=== PATIENT | female | born 1985 | race Caucasian/White ===

== ENCOUNTER 2020-04-08 08:52 | Outpatient (CLI) | payer OTHER, SELFPAY ==
--- NOTE | ~2020-04-08 | US_ITS ---
EXAMINATION: US pelvic complete w TV DATE: 04/08/2020 09:25 INDICATION: Left ovarian cyst. TECHNIQUE: Multiple transabdominal and transvaginal sonographic images of the pelvis were obtained. COMPARISON: None. FINDINGS: TRANSABDOMINAL ULTRASOUND: The uterus measures 9.8 x 5.1 x 5.8 cm. There is no free fluid in the pelvis. TRANSVAGINAL ULTRASOUND: The endometrial complex measures 3 mm in thickness. There is a linear shadowing echogenic structure i n the endometrial complex in the uterine fundus. There is a second linear echogenic structure in the lower uterine segment and cervix. The right ovary measures 3.1 x 2.0 x 2.9 cm. The left ovary measure s 4.4 x 1.5 x 1.1 cm. There is normal vascular flow in the ovaries. IMPRESSION: 1. Two linear echogenic structures in the endometrial complex, one in the fundus, and one in the lowe r uterine segment and cervix. Assuming the patient has only had one intrauterine device placement pro cedure, the lower structure may be a device in abnormal position, and the echogenic structure in the fundus may be calcifications or foci of gas. Alternatively, these structures may be a fractured devic e in two pieces, which would be rare. Reviewed, dictated and finalized at location A. STANT SECRETARY IMPRESSION: 1. Two linear echogenic structures in the endometrial complex, one in the fundu s, and one in the lower uterine segment and cervix. Assuming the patient has on ly had one intrauterine device placement procedure, the lower structure may be a device in abnormal position, and the echogenic structure in the fundus may be calcifications or foci of gas. Alternatively, these structures may be a fractu red device in two pieces, which would be rare.
== END 2020-04-08 08:53 | disposition home or self-care (01) ==
PROVIDERS: Family Provider Family Medicine; PCP Family Medicine; Visit Provider Obstetrics & Gynecology Gynecology
DX: N83.202 Unspecified ovarian cyst, left side (principal)
CPT/HCPCS: 76830; 76856

== ENCOUNTER 2020-04-15 10:40 | Outpatient (CLI) | payer OTHER, SELFPAY ==
--- NOTE | ~2020-04-15 | US_ITS ---
EXAMINATION: US pelvic complete w TV DATE: 04/15/2020 11:22 INDICATION: Check IUD. Comparison:Ultrasound dated 04/08/2020 TECHNIQUE: Multiple transabdominal and endovaginal sonographic images of the pelvis performed. FINDINGS: The uterus measures 9.8 x 4.3 x 5.2 cm. The endometrial complex measures 5 mm. No IUD is id entified. The right ovary measures 2.9 x 4.1 x 1.8 cm and the left ovary measures 3.6 x 2.5 x 1.8 cm. There ar e small follicles in each ovary.Normal doppler signal in both ovaries. There is no free fluid in the pelvis. There are no abnormal masses seen on either side. IMPRESSION: 1. Unremarkable pelvic ultrasound. No IUD identified. Reviewed, dictated and finalized at location B. TING MATERIAL REMOVER
== END 2020-04-15 10:41 | disposition home or self-care (01) ==
PROVIDERS: Visit Provider Obstetrics & Gynecology Gynecology
DX: R93.89 Abnormal findings on diagnostic imaging of other specified body structures (principal)
CPT/HCPCS: 76830; 76856

== ENCOUNTER 2021-05-18 10:42 | Observation (INO) | payer OTHER, SELFPAY ==
[2021-05-18] VITALS (9 sets, daily range): BP systolic 124–176; BP diastolic 86–115; PULSE 70–106; RESP 15–20; TEMP 36.1–37.1; O2SAT 98–100; BMI 28.5
--- NOTE | ~2021-05-18 | XR_ITS ---
EXAMINATION: XR chest 2V DATE: 05/18/2021 11:14 INDICATION: Left chest pain. TECHNIQUE: Frontal and lateral views of the chest were obtained. COMPARISON: None. FINDINGS: There are mild airspace opacities at left lung base. No pleural effusion or pneumothorax. T he heart size is normal. IMPRESSION: 1. Mild airspace opacities at left lung base, consistent with atelectasis versus pneumonia. Reviewed, dictated and finalized at location A. IMPRESSION: 1. Mild airspace opacities at left lung base, consistent with atelectasis versu s pneumonia.
--- NOTE | 2021-05-18 10:52 | ECG_ITS ---
Measurements Intervals [place] Rate: 94 P: 32 AK: 163 QRS: 2 QRSD: 93 T: 80 QT: 352 QTc: 442 Interpretive Statements SINUS RHYTHM POSSIBLE LEFT ATRIAL ENLARGEMENT [-0.1mV P WAVE IN V1/V2] NONSPECIFIC T-WAVE ABNORMALITY INTERPRETATION BASED ON A DEFAULT AGE OF 40 YEARS NO PREVIOUS ECG AVAILABLE FOR COMPARISON Electronically Signed On 05-18-2021 14:01:53 CDT by Kristy Zapata M.D.
[2021-05-18 11:01] LABS: Basophils Percent Auto 0.2 % (0.2-1.2); Eosinophils Absolute Auto 0.1 K/mm3 (0-0.3); Eosinophils Percent Auto 0.9 % (0-4.4); Hematocrit 44.7 % (37.0-47.0); Hemoglobin 15.6 g/dL (12.0-15.0); Immature Granulocyte Absolute 0.02 K/mm3 (0.00-0.031); Immature Granulocyte Percent A 0.2 % (0-0.5); Lymphocytes Percent Auto 22.6 % (18.3-44.2); Mean Corpuscular HGB Conc 34.9 g/dl (32-36); Mean Corpuscular Hemoglobin 30.5 pg (26-34); Mean Corpuscular Volume 87.3 fl (80-100); Mean Platelet Volume 8.6 fl (7.4-10.4); Monocytes Absolute Auto 0.6 K/mm3 (0.1-0.6); Monocytes Percent Auto 6.7 % (2.6-8.5); Neutrophils Absolute Auto 6.1 K/mm3 (1.3-6.7); Neutrophils Percent Auto 69.4 % (45.5-73.1); Platelet Count Result 276 k/mm3 (150-375); Red Blood Count 5.12 M/mm3 (4.2-5.4); Red Cell Distribution Width 11.4 % (11.5-14.5); White Blood Count 8.8 K/mm3 (4.5-10.0)
--- NOTE | 2021-05-18 11:01 | ED.CHESTPAIN ---
HPI - Chest Pain General Chief Complaint: Chest Pain Stated Complaint: Chest pain, L arm pain Time Seen by Provider: 05/18/21 10:47 Source: patient Mode of arrival: ambulatory Limitations: no limitations History of Present Illness HPI narrative: This is a 35-year-old female that presents to the emergency department for left-sided chest pain. Present since early this morning. Reports the pain is a dull, constant pain. It radiates into her left shoulder. It is worse when she moves around sometimes. She tried taking a Tums with little relief. Reports strong family history of CAD. Denies fever, cough, shortness of breath, nausea or vomiting. Related Data Home Medications Medication Instructions Recorded Confirmed amlodipine 10 mg PO DAILY 01/22/19 05/18/21 levonorgestrel [Mirena] 1 device INTRAUTERINE ONCE 01/22/19 05/18/21 ergocalciferol (vitamin D2) 1,250 mcg PO DAILY 05/18/21 05/18/21 lisinopril 20 mg PO DAILY 05/18/21 05/18/21 tramadol 50 mg PO QID 05/18/21 05/18/21 Allergies Allergy/AdvReac Type Severity Reaction Status Date / Time AMOXICILLIN TRIHYDRATE Allergy Mild Uncoded 11/04/18 09:56 POTASSIUM CLAVULANATE Allergy Mild Uncoded 11/04/18 09:56 Review of Systems Review of Systems: CONSTITUTIONAL: Denies fever CARDIOVASCULAR: Reports chest pain. Denies palpitations, or edema. RESPIRATORY: Denies cough or dyspnea. GASTROINTESTINAL: Denies abdominal pain, nausea, vomiting All systems reviewed & are unremarkable except as noted in HPI and below PMFSH Past Medical History Medical History (Updated 05/18/21 @ 13:53 by Liss Florentino PA-C) HTN (hypertension) Surgical History Surgical History (Updated 01/22/19 @ 14:29 by Tere Venegas, DOUBLE END TENON OPERATOR) Hx of tonsillectomy Previous back surgery Social History Social History (Updated 01/22/19 @ 14:30 by Tere Venegas, DOUBLE END TENON OPERATOR) Smoking status: Current every day smoker Tobacco type: cigarettes Alcohol intake: current Alcohol use details: SOCIAL Substance use: never Gender identity (if verbalized by the patient): Female Exam Narrative: GENERAL: Well-appearing, well-nourished, and in no acute distress. HEAD: Normocephalic, atraumatic. EYES: EOMI. CHEST: Clear to auscultation. No respiratory distress. No wheezes rales or rhonchi HEART: Regular rate and rhythm. No murmur heard. Normal peripheral pulses. EXTREMITIES: Normal range of motion. No edema. SKIN: Warm, dry, no rash. NEURO: No focal deficits. Alert and oriented x3. PSYCH: Normal mood and affect Course Consultations Consultation #1: Spoke with Arcelia with the heart care group. No further recommendation for anticoagulation at this time. Will see the patient and decide further plan. Date: 05/18/21 Consultation #2: Spoke with hospitalist about patient and work-up who accepts admission Date: 05/18/21 Vital Signs Vital signs: Vital Signs Temperature 98.5 F 05/18/21 10:46 Pulse Rate 106 H 05/18/21 10:46 Respiratory Rate 16 05/18/21 10:46 Blood Pressure 176/115 H 05/18/21 10:46 Pulse Oximetry 98 05/18/21 10:46 Temperature 98.5 F 05/18/21 10:46 Pulse Rate 76 05/18/21 12:00 Respiratory Rate 18 05/18/21 12:00 Blood Pressure 124/86 05/18/21 12:00 Pulse Oximetry 100 05/18/21 12:00 MDM - Chest Pain MDM Narrative Medical decision making narrative: Patient presents to the emergency department for chest pain ongoing since early this morning. Hypertensive on arrival. This downtrended without intervention. Most recent blood pressure 124/86. CBC shows mild hemoconcentration. Metabolic panel without concerning findings. EKG without acute ST changes. Her baseline troponin was elevated to 0.979. D-dimer is not elevated. Bedside test is negative. Chest x-ray shows mild airspace opacities at the left lung base consistent with atelectasis versus pneumonia. Patient denies any fever or cough. Patient reports relief in her pain with morphine. Given a
[2021-05-18] MEDS: ASPIRIN 81 MG CHEWABLE TABLET 324 MG PO (11:05)
[2021-05-18 11:11] LABS: Prothrombin Time 13.1 Seconds (11.1-14.7)
[2021-05-18 11:12] LABS: Alanine Aminotransferase 28 U/L (4-35); Albumin Level 4.7 g/dL (3.5-5.1); Alkaline Phosphatase 68 U/L (38-126); Anion Gap 9 mmol/L (8-16); Aspartate Amino Transferase 42 U/L (14-36); Bilirubin,Total 0.5 mg/dL (0.2-1.3); Blood Urea Nitrogen 7 mg/dL (7-17); Calcium 9.4 mg/dL (8.4-10.2); Carbon Dioxide 25 mmol/L (22-30); Chloride 102 mmol/L (98-107); Estimated CRCL calculation 129 ml/min; Estimated Glomerular Filt Rate > 60; Glucose 138 mg/dL (65-110); Lipase 78 U/L (23-300); Partial Thromboplastin Time 22.4 SECONDS (22.3-36.8); Potassium 3.6 mmol/L (3.4-5.0); Sodium 136 mmol/L (137-145)
[2021-05-18 11:26] LABS: Troponin I 0.979 ng/mL (0.000-0.034)
[2021-05-18] MEDS: MORPHINE SULFATE (*CRX) 2 MG/ML INJ IV PUSH (11:27)
[2021-05-18] MEDS: FAMOTIDINE 20 MG/2 ML VIAL IV PUSH (11:27)
[2021-05-18] MEDS: ONDANSETRON INJ 4 MG/2 ML VIAL IV PUSH (11:27)
[2021-05-18 11:28] LABS: D Dimer 0.27 ug/mL (<0.48)
--- NOTE | 2021-05-18 14:47 | ADMGEN ---
This patient, Antonia Kraft, was admitted to [facility] at 1432 from the ED. Patient/family oriented to hospital policies and general routines including ID bracelet, bed and alarms, visiting hours, pain management, procedures, bathroom and other care routines, personal items, smoking policy, room service/diet, and visiting hours. Information on how to activate the Rapid Response Team has been discussed. Patient/Family are encouraged to report perceived risks to care and to ask questions if they do not understand what they are told or what they should do.
--- NOTE | 2021-05-18 15:29 | PM.CNCAR ---
Assessment and Plan Assessment and plan (1) NSTEMI (non-ST elevated myocardial infarction): Code(s): I21.4 - Non-ST elevation (NSTEMI) myocardial infarction Status: Acute Assessment and Plan: Young woman who presents with an NSTEMI. Hemodynamically stable but has some mild recurrent discomfort this afternoon. Heparin drip Aspirin, metoprolol, atorvastatin, p.r.n. nitro, p.r.n. morphine Check lipids Check test EKG in the morning Cardiac catheterization tomorrow. Reviewed the procedure with the patient and her significant other, Jose. Reviewed possible risks and complications with patient including breathing problems, bleeding problems, blood vessel problems, unanticipated surgery, allergic reactions, kidney problems, CVA, DC, and among others. Discussed possibility of stenting and possible need for DAPT. Discussed the possibility that if DAPT is interrupted stent thrombosis can occur resulting in heart attack and . Patient understands risks and desires to proceed. (2) Hypertension: Code(s): I10 - Essential (primary) hypertension Status: Acute Assessment and Plan: Has been controlled with amlodipine and lisinopril. History of Present Illness History of Present Illness Consult date/time: 05/18/21 15:29 Requesting physician: Liss Florentino PA-C Consult reason: chest pain Reason For Visit: [facility], Elevated Troponin Narrative: Antonia Kraft (jareth Lowe) is a 29-year-old female whom I was asked to see at the request of Dr. George for my advice and opinion regarding her chest pain and elevated troponins in consultation. Antonia felt tired yesterday but was otherwise in her normal state of health. Around 3:00 a.m. she woke up with left-sided chest discomfort radiating strongly to her left arm. There was an hard to describe pain. She was able to go back to sleep and on awakening she had mild discomfort. She went to work but the discomfort intensified she felt very very weak and tired. There were no associated symptoms. She was brought to the emergency room and given aspirin and morphine with relief. Troponins are 0.979 and 2.880. Some mild discomfort has returned this afternoon. Renee has history of hypertension but no diabetes or hyperlipidemia. She quit smoking 2 years ago but does vape. She has a strong family history of premature heart disease with her father having his 1st DC age 31 and brother having his DC age 36. She has been able to exert-- as much as her back pain will allow -- w/o cardiac sx. She has an IUD. No bleeding problems. EKG today at 10:48 a.m. showed sinus rhythm with some nonspecific ST changes, personally reviewed. Review of Systems Constitutional: Constitutional: Reports fatigue and Reports weakness Eyes: Eyes: Reports no additional eye complaints ENT: Denies epistaxis Cardiovascular: Cardiovascular: Reports chest pain, Denies diaphoresis, Denies pedal edema, Denies leg edema, Denies lightheadedness and Denies palpitations Respiratory: Respiratory: Denies dyspnea and Denies dyspnea on exertion Gastrointestinal: Gastrointestinal: Denies abdominal pain, Denies hematochezia and Denies hematemesis Genitourinary: Genitourinary: Denies hematuria Musculoskeletal: Musculoskeletal: Reports myalgias Comments: Slipped and fell in bathroom recently; soreness and bruises on right hip and face. Integumentary/Breasts: Skin/Breast: Denies rash Neurologic: Reports headache(s) Psychiatric: Psychiatric: Reports no additional psychiatric complaints [facility], [facility] Past Medical History Medical History (Updated 05/18/21 @ 16:24 by Kristy Zapata MD) Chronic back pain HTN (hypertension) Hypertension NSTEMI (non-ST elevated my
[2021-05-18] MEDS: HEPARIN SOD/D5W 100 UNITS/ML 25,000 UNITS/250 ML BAG 9 UNITS IV CONT (16:50)
--- NOTE | 2021-05-18 17:00 | PM.IMHP ---
H&P: HPI History of Present Illness Date/Time: 05/18/21 17:00 Chief Complaint: Chest pain. Narrative: This is a pleasant 35-year-old female with hypertension who presented to the emergency department for evaluation of chest pain. She was awakened from sleep at about 03:00 with left anterior chest pain radiating to the left upper arm which she has a difficult time describing. The closes she could come is a severe aching pain. Initially she thought perhaps she slept on her arm wrong and the discomfort eased up after while and she was able to fall black asleep. The discomfort was still there when she got up this morning but was not nearly as severe and she was able to go to work however while at work the discomfort intensified and she began to feel extremely weak with sweats and fatigue. EKG on arrival to the emergency department showed a sinus rhythm with some nonspecific ST changes and her initial troponin was elevated at 0.979 with a 3 hour troponin of 2.880. She has since been started on a heparin drip and she will be going to the clinical laboratory manager tomorrow. At the time my evaluation she is understandably a bit anxious but she is otherwise feeling okay. Prior to today she has not had any chest discomfort, either at rest or with exertion. It should be noted she has a history of premature coronary artery disease with her father having his 1st NV at the age of 31 and her half brother having his 1st NV at the age of 36. Review of Systems Review of Systems: Twelve systems were reviewed. No fever or chills. She frequently sweats but it was perhaps a bit more today. No recent cold or flu symptoms though she did have COVID at the beginning of the year. No orthopnea, PND, or lower extremity edema. She denies shortness of breath, pleuritic pain, and cough. No nausea, vomiting, or diarrhea. No syncope or near syncope. Except as documented, all other systems were reviewed and are negative. PENDING SALE TO [facility] Past Medical History Medical History Chronic back pain Hypertension NSTEMI (non-ST elevated myocardial infarction) (05/18/21) Psoriasis Psoriatic arthritis Surgical History Surgical History (Updated 05/18/21 @ 21:25 by Tamara Lazo PA-C) History of back surgery History of tonsillectomy Family History Family History Father Heart attack, Onset Age: 31 Three heart attacks Hx of CABG And valve surgery Sleep apnea Sibling Heart attack, Onset Age: 36 Grandparent Breast cancer COPD (chronic obstructive pulmonary disease) Mother Leukemia COPD (chronic obstructive pulmonary disease) Sleep apnea Psoriasis Social History Social History (Updated 05/18/21 @ 21:25 by Tamara Lazo PA-C) Social History: Works as a [employer]. Significant other is Bill. Two children ages 8 and 17 (as of 05/2021) Smoking packs per day: 0.5 Smoking cigarettes per day: 10.0 Years smoked: 15 Smoking pack-years: 7.50 Smoking status: Former smoker Tobacco type: cigarettes and e-cigarettes/vaping Alcohol intake: never Alcohol use details: SOCIAL Substance use: never Substance use type: does not use Spiritual care concerns: No Meds Home Medications and Allergies Home Medications Medication Instructions Recorded Confirmed Type amlodipine 10 mg PO DAILY 01/22/19 05/18/21 History levonorgestrel [Mirena] 1 device INTRAUTERINE ONCE 01/22/19 05/18/21 History ergocalciferol (vitamin D2) 1,250 mcg PO WEEKLY 05/18/21 05/18/21 History ibuprofen 800 mg BYMOUTH DAILY 05/18/21 05/18/21 History lisinopril 20 mg PO DAILY 05/18/21 05/18/21 History tramadol 50 mg PO QID 05/18/21 05/18/21 History Allergies Allergy/AdvReac Type Severity Reaction Status Date / Time amoxicillin [From Augmentin] Allergy Itching Verified 05/18/21 15:32 clavulanic acid Allergy Itching Verified 05/18/21 15:32 [From Augmentin] AMOXIC
[2021-05-18 17:14] LABS: Cholesterol 209 mg/dL (0-200); HDL Direct 38 mg/dL; Triglycerides 132 mg/dL (<150)
[2021-05-18 17:25] LABS: LDL Cholesterol Direct 141 mg/dL
[2021-05-18] MEDS: METOPROLOL TARTRATE 25 MG TABLET PO (20:59)
[2021-05-18] MEDS: traMADol HCL (*CRX) 50 MG TABLET PO (22:16)
[2021-05-18 23:31] LABS: Partial Thromboplastin Time 25.2 SECONDS (22.3-36.8)
[2021-05-18] MEDS: HEPARIN SODIUM 5,000 UNITS/ML VIAL 4000 UNITS IV PUSH (23:52)
[2021-05-18] MEDS: HEPARIN SOD/D5W 100 UNITS/ML 25,000 UNITS/250 ML BAG 12 UNITS IV CONT (23:53)
[2021-05-19] VITALS (24 sets, daily range): BP systolic 92–135; BP diastolic 62–92; PULSE 60–87; RESP 12–20; TEMP 35.7–36.9; O2SAT 96–100
[2021-05-19 06:01] LABS: Anion Gap 7 mmol/L (8-16); Blood Urea Nitrogen 9 mg/dL (7-17); Carbon Dioxide 25 mmol/L (22-30); Chloride 103 mmol/L (98-107); Estimated CRCL calculation 129 ml/min; Estimated Glomerular Filt Rate > 60; Glucose 132 mg/dL (65-110); Magnesium 1.7 mg/dL (1.6-2.3); Potassium 3.6 mmol/L (3.4-5.0); Sodium 135 mmol/L (137-145)
[2021-05-19 06:09] LABS: Partial Thromboplastin Time 39.1 SECONDS (22.3-36.8)
[2021-05-19] MEDS: traMADol HCL (*CRX) 50 MG TABLET PO ×2 (06:40→12:32)
[2021-05-19] MEDS: HEPARIN SODIUM 5,000 UNITS/ML VIAL 4000 UNITS IV PUSH (06:41)
[2021-05-19 07:41] LABS: Basophils Percent Auto 0.4 % (0.2-1.2); Eosinophils Absolute Auto 0.2 K/mm3 (0-0.3); Eosinophils Percent Auto 2.2 % (0-4.4); Hematocrit 43.1 % (37.0-47.0); Hemoglobin 14.9 g/dL (12.0-15.0); Immature Granulocyte Absolute 0.02 K/mm3 (0.00-0.031); Immature Granulocyte Percent A 0.3 % (0-0.5); Lymphocytes Percent Auto 43.7 % (18.3-44.2); Mean Corpuscular HGB Conc 34.6 g/dl (32-36); Mean Corpuscular Volume 89.8 fl (80-100); Mean Platelet Volume 9.9 fl (7.4-10.4); Monocytes Absolute Auto 0.6 K/mm3 (0.1-0.6); Monocytes Percent Auto 7.7 % (2.6-8.5); Neutrophils Absolute Auto 3.4 K/mm3 (1.3-6.7); Neutrophils Percent Auto 45.7 % (45.5-73.1); Platelet Count Result 239 k/mm3 (150-375); Red Cell Distribution Width 11.6 % (11.5-14.5); White Blood Count 7.3 K/mm3 (4.5-10.0)
--- NOTE | 2021-05-19 07:43 | WPDMODSED ---
Moderate Sedation Note-Pt Data Patient Data Diagnosis: NSTEMI Present Complaint: Chest pain Procedure to be performed/Plan: [facility] Allergies Allergy/AdvReac Type Severity Reaction Status Date / Time amoxicillin [From Augmentin] Allergy Itching Verified 05/18/21 15:32 clavulanic acid Allergy Itching Verified 05/18/21 15:32 [From Augmentin] AMOXICILLIN TRIHYDRATE Allergy Mild Unknown Uncoded 05/18/21 15:32 POTASSIUM CLAVULANATE Allergy Mild Unknown Uncoded 05/18/21 15:32 Home Medications Medication Instructions Recorded Confirmed Type amlodipine 10 mg PO DAILY 01/22/19 05/18/21 History levonorgestrel [Mirena] 1 device INTRAUTERINE ONCE 01/22/19 05/18/21 History ergocalciferol (vitamin D2) 1,250 mcg PO WEEKLY 05/18/21 05/18/21 History ibuprofen 800 mg BYMOUTH DAILY 05/18/21 05/18/21 History lisinopril 20 mg PO DAILY 05/18/21 05/18/21 History tramadol 50 mg PO QID 05/18/21 05/18/21 History Current Medications: Active Medications Amlodipine Besylate (Amlodipine Besylate 5 Mg Tablet) 10 mg PO DAILY [facility] Aspirin (Aspirin 81 Mg Chewable Tablet) 81 mg PO DAILY@0800 [facility] Atorvastatin Calcium (Atorvastatin 40 Mg Tablet) 40 mg PO DAILY [facility] Heparin Sodium (Porcine) (Heparin Sodium 5,000 Units/Ml Vial) 4,000 units IV PUSH PRN PRN PRN Reason: aPTT less than 55 seconds Last Admin: 05/19/21 06:41 Dose: 4,000 units Documented by: Heparin Sodium (Porcine) (Heparin Sodium 5,000 Units/Ml Vial) 3,000 units IV PUSH PRN PRN PRN Reason: aPTT 55 - 70 seconds Heparin Sodium/Dextrose (Heparin Sodium/D5w 100 Units/Ml) 25,000 units in 250 mls @ 15 mls/hr IV CONT .[id number] [facility]; Protocol Last Titration: 05/19/21 06:42 Dose: 1,500 units/hr, 15 mls/hr Documented by: Sodium Chloride (Normal Saline Iv) 500 mls @ 100 mls/hr IV CONT .Q5H [facility] Lisinopril (Lisinopril 20 Mg Tablet) 20 mg PO QAM [facility] Lisinopril (Lisinopril 20 Mg Tablet) 20 mg PO DAILY [facility] Metoprolol Tartrate (Metoprolol Tartrate 25 Mg Tablet) 25 mg PO Q8HR [facility] Last Admin: 05/18/21 20:59 Dose: 25 mg Documented by: Morphine Sulfate (Morphine Sulfate (*Crx) 2 Mg/Ml Inj) 2 mg IV PUSH Q2H PRN PRN Reason: Pain Rated 4-6 Nitroglycerin (Nitroglycerin Sl 0.4 Mg Tablet) 0.4 mg SUBLINGUAL Q5MIN PRN PRN Reason: Chest Pain Tramadol HCl (Tramadol Hcl (*Crx) 50 Mg Tablet) 50 mg PO QID PRN PRN Reason: Pain 4-6 Last Admin: 05/19/21 06:40 Dose: 50 mg Documented by: Sedation/Anesthesia: No previous sedation/anesthesia problems (including family history). [facility] Past Medical History Medical History Chronic back pain Hypertension NSTEMI (non-ST elevated myocardial infarction) (05/18/21) Psoriasis Psoriatic arthritis Surgical History Surgical History (Updated 05/18/21 @ 21:25 by Tamara Lazo PA-C) History of back surgery History of tonsillectomy Family History Family History Father Heart attack, Onset Age: 31 Three heart attacks Hx of CABG And valve surgery Sleep apnea Sibling Heart attack, Onset Age: 36 Grandparent Breast cancer COPD (chronic obstructive pulmonary disease) Mother Leukemia COPD (chronic obstructive pulmonary disease) Sleep apnea Psoriasis Social History Social History (Updated 05/18/21 @ 21:25 by Tamara Lazo PA-C) Social History: Works as a [employer]. Significant other is Bill. Two children ages 8 and 17 (as of 05/2021) Smoking packs per day: 0.5 Smoking cigarettes per day: 10.0 Years smoked: 15 Smoking pack-years: 7.50 Smoking status: Former smoker Tobacco type: cigarettes and e-cigarettes/vaping Alcohol intake: never Alcohol use details: SOCIAL Substance use: never Substance use type: does not use Spiritual care concerns: No Mod Sed Physical Exam Physical Exam Pre Procedural Exam: Normal: Appearance, Neck, Throat, Airway, Lungs, Heart Size, Heart Ra
--- NOTE | 2021-05-19 08:00 | ECG_ITS ---
Measurements Intervals [place] Rate: 79 P: 43 [place]: 190 QRS: 7 QRSD: 94 T: 79 QT: 402 QTc: 462 Interpretive Statements SINUS RHYTHM NONSPECIFIC T-WAVE ABNORMALITY COMPARED TO ECG 05/18/2021 10:48:43 NO SIGNIFICANT CHANGES Electronically Signed On 05-19-2021 16:06:58 CDT by Kashmir Estes M.D.
[2021-05-19] MEDS: METOPROLOL TARTRATE 25 MG TABLET PO (08:13)
[2021-05-19] MEDS: ASPIRIN 81 MG CHEWABLE TABLET PO (08:14)
[2021-05-19] MEDS: SODIUM CHLORIDE 0.9% IV 500 ML 100 ML IV CONT (08:14)
[2021-05-19 08:23] LABS: SPREG INTERNAL CONTROL Positive; Serum Qual hCG Negative
[2021-05-19] MEDS: amLODIPine BESYLATE 5 MG TABLET 10 MG PO (09:26)
[2021-05-19] MEDS: lisinopriL 20 MG TABLET PO (09:26)
[2021-05-19] MEDS: ATORVASTATIN 40 MG TABLET PO (09:27)
--- NOTE | 2021-05-19 10:41 | WPDCARDPROC ---
Cardiac Cath Procedure Note Date of procedure:: 05/19/21 Performing physician:: Kashmir Estes MD Indication:: Acute coronary syndrome/ non ST-elevation AK Brief clinical history:: this is a 35-year-old woman without previous cardiac history. She has a longstanding cigarette smoker and has a family history of premature ischemic heart disease. She entered the hospital with ischemic symptoms and a moderate troponin rise and in this setting and angiogram has been recommended. Procedure Procedure performed:: Left ventriculogram coronary angiogram Angio-Seal to right femoral artery Sedation/Medication given:: fentanyl 50 mg Versed 2 mg case start time 10:14 a.m. case end time 10:33 a.m. Access site:: right femoral artery Estimated blood loss:: 20 cc Procedure note:: patient was brought to the cardiac catheterization lab in the postabsorptive state where the right femoral triangle prepared draped fashion. Anesthesia was provided with 1% lidocaine infiltrated locally. Using the modified Seldinger technique the right common femoral artery was punctured and a 5 [place] vascular sheath was placed. After this left heart catheterization was carried a 5 [place] angled pigtail catheter to measure left-sided hemodynamics and to inject LV g in the RUIZ projection. After this a standard 5 [place] FL4 catheter to engage and inject the left coronary artery and then a 5 [place] JR4 catheter to engage and inject the right coronary artery. The cineangiograms carefully and the procedure was terminated. An angiogram was done of the femoral artery through the sheath after which an Angio-Seal device was deployed with a good hemostatic result. There were no procedural complications and she left the pharmaceutical laboratory technician with no evidence of a groin hematoma. Findings:: Hemodynamics: Central aortic pressure is 1 52 86 left ventricle 152/0 end-diastolic 10 there is no gradient on pullback across the aortic valve. Left ventricle: The LV is normal in size all segments contract appropriately the global ejection fraction is 55% the left main coronary artery is nicely patent the left anterior descending is a medium caliber artery. The proximal LAD has mild atherosclerotic plaquing with no more than 20-30% stenosis. The diagonal branch of the LAD is a bifurcating vessel Quite small in caliber and has a 90% stenosis at its mid bifurcation point. the circumflex is a codominant vessel giving rise to the marginal branches and several posterior branches. The circumflex is free of significant disease except for a very small distal less than 1 mm posterior branch that has about 70-80% stenosis. The right coronary artery is medium in caliber codominant terminating in RPDA. The right coronary artery itself significant disease there is mild plaquing in the midportion of the PDA but no significant stenosis is seen. Conclusion:: 1. Coronary artery disease with a codominant circulation and 90% stenosis seen in a small diagonal branch of the LAD at a bifurcation point. 2. No significant large vessel lesions are noted 3. preserved left ventricular systolic function 4. medical therapy for this coronary disease will be recommended at this point Kashmir Estes MD [facility]
[2021-05-19] MEDS: MORPHINE SULFATE (*CRX) 2 MG/ML INJ IV PUSH (11:23)
[2021-05-19] MEDS: SODIUM CHLORIDE 0.9% IV 1,000 ML 125 ML IV CONT (11:25)
--- NOTE | 2021-05-19 14:34 | PM.IMPN ---
Progress Note: A&P Assessment and Plan (1) NSTEMI (non-ST elevated myocardial infarction): Onset Date: 05/18/21 Code(s): I21.4 - Non-ST elevation (NSTEMI) myocardial infarction Status: Acute Assessment and Plan: Presented with chest pain radiating to the left arm Troponins elevated to 3.28 Patient has strong family history of early cardiac disease Appreciate cardiology consultation Patient was started on heparin drip which has now been discontinued Underwent cardiac catheterization on 05/19/2021 which showed coronary artery disease with codominant circulation 90% stenosis of the small diagonal branch of the LAD at the bifurcation point, no significant large vessel lesions, preserved LV systolic function She will be managed with medical therapy including aspirin, atorvastatin, metoprolol succinate 50 mg daily, isosorbide mononitrate 30 mg daily, lisinopril 20 mg daily (2) Hypertension: Code(s): I10 - Essential (primary) hypertension Status: Acute Assessment and Plan: Blood pressures reviewed and were elevated on presentation but have normalized. S BP 127/70 Continue amlodipine, lisinopril, and metoprolol Monitor blood pressure trends Subjective Date/time seen: 05/19/21 14:34 Interval history: Date of service: 05/19/2021 Antonia Kraft is a 35-year-old female with a history of hypertension, chronic back pain, and family history of premature heart disease who is seen in follow-up for NSTEMI. When I saw the patient prior to her cardiac catheterization. She admitted to feeling nervous for the procedure but otherwise was feeling in her usual state of health and had no symptoms. Her chest pain had resolved. Denies arm pain, jaw pain, nausea, vomiting, sweats, dizziness, lightheadedness. She is NPO for the procedure. She has no additional concerns. No abdominal pain, nausea, vomiting, diarrhea, urinary symptoms. No shortness of breath or cough. Review of Systems Review of Systems: All systems reviewed & are unremarkable except as noted in HPI and below Exam Narrative: General: Well nourished, well appearing 35 year-old female, sitting up in bed, comfortable, NARD Neuro: awake, alert and oriented x4, speech clear, no focal neuro deficits noted HEENMT: normocephalic, atraumatic, EOMI, sclerae anicteric, moist oral mucosa Respiratory: clear to auscultation bilaterally, nonlabored breathing Cardio: regular rate, regular rhythm with S1-S2 Abdomen: nondistended, normoactive bowel sounds, soft, nontender to palpation Extremities: no edema, erythema, or tenderness to palpation Skin: no rashes or lesions, warm and dry Psych: appropriate mood and affect, judgment and insight intact Objective Data Vital Signs Vital Signs: Vital Signs - 24 hr 05/18/21 14:45 05/18/21 16:00 05/18/21 18:00 Temperature 97.4 F L 98.5 F Pulse Rate 74 92 93 Respiratory Rate 17 15 Blood Pressure 141/95 H 141/93 H Pulse Oximetry 98 98 05/18/21 20:00 05/18/21 20:59 05/18/21 22:00 Temperature 98.7 F Pulse Rate 88 102 H 84 Respiratory Rate 20 Blood Pressure 154/104 H Pulse Oximetry 98 05/18/21 23:43 05/19/21 00:00 05/19/21 02:00 Temperature 97.0 F L Pulse Rate 70 78 66 Respiratory Rate 20 20 Blood Pressure 134/90 Pulse Oximetry 98 98 05/19/21 04:00 05/19/21 06:00 05/19/21 08:00 Temperature 96.3 F L 98.1 F Pulse Rate 79 74 87 Respiratory Rate 18 20 Blood Pressure 119/73 134/91 H Pulse Oximetry 98 98 05/19/21 09:47 05/19/21 11:00 05/19/21 11:15 Temperature Pulse Rate 65 66 67 Respiratory Rate 15 14 Blood Pressure 133/83 135/92 H Pulse Oximetry 96 97 05/19/21 11:30 05/19/21 11:45 05/19/21 12:00 Temperature Pulse Rate 68 68 64 Respiratory Rate 14 Blood Pressure 131/85 120/77 Pulse Oximetry 97 96 98 05/19/21 12:10 05/19/21 12:40 05/19/21 13:40 Temperature 97.7 F 97.7 F Pulse Rate 64 64 67 Respiratory Rate 14 12 12 Blood
[2021-05-19] MEDS: ACETAMINOPHEN 325 MG TABLET 650 MG PO (17:10)
[2021-05-19] MEDS: ONDANSETRON INJ 4 MG/2 ML VIAL IV PUSH (17:10)
[2021-05-20] VITALS (7 sets, daily range): BP systolic 100–116; BP diastolic 53–55; PULSE 64–89; RESP 16; TEMP 36.2–36.5; O2SAT 99–100
[2021-05-20] MEDS: METOPROLOL SUCCINATE EXT REL 50 MG TABCR PO (09:58)
[2021-05-20] MEDS: lisinopriL 20 MG TABLET PO (09:58)
[2021-05-20] MEDS: amLODIPine BESYLATE 5 MG TABLET 10 MG PO (09:59)
[2021-05-20] MEDS: ISOSORBIDE MONONITRATE 30 MG TAB.ER.24H PO (09:59)
[2021-05-20] MEDS: ATORVASTATIN 40 MG TABLET PO (10:00)
[2021-05-20] MEDS: ASPIRIN 81 MG CHEWABLE TABLET PO (10:00)
[2021-05-20] MEDS: traMADol HCL (*CRX) 50 MG TABLET PO (10:03)
--- NOTE | 2021-05-20 10:49 | PM.PNCARD ---
Progress Note: A&P Assessment and Plan (1) NSTEMI (non-ST elevated myocardial infarction): Onset Date: 05/18/21 Code(s): I21.4 - Non-ST elevation (NSTEMI) myocardial infarction Status: Acute Assessment and Plan: Young woman who presents with an NSTEMI. Hemodynamically stable but has some mild recurrent discomfort this afternoon. Aspirin, metoprolol, atorvastatin, p.r.n. nitro Cardiac catheterization revealed high-grade small vessel stenosis which will be treated medically. Continue the above medications in addition to isosorbide mononitrate. Will add clopidogrel 75 mg p.o. daily x1 year. She should follow up in the office in 2-4 weeks. She can return to work on Saturday with light duties. Standard groin/post cardiac catheterization precautions apply . Continue to avoid smoking. Okay for discharge from my perspective (2) Hypertension: Code(s): I10 - Essential (primary) hypertension Status: Acute Assessment and Plan: At goal. Subjective Date/time seen: 05/20/21 10:49 Interval history: Antonia Kraft is a 35-year-old female with a history of hypertension, chronic back pain, and family history of premature heart disease who is seen in follow-up for NSTEMI. Follow-up note/date of service 05/20/2021: She feels well today. She has no chest pain, shortness of breath. No groin pain. She did have a headache yesterday with nitroglycerin. Review of Systems Constitutional: Constitutional: Reports fatigue, Reports headache(s) and Reports weakness Eyes: Eyes: Reports no additional eye complaints ENT: Reports headache(s) and Denies epistaxis Cardiovascular: Cardiovascular: Reports chest pain, Denies diaphoresis, Denies pedal edema, Denies leg edema, Denies lightheadedness, Denies palpitations, Denies dyspnea and Denies dyspnea on exertion Respiratory: Respiratory: Denies dyspnea and Denies dyspnea on exertion Gastrointestinal: Gastrointestinal: Denies abdominal pain, Denies hematochezia and Denies hematemesis Genitourinary: Genitourinary: Denies hematuria Musculoskeletal: Musculoskeletal: Reports myalgias Integumentary/Breasts: Skin/Breast: Denies rash Neurologic: Reports headache(s) and Reports weakness Psychiatric: Psychiatric: Reports no additional psychiatric complaints Endocrine: Endocrine: Reports fatigue and Denies palpitations Exam Narrative: Pleasant, overweight young woman who appears upset but is not in any respiratory distress Const: General: no acute distress HENMT: General nose exam: Normal nares present and no epistaxis Mouth: Yes moist mucous membranes Eyes: EOM: EOMs intact bilaterally Neck: Neck: supple and no JVD Thyroid: thyroid normal Carotids: no bruits Lymphatic: lymphadenopathy not noted Resp: Effort & Inspection: normal respiratory effort Auscultation: clear to auscultation bilaterally Cardio: Rate: regular rate Rhythm: regular rhythm Heart sounds: Murmur heart sound present (1/6 MARBELLA upper sternal border) Other: Femoral pulses are intact with no bruits. Pedal pulses are intact Right groin without hematoma ecchymosis or bruit GI: Inspection: non-distended Skin: General skin exam: normal color and no rashes or lesions noted Neuro: Cognition (Neuro): normal cognition Speech: normal speech Motor exam (neuro): Normal motor muscle tone present throughout Extrem: General: no edema and no pedal edema Psych: Mental Status: mental status grossly normal Affect: No Anxious affect present Objective Data Vital Signs Vital Signs: Vital Signs - 24 hr 05/19/21 11:00 05/19/21 11:15 05/19/21 11:30 Temperature Pulse Rate 66 67 68 Respiratory Rate 15 14 Blood Pressure 133/83 135/92 H 131/85 Pulse Oximetry 96 97 97 05/19/21 11:45 05/19/21 12:00 05/19/21 12:10 Temperature 36.5 C Pulse Rate 68 64 64 Respirator
--- NOTE | 2021-05-20 11:30 | PM.DS ---
DS: Admitting Diagnosis Discharge Date 05/19/2021 Admitting Diagnosis NSTEMI DS: Discharge Diagnosis Discharge Diagnosis (1) NSTEMI (non-ST elevated myocardial infarction): Onset Date: 05/18/21 Code(s): I21.4 - Non-ST elevation (NSTEMI) myocardial infarction Status: Acute Assessment and Plan: Presented with chest pain radiating to the left arm Troponins elevated to 3.28 Patient has strong family history of early cardiac disease Patient was started on heparin drip prior to catheterization Underwent cardiac catheterization on 05/19/2021 which showed coronary artery disease with codominant circulation 90% stenosis of the small diagonal branch of the LAD at the bifurcation point, no significant large vessel lesions, preserved LV systolic function She will be managed with medical therapy including aspirin, atorvastatin, metoprolol succinate 50 mg daily, isosorbide mononitrate 30 mg daily, lisinopril 20 mg daily, clopidogrel 75 mg daily for 1 year Follow-up with cardiology on 06/28/2021 (2) Hypertension: Code(s): I10 - Essential (primary) hypertension Status: Acute Assessment and Plan: Blood pressures reviewed and were elevated on presentation but normalized and were subsequently well controlled Continue amlodipine, lisinopril, and metoprolol DS: Summary Hospital Course Hospital Course: Date of admission: 05/18/2021 Date of discharge: 05/20/2021 Antonia Kraft is a 35-year-old female with a history of hypertension, chronic back pain, and family history of premature heart disease who presented to the emergency department on 05/18/2021 with complaints of left-sided chest pain described as a constant, dull ache radiating to the left shoulder. On admission, she was found to have elevated BP and was mildly tachycardic, troponin was 0.979 and increased to 3.280, an EKG showed no ST changes. She was admitted to the hospitalist service for further evaluation and management was seen in consultation by cardiology. Please see above for further details. She underwent cardiac catheterization which revealed high-grade small vessel stenosis that will be managed with medical therapy. Counseled to avoid NSAIDs while on aspirin and Plavix. She did develop mild tenderness and erythema of the left ventral forearm at the site of IV insertion. Instructed to apply warm compresses 4-6 times per day and seek medical care if no improvement in the next 24-48 hours. Patient was feeling overall improved. Her chest pain had resolved entirely. Given her overall improvement, she was determined to no longer require inpatient care and was felt to be stable for discharge. Cardiology in agreement with discharge plans. I discussed with the patient and her significant other worrisome signs and symptoms for which to return and she was educated on her medications. She was discharged in hemodynamically stable condition on 05/20/2021. Status at Discharge Functional status at discharge: independent ambulation Time Spent with Patient Time attestation: Total time spent providing and/or coordinating discharge services: 40 minutes Time spent: Greater than 30 minutes Exam Narrative: General: Well nourished, well appearing 35 year-old female, sitting up in bed, comfortable, NARD Neuro: awake, alert and oriented x4, speech clear, no focal neuro deficits noted HEENMT: normocephalic, atraumatic, EOMI, sclerae anicteric, moist oral mucosa Respiratory: clear to auscultation bilaterally, nonlabored breathing Cardio: regular rate, regular rhythm with S1-S2 Abdomen: nondistended, normoactive bowel sounds, soft, nontender to palpation Extremities: no edema, erythema, or tenderness to palpation Skin: no rashes or lesions, warm and dry Psych: appropriate mood and affect, judgment and insight intact DS: Data Data Completed and Pending Labs on day of discharge: Labs from last 24 hours 05/19/21 05/19/21 05/19/21 12:47 07:36 05
[2021-05-20] MEDS: CLOPIDOGREL BISULFATE 75 MG TABLET PO (12:12)
== END 2021-05-20 12:25 | disposition home or self-care (01) ==
LOC: ANHED 13:53 → ANHCPC 13:56 → ANHIMU 05-19 15:58
PROVIDERS: Internal Medicine Cardiovascular Disease; Physician Assistant; Specialist; Admitting Provider Family Medicine; Emergency Provider Emergency Medicine; PCP Family Medicine; Visit Provider Family Medicine
PROC: 4A023N7 Measurement of Cardiac Sampling and Pressure, Left Heart, Percutaneous Approach (ICD-10-PCS; CPT 93452; principal; 2021-05-19 10:30)
DX: I21.4 Non-ST elevation (NSTEMI) myocardial infarction (principal); I10 Essential (primary) hypertension; R77.8 Other specified abnormalities of plasma proteins; M54.9 Dorsalgia, unspecified; G89.29 Other chronic pain; L40.50 Arthropathic psoriasis, unspecified; F17.290 Nicotine dependence, other tobacco product, uncomplicated; Z82.49 Family history of ischemic heart disease and other diseases of the circulatory system
CPT/HCPCS: 36415; 71046; 80048; 80053; 80061; 81025; 83690; 83735; 84484; 84703; 85025; 85380; 85610; 85730; 93005; 93458; 96361; 96365; 96366; 96367; 96375; 99285; A9270; C1760; C1887; C1894; G0269; G0378; J0131; J1644; J2250; J2270; J2405; J3010; J7030; J7040

== ENCOUNTER 2021-11-07 07:57 | Emergency (ER) | payer OTHER, SELFPAY ==
[2021-11-07] VITALS (8 sets, daily range): BP systolic 100–118; BP diastolic 69–78; PULSE 62–70; RESP 12–20; TEMP 36.1; O2SAT 98–100
--- NOTE | ~2021-11-07 | XR_ITS ---
EXAMINATION: XR chest 2V DATE: 11/07/2021 08:44 INDICATION: Chest pain. TECHNIQUE: Frontal and lateral views of the chest were obtained. COMPARISON: Chest 2 views 05/18/2021 FINDINGS: There is no pneumonia, pleural effusion, pneumothorax or the heart size is normal. IMPRESSION: 1. No acute cardiopulmonary disease. Reviewed, dictated and finalized at location A.
--- NOTE | 2021-11-07 08:00 | ECG_ITS ---
Measurements Intervals [place] Rate: 63 P: 44 KS: 215 QRS: 15 QRSD: 91 T: 57 QT: 411 QTc: 423 Interpretive Statements SINUS RHYTHM WITH FIRST DEGREE AV BLOCK BORDERLINE ST-T WAVE ABNORMALITY- HIGH LATERAL LEADS BORDERLINE ECG COMPARED TO ECG 05/19/2021 09:05:57 FIRST DEGREE AV BLOCK NOW PRESENT Electronically Signed On 11-07-2021 9:27:44 CDT by Addi Faust D.O.
[2021-11-07 08:31] LABS: Basophils Percent Auto 0.1 % (0.2-1.2); Eosinophils Absolute Auto 0.1 K/mm3 (0-0.3); Hematocrit 39.3 % (37.0-47.0); Hemoglobin 13.6 g/dL (12.0-15.0); Immature Granulocyte Absolute 0.02 K/mm3 (0.00-0.031); Immature Granulocyte Percent A 0.3 % (0-0.5); Lymphocytes Absolute Auto 1.96 K/mm3 (0.9-3.2); Lymphocytes Percent Auto 28.1 % (18.3-44.2); Mean Corpuscular HGB Conc 34.6 g/dl (32-36); Mean Corpuscular Hemoglobin 30.8 pg (26-34); Mean Corpuscular Volume 89.1 fl (80-100); Mean Platelet Volume 8.5 fl (7.4-10.4); Monocytes Absolute Auto 0.4 K/mm3 (0.1-0.6); Neutrophils Absolute Auto 4.5 K/mm3 (1.3-6.7); Neutrophils Percent Auto 64.5 % (45.5-73.1); Platelet Count Result 246 k/mm3 (150-375); Red Blood Count 4.41 M/mm3 (4.2-5.4); Red Cell Distribution Width 11.8 % (11.5-14.5)
--- NOTE | 2021-11-07 08:33 | ED.GENADULT ---
HPI - General Adult General Chief complaint: Chest Pain Stated complaint: chest pain Time Seen by Provider: 11/07/21 08:11 History of Present Illness HPI narrative: 36-year-old female presenting to the emergency department for evaluation of intermittent left-sided chest pain. Patient states the pain initially began yesterday while she was driving the car. She states that she had 2 brief episodes of left-sided sharp chest pain. Patient states the pain did resolve. Patient states this morning when she woke up she had recurrence of the intermittent left-sided chest pain again and the pain does radiate to her back. She states she also does have associated left arm pain. Patient states the chest pain was worsened with exertion. Patient reports back in May that she did have a small blocked blood vessel and was told that she had a heart attack. Patient did not receive any stents at that time. Patient denies any prior history of PE or DVT. Related Data Home Medications Medication Instructions Recorded Confirmed amlodipine 10 mg tablet 10 mg PO DAILY 01/22/19 05/18/21 levonorgestrel 20 mcg/24 hours (7 1 device intrauterine ONCE 01/22/19 05/18/21 yrs) 52 mg intrauterine device (Mirena) ergocalciferol (vitamin D2) 1,250 1,250 mcg PO WEEKLY 05/18/21 05/18/21 mcg (50,000 unit) capsule lisinopril 20 mg tablet 20 mg PO DAILY 05/18/21 05/18/21 tramadol 50 mg tablet 50 mg PO QID 05/18/21 05/18/21 Allergies Allergy/AdvReac Type Severity Reaction Status Date / Time amoxicillin [From Augmentin] Allergy Itching Verified 05/18/21 15:32 clavulanic acid Allergy Itching Verified 05/18/21 15:32 [From Augmentin] AMOXICILLIN TRIHYDRATE Allergy Mild Unknown Uncoded 05/18/21 15:32 POTASSIUM CLAVULANATE Allergy Mild Unknown Uncoded 05/18/21 15:32 Review of Systems Review of Systems: CONSTITUTIONAL: Denies fever, chills, or sweats. EYES: Denies visual changes, redness, or discharge. ENT: Denies rhinorrhea, congestion, sore throat, or otalgia. CARDIOVASCULAR: See HPI RESPIRATORY: Denies cough or dyspnea. GASTROINTESTINAL: Denies abdominal pain, nausea, vomiting, or diarrhea. GENITOURINARY: Denies dysuria or hematuria. SKIN: Denies rash or itching. MUSCULOSKELETAL: Denies back pain, joint pain, or myalgia. NEUROLOGIC: Denies headache, numbness, or weakness. [facility] Past Medical History Medical History Chronic back pain Hypertension NSTEMI (non-ST elevated myocardial infarction) (05/18/21) Psoriasis Psoriatic arthritis Surgical History Surgical History (Updated 05/18/21 @ 21:25 by Tamara Lazo PA-C) History of back surgery History of tonsillectomy Family History Family History Father Heart attack, Onset Age: 31 Three heart attacks Hx of CABG And valve surgery Sleep apnea Sibling Heart attack, Onset Age: 36 Grandparent Breast cancer COPD (chronic obstructive pulmonary disease) Mother Leukemia COPD (chronic obstructive pulmonary disease) Sleep apnea Psoriasis Social History Social History (Updated 05/18/21 @ 21:25 by Tamara Lazo PA-C) Social History: Works as a [employer]. Significant other is Bill. Two children ages 8 and 17 (as of 05/2021) Smoking packs per day: 0.5 Smoking cigarettes per day: 10.0 Years smoked: 15 Smoking pack-years: 7.50 Smoking status: Former smoker Tobacco type: cigarettes and e-cigarettes/vaping Alcohol intake: never Alcohol use details: SOCIAL Substance use: never Substance use type: does not use Spiritual care concerns: No Exam Narrative: APPEARANCE: Well appearing, no pain, no distress, well-nourished. HEAD: normocephalic, atraumatic. EYES: PERRLA/EOMI, conjunctivae clear. NOSE: Normal no drainage EARS:TMS clear with good light reflex. THROAT: Pharynx clear, no exudate. NECK: Supple. No adenopathy,
[2021-11-07 08:40] LABS: Alanine Aminotransferase 16 U/L (6-35); Albumin Level 4.1 g/dL (3.5-5.1); Alkaline Phosphatase 63 U/L (38-126); Anion Gap 16 mmol/L (8-16); Aspartate Amino Transferase 17 U/L (14-36); Bilirubin,Total 0.7 mg/dL (0.2-1.3); Blood Urea Nitrogen 7 mg/dL (7-17); Calcium 8.5 mg/dL (8.4-10.2); Carbon Dioxide 24 mmol/L (22-30); Chloride 99 mmol/L (98-107); Estimated CRCL calculation 129 ml/min; Estimated Glomerular Filt Rate > 60; Glucose 156 mg/dL (65-110); Lipase 144 U/L (23-300); Potassium 3.7 mmol/L (3.4-5.0); Sodium 139 mmol/L (137-145)
[2021-11-07 08:45] LABS: INR 1.1
[2021-11-07] MEDS: ASPIRIN 81 MG CHEWABLE TABLET 243 MG PO (08:48)
[2021-11-07 08:52] LABS: Troponin I < 0.012 ng/mL (0.000-0.034)
--- NOTE | 2021-11-07 08:53 | PC.NURSE ---
EDP Alexei notified of patient's blood pressure of 108/71, per EDP hold Nitro at this time.
[2021-11-07 08:55] LABS: D Dimer < 0.27 ug/mL (<0.48)
[2021-11-07 11:34] LABS: Troponin I < 0.012 ng/mL (0.000-0.034)
== END 2021-11-07 13:42 | disposition home or self-care (01) ==
PROVIDERS: Emergency Provider Emergency Medicine; PCP Family Medicine
DX: R07.89 Other chest pain (principal); I10 Essential (primary) hypertension; I25.2 Old myocardial infarction; I44.0 Atrioventricular block, first degree; L40.50 Arthropathic psoriasis, unspecified; L40.9 Psoriasis, unspecified; Z87.891 Personal history of nicotine dependence; Z79.02 Long term (current) use of antithrombotics/antiplatelets; Z79.82 Long term (current) use of aspirin
CPT/HCPCS: 36415; 71046; 80053; 83690; 84484; 85025; 85380; 85610; 85730; 93005; 99284; A9270

== ENCOUNTER 2022-11-08 06:45 | Observation (INO) | payer OTHER, SELFPAY ==
[2022-11-08] VITALS (36 sets, daily range): BP systolic 99–125; BP diastolic 56–91; PULSE 61–78; RESP 13–23; TEMP 35.2–37; O2SAT 92–100; BMI 29.9; BMI 32.8
--- NOTE | ~2022-11-08 | US_ITS ---
EXAMINATION: US right upper quadrant DATE: 11/09/2022 14:22 INDICATION: Right upper quadrant pain TECHNIQUE: Multiple grayscale and Doppler ultrasound images of the abdomen were obtained. COMPARISON: None available FINDINGS: The head and body of the pancreas are normal. The pancreatic tail is obscured by bowel gas. The liver demonstrates increased echogenicity, heterogenous echotexture, and decreased through trans mission. No surface nodularity. Normal hepatopetal flow in the main portal vein. The gallbladder is n ormal with no abnormal wall thickening, pericholecystic fluid or stones. The normal common bile duct measures 3 mm. There was no sonographic Lopez sign. IMPRESSION: 1. Normal sonographic study of the gallbladder. 2. Diffuse hepatic steatosis. Reviewed, dictated and finalized at location B.
--- NOTE | ~2022-11-08 | XR_ITS ---
EXAMINATION: XR chest 2V DATE: 11/08/2022 08:13 INDICATION: Left-sided chest pain TECHNIQUE: PA and lateral views of the chest are obtained. COMPARISON: 11/07/2021 FINDINGS: The lungs are free of acute opacities. No pleural effusion or pneumothorax. The cardiomedia stinal silhouette is normal. There is mild thoracic spondylosis. IMPRESSION: 1. No acute cardiopulmonary abnormality. Reviewed, dictated and finalized at location L.
--- NOTE | 2022-11-08 07:03 | ECG_ITS ---
Measurements Intervals [place] Rate: 71 P: 30 DC: 183 QRS: 6 QRSD: 94 T: 72 QT: 386 QTc: 421 Interpretive Statements SINUS RHYTHM LOW QRS VOLTAGE IN PRECORDIAL LEADS CONSIDER ANTERIOR INFARCT, AGE INDETERMINATE ABNORMAL ECG COMPARED TO ECG 11/07/2021 08:13:53 NO SIGNIFICANT CHANGES Electronically Signed On 11-08-2022 8:33:25 CDT by Addi Faust D.O.
--- NOTE | 2022-11-08 07:16 | PC.NURSE ---
Patient report received from MEGAN Silveira. All questions answered and care of patient assumed
--- NOTE | 2022-11-08 07:29 | ED.CHESTPAIN ---
HPI - Chest Pain General Chief Complaint: Chest Pain Stated Complaint: chest pain Time Seen by Provider: 11/08/22 07:29 Source: patient and family Mode of arrival: ambulatory Limitations: no limitations History of Present Illness HPI narrative: 37 years old white female came to the emergency room by private car complaining of sudden onset of severe left chest pain radiating to her left arm, sharp stabbing, started at 6:15 AM while ready to go to work, 9 out of 10. History of hypertension, hyperlipidemia, coronary stent 3 months ago at [facility] strong family history of coronary artery disease father had heart attack at age 30, her brother had a heart attack at age 35 Related Data Home Medications Medication Instructions Recorded Confirmed amlodipine 10 mg tablet 10 mg PO DAILY 01/22/19 05/18/21 levonorgestrel 21 mcg/24 hours (8 1 device intrauterine ONCE 01/22/19 05/18/21 yrs) 52 mg intrauterine device (Mirena) ergocalciferol (vitamin D2) 1,250 1,250 mcg PO WEEKLY 05/18/21 05/18/21 mcg (50,000 unit) capsule lisinopril 20 mg tablet 20 mg PO DAILY 05/18/21 05/18/21 tramadol 50 mg tablet 50 mg PO QID 05/18/21 05/18/21 Allergies Allergy/AdvReac Type Severity Reaction Status Date / Time amoxicillin [From Augmentin] Allergy Itching Verified 11/08/22 07:01 clavulanic acid Allergy Itching Verified 11/08/22 07:01 [From Augmentin] AMOXICILLIN TRIHYDRATE Allergy Mild Unknown Uncoded 11/08/22 07:01 POTASSIUM CLAVULANATE Allergy Mild Unknown Uncoded 11/08/22 07:01 Review of Systems Review of Systems: All systems reviewed & are unremarkable except as noted in HPI and below PMFSH Past Medical History Medical History Chronic back pain Hypertension NSTEMI (non-ST elevated myocardial infarction) (05/18/21) Psoriasis Psoriatic arthritis Surgical History Surgical History History of back surgery History of tonsillectomy Family History Family History Father Heart attack, Onset Age: 31 Three heart attacks Hx of CABG And valve surgery Sleep apnea Sibling Heart attack, Onset Age: 36 Grandparent Breast cancer COPD (chronic obstructive pulmonary disease) Mother Leukemia COPD (chronic obstructive pulmonary disease) Sleep apnea Psoriasis Social History Social History Social History: 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 Significant other is Bill. Two children ages 8 and 17 (as of 05/2021) Smoking packs per day: 0.5 Smoking cigarettes per day: 10.0 Years smoked: 15 Smoking pack-years: 7.50 Smoking status: Former smoker Tobacco type: cigarettes and e-cigarettes/vaping Alcohol intake: never Alcohol use details: SOCIAL Substance use: never Substance use type: does not use Living arrangements: with family Occupation/Education: occupation Spiritual care concerns: No Exam Narrative: General appearance: Well-developed, well-nourished Skin: Normal color Head: Normocephalic, nontraumatic Eyes: Clear conjunctiva ENT: Oropharynx normal, ears normal, nose normal Neck: Supple, nontender Chest and respiratory: Airway patent, no respiratory distress, no accessory muscle use Heart: Regular rate/rhythm Abdomen: Soft, nontender, no organomegaly, quiet bowel sounds Vascular: Normal peripheral pulses, normal capillary refill. Musculoskeletal: Normal range of motion, nontender back Neurologic: Alert and oriented ?3, [employer] is normal as tested, no gross motor deficit Course Reevaluation(s) Reev
[2022-11-08 07:42] LABS: Basophils Percent Auto 0.5 % (0.2-1.2); Eosinophils Absolute Auto 0.1 K/mm3 (0-0.3); Eosinophils Percent Auto 1.1 % (0-4.4); Hemoglobin 14.1 g/dL (12.0-15.0); Immature Granulocyte Absolute 0.02 K/mm3 (0.00-0.031); Immature Granulocyte Percent A 0.3 % (0-0.5); Lymphocytes Absolute Auto 1.52 K/mm3 (0.9-3.2); Lymphocytes Percent Auto 23.5 % (18.3-44.2); Mean Corpuscular HGB Conc 34.4 g/dl (32-36); Mean Corpuscular Volume 87.2 fl (80-100); Mean Platelet Volume 8.7 fl (7.4-10.4); Monocytes Absolute Auto 0.4 K/mm3 (0.1-0.6); Monocytes Percent Auto 5.4 % (2.6-8.5); Neutrophils Absolute Auto 4.5 K/mm3 (1.3-6.7); Neutrophils Percent Auto 69.2 % (45.5-73.1); Platelet Count Result 238 k/mm3 (150-375); Red Cell Distribution Width 11.7 % (11.5-14.5); White Blood Count 6.5 K/mm3 (4.5-10.0)
[2022-11-08 07:50] LABS: Partial Thromboplastin Time 23.9 SECONDS (22.3-36.8)
[2022-11-08 07:51] LABS: INR 1.1; Prothrombin Time 14.5 Seconds (11.1-14.7)
[2022-11-08 07:54] LABS: Alanine Aminotransferase 28 U/L (6-35); Albumin Level 4.2 g/dL (3.5-5.1); Alkaline Phosphatase 75 U/L (38-126); Anion Gap 13 mmol/L (8-16); Aspartate Amino Transferase 28 U/L (14-36); Blood Urea Nitrogen 10 mg/dL (7-17); Carbon Dioxide 25 mmol/L (22-30); Chloride 102 mmol/L (98-107); Estimated CRCL calculation 112 ml/min; Estimated Glomerular Filt Rate > 60; Glucose 185 mg/dL (65-110); Lipase 154 U/L (23-300); Potassium 3.6 mmol/L (3.4-5.0); Sodium 140 mmol/L (137-145)
[2022-11-08 08:05] LABS: Troponin I < 0.012 ng/mL (0.000-0.034)
[2022-11-08 11:09] LABS: Troponin I < 0.012 ng/mL (0.000-0.034)
--- NOTE | 2022-11-08 11:28 | ADMGEN ---
This patient, Antonia Kraft, was admitted to IMU Room 211-01 on 11/08/22 at 1015. Patient/family oriented to hospital policies and general routines including ID bracelet, bed and alarms, visiting hours, pain management, procedures, bathroom and other care routines, personal items, smoking policy, room service/diet, and visiting hours. Information on how to activate the Rapid Response Team has been discussed. Patient/Family are encouraged to report perceived risks to care and to ask questions if they do not understand what they are told or what they should do.
--- NOTE | 2022-11-08 13:34 | PM.CNCAR ---
Assessment and Plan Assessment and plan (1) Chest pain: Qualifiers: Chest pain type: precordial pain Qualified Code(s): R07.2 - Precordial pain Code(s): R07.9 - Chest pain, unspecified Status: Acute Assessment and Plan: Occurrence of left sided chest pain this morning while getting ready for work. Chest pain resolved spontaneously after about 30 minutes. She has been ruled out for [place] with negative troponin levels thus far and EKG without any acute ischemic changes. Her chest pain is atypical, however, given her history will conduct ischemic workup with a stress echo tomorrow. Given that she underwent a coronary angiogram and PCI 3 months ago with a good result and has no evidence of stent thrombosis/stenosis, there is no indication for repeat angiography at this time. History of Present Illness History of Present Illness Consult date/time: 11/08/22 13:34 Requesting physician: Terrell Jovel MD Consult reason: chest pain Reason For Visit: Chest Pain Narrative: Antonia Kraft is a 37 year old female with dyslipidemia and premature coronary artery disease s/p PCI to the proximal LAD in August 2022 at [place]. She had previously undergone coronary angiogram at [facility] in May of 2021 and was found to have 90% stenosis of a small diagonal branch to the LAD which was treated medically. This is a patient who comes to the hospital with a chief complaint of chest pain. She was getting ready for work this morning when she experienced a sudden onset of sharp, stabbing left sided chest pain that radiated to her left arm. She was taken to the emergency department by her boyfriend and her chest pain subsided right when she arrived to the hospital. She states the pain lasted for about 30 minutes total. She has not had any recurrent pain since her initial episode this morning. She currently has no complaints and is lying comfortably in bed. Review of Systems Review of Systems: All systems reviewed & are unremarkable except as noted in HPI and below PMFSH Past Medical History Medical History CAD (coronary artery disease) Chronic back pain HLD (hyperlipidemia) Hypertension NSTEMI (non-ST elevated myocardial infarction) (05/18/21) Psoriasis Psoriatic arthritis Surgical History Surgical History History of back surgery L5/S1 History of tonsillectomy Family History Family History Father Heart attack, Onset Age: 31 Three heart attacks Hx of CABG And valve surgery Sleep apnea Psoriasis Sibling Heart attack, Onset Age: 35 Grandparent Breast cancer COPD (chronic obstructive pulmonary disease) Mother Leukemia COPD (chronic obstructive pulmonary disease) Sleep apnea Psoriasis Social History Social History Social History: Currently works as a [employer]. Lives at home with boyfriend and two children. Smoking packs per day: 1 Smoking cigarettes per day: 20.0 Years smoked: 15 Smoking pack-years: 15.00 Smoking status: Former smoker Tobacco type: cigarettes Additional smoking assessment comments: Cessation 4 Yrs Ago (as of 11/08/22) Alcohol intake: current Alcohol use details: occasional, could not identify last time she drank (11/2022) Substance use: never Substance use type: does not use Lack of Transportation: No Lack of Food: Never True Current Housing: I Have Housing Concerned About Future Housing: No Difficulty Paying Gas/Electric Bills: No Difficulty Paying for Meds: No Currently Unemployed: No Education: High School Diploma/GED Difficulty w/ Childcare or Family Care: No Living arrangements: with family Occupation/Education: occupation Spiritual care concerns: No Meds Home Medications and Allerg
--- NOTE | 2022-11-08 14:02 | PM.IMHP ---
H&P: HPI History of Present Illness Date/Time: 11/08/22 14:02 Chief Complaint: Chest Pain Narrative: 37 y/o F with PMH of CAD w/recent stent placement (3 months ago - [facility]), HTN, HLD, psoriasis, and psoratic arthritis presents here with chest pain. Pertinent FH: early heart disease, father had NH at 30 and brother had NH at 35. Patient presented to the ED early this morning after experiencing an episode of left sided chest pain with radiation down left arm at 0615 this morning. Patient was getting ready for work when the pain began. Pain was described at constant, burning/ache with intermittent stabbing/sharp pain. Pain did not radiate into patient's back. She denied palpitations, SOB, epigastric pain, diaphoresis, syncope/lightheadedness, or nausea. Pain resolved without intervention, no home meds taken. No alleviating/aggravating factors noted by patient. Patient denies chest pain since episode this morning. Review of Systems Review of Systems: All systems reviewed & are unremarkable except as noted in HPI and below PMFSH Past Medical History Medical History CAD (coronary artery disease) Chronic back pain HLD (hyperlipidemia) Hypertension NSTEMI (non-ST elevated myocardial infarction) (05/18/21) Psoriasis Psoriatic arthritis Surgical History Surgical History History of back surgery L5/S1 History of tonsillectomy Family History Family History Father Heart attack, Onset Age: 31 Three heart attacks Hx of CABG And valve surgery Sleep apnea Psoriasis Sibling Heart attack, Onset Age: 35 Grandparent Breast cancer COPD (chronic obstructive pulmonary disease) Mother Leukemia COPD (chronic obstructive pulmonary disease) Sleep apnea Psoriasis Social History Social History Social History: 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 Lives at home with boyfriend and two children. Smoking packs per day: 1 Smoking cigarettes per day: 20.0 Years smoked: 15 Smoking pack-years: 15.00 Smoking status: Former smoker Tobacco type: cigarettes Additional smoking assessment comments: Cessation 4 Yrs Ago (as of 11/08/22) Alcohol intake: current Alcohol use details: occasional, could not identify last time she drank (11/2022) Substance use: never Substance use type: does not use Lack of Transportation: No Lack of Food: Never True Current Housing: I Have Housing Concerned About Future Housing: No Difficulty Paying Gas/Electric Bills: No Difficulty Paying for Meds: No Currently Unemployed: No Education: High School Diploma/GED Difficulty w/ Childcare or Family Care: No Living arrangements: with family Occupation/Education: occupation Spiritual care concerns: No Meds Home Medications and Allergies Home Medications Medication Instructions Recorded Confirmed Type amlodipine 10 mg tablet 10 mg PO DAILY 01/22/19 11/08/22 History levonorgestrel 21 mcg/24 hours (8 1 device intrauterine ONCE 01/22/19 11/08/22 History yrs) 52 mg intrauterine device (Mirena) lisinopril 20 mg tablet 20 mg PO DAILY 05/18/21 11/08/22 History tramadol 50 mg tablet 100 mg PO USEASDIRECTD 05/18/21 11/08/22 History aspirin 81 mg capsule 81 mg PO DAILY #30 caps 05/19/21 11/08/22 Rx clopidogrel 75 mg tablet 75 mg PO DAILY #30 tabs 05/20/21 11/08/22 Rx atorvastatin 40 mg tablet 80 mg PO DAILY 11/08/22 11/08/22 History bupropion HCl 150 mg 24 hr tablet, 150 mg PO DAILY 11/08/22 11/08/22 History extended release metoprolol succinate 50 mg 25 mg PO QAM 11/08/22 11/08/22 History tablet,extended release 24 hr Allergies Allergy/AdvReac Type Severity Reaction Status Date / Time amoxicillin [From Augmentin] Allergy Itching Verified 11/08/22 07:01 clavulanic acid A
[2022-11-08 14:35] LABS: Troponin I < 0.012 ng/mL (0.000-0.034)
--- NOTE | 2022-11-08 16:42 | PC.NURSE ---
On 11/08/22, the student, Lizzeth RUSH [facility], provided care and completed [facility] documentation on this patient. I have reviewed the student's documentation and agree with the findings.
[2022-11-08 18:15] LABS: Hemoglobin A1C 6.4 % (<5.7)
[2022-11-08] MEDS: PANTOPRAZOLE 40 MG TABLET PO (20:35)
[2022-11-08] MEDS: traMADol HCL (*CRX) 50 MG TABLET 100 MG PO (21:53)
[2022-11-09] VITALS (12 sets, daily range): BP systolic 104–122; BP diastolic 63–74; PULSE 55–95; RESP 16–18; TEMP 36.4–37.1; O2SAT 96–98
--- NOTE | 2022-11-09 | EST_ITS ---
Patient Info Name: Antonia Kraft Age: 37 years : 1985 Gender: Female Ht: 65 in Wt: 203 lbs BSA: 2.09 m2 HR: 74 bpm BP: 113 / 79 mmHg Heart Rhythm: Sinus Rhythm Exam Date: 11/09/2022 11:04 AM Exam Location: [facility] Patient Status: Inpatient Admit Date: 11/08/2022 Staff Ordering Physician: [facility] Nurse Liaison: Ally Ureña RDCS Attending Provider: agnieszka smith np Referring Physician: Sarah ZHENG; Exercise Technologist: Ally Ureña RDCS Nurse: Arcelia Smith APN Exercise Physician: Bari Bonilla MD Exam Type: CA stress echo Study Info Indications R07.9 - Chest pain, unspecified Treadmill exercise stress echocardiogram is performed. Summary 1. Normal left ventricular systolic function with no regional wall motion abnormalities noted at rest and EF 60%. 2. Overall global left ventricular systolic function hyperdynamic post stress without regional wall motion abnormalities. 3. Maximal treadmill ECG stress test achieving 87% of age predicted maximum heart rate and 10.1 Mets at peak exercise. 4. Patient exercised 8 minutes and 12 seconds on Flynn protocol demonstrating fair exercise capacity for age. 5. Nondiagnostic ECG changes which did not meet strict criteria for reversible myocardial ischemia. 6. No arrhythmias were observed during the examination. 7. Overall, normal treadmill stress echocardiogram without evidence of ECG or echocardiographic evidence for ischemia. Recommendations * Stress supervising physician: Bari Bonilla MD. Stress Echo Findings Left Ventricle Normal left ventricular systolic function with no regional wall motion abnormalities noted at rest and EF 60%. Overall global left ventricular systolic function hyperdynamic post stress without regional wall motion abnormalities. Protocol: Flynn Stress ECG Details Stage: REST Duration (min): 1 min : 3 sec Speed (mph): 0.0 Grade (%): 0 HR (bpm): 74 SBP (mmHg): 113 DBP (mmHg): 79 METS: --- Stage: REST Duration (min): 10 min : 23 sec Speed (mph): 0.0 Grade (%): 0 HR (bpm): 81 SBP (mmHg): 113 DBP (mmHg): 79 METS: --- Stage: STAGE 1 Duration (min): 1 min : 0 sec Speed (mph): 1.7 Grade (%): 10 HR (bpm): 97 SBP (mmHg): 113 DBP (mmHg): 79 METS: --- Stage: STAGE 1 Duration (min): 2 min : 0 sec Speed (mph): 1.7 Grade (%): 10 HR (bpm): 106 SBP (mmHg): 113 DBP (mmHg): 79 METS: --- Stage: STAGE 1 Duration (min): 3 min : 0 sec Speed (mph): 1.7 Grade (%): 10 HR (bpm): 114 SBP (mmHg): 130 DBP (mmHg): 72 METS: --- Stage: STAGE 2 Duration (min): 1 min : 0 sec Speed (mph): 2.5 Grade (%): 12 HR (bpm): 121 SBP (mmHg): 130 DBP (mmHg): 72 METS: --- Stage: STAGE 2 Duration (min): 2 min : 0 sec Speed (mph): 2.5 Grade (%): 12 HR (bpm): 125 SBP (mmHg): 143 DBP (mmHg): 75 METS: --- Stage: STAGE 2 Duration (min): 3 min : 0 sec Speed (mph): 2.5 Grade (%): 12 HR (bpm): 136 SBP (mmHg): 143 DBP (mmHg): 75 METS: --- Stage: STAGE 3 Duration (min): 1 min : 0 sec Speed (mph): 3.4 Grade (%): 14
[2022-11-09] MEDS: traMADol HCL (*CRX) 50 MG TABLET 100 MG PO (08:05)
[2022-11-09] MEDS: buPROPion HCL XL (24 HR) 150 MG TABCR PO (08:05)
[2022-11-09] MEDS: amLODIPine BESYLATE 5 MG TABLET 10 MG PO (08:05)
[2022-11-09] MEDS: lisinopriL 20 MG TABLET PO (08:05)
[2022-11-09] MEDS: CLOPIDOGREL BISULFATE 75 MG TABLET PO (08:06)
[2022-11-09] MEDS: METOPROLOL SUCCINATE EXT REL 25 MG TABCR PO (08:06)
[2022-11-09] MEDS: PANTOPRAZOLE 40 MG TABLET PO (08:06)
[2022-11-09] MEDS: ATORVASTATIN 40 MG TABLET 80 MG PO (08:06)
[2022-11-09] MEDS: ASPIRIN 81 MG ENTERIC TABLET PO (08:06)
--- NOTE | 2022-11-09 09:02 | PM.IMPN ---
Progress Note: A&P Assessment and Plan (1) Chest pain: Qualifiers: Chest pain type: precordial pain Qualified Code(s): R07.2 - Precordial pain Code(s): R07.9 - Chest pain, unspecified Status: Acute Assessment and Plan: Recent cardiac stent placement 3 months ago. Strong FH of early heart disease (ID @28 and 33). Described chest pain as worse than previous chest discomfort leading up to her stent placement. Discomfort was described as constant/achy with intermittent stabbing sensation, lasting 30 minutes. -given 324 of ASA this AM, continue home ASA 81 mg -Cardiology consulted - MD Chad. CHRISTIE Smith has seen patient. NPO at bednight Stress Echo in AM, no repeat angiogram recommended -Trop x3 negative -continue clopidogrel -Zofran PRN for nausea -TYL PRN for pain Plan Chronic Conditions -Psoriasis:no home medications listed, triamcinolone cream ordered PRN for skin irritation/discomfort. -HLD:continue home atorvastatin. Last lipid panel on file 05/18/21: triglycerides 132, cholesterol 209, LDL 141, HDL 38. -HTN:continue home amlodipine, lisinopril, metoprolol. Last BP 107/66. Continue to monitor. -Depression: continue Wellbutrin XR. -Chronic Low Back Pain: continue Tramadol BID. Blood glucose elevated in ED 185, 156. A1C ordered - 6.4, consistent with pre-diabetes. Recommend follow-up with PCP to reassess A1C. Diet: Heart Healthy DVT Prophylaxis: SCDs, on Plavix GI Prophylaxis: Pantoprazole 40 mg PO Code Status: Full Code. Subjective Date/time seen: 11/09/22 09:02 Interval history: No overnight events noted. No chest pain or shortness of breath. No nausea, vomiting or diarrhea. No fevers or chills. Review of Systems Review of Systems: 12 point review of systems was assessed and was negative except as noted in the HPI Exam Narrative: General: No acute distress, alert and oriented per baseline HEENT: Atraumatic, normocephalic, mucous membranes moist CV: Regular rate and rhythm, S1, S2 Lungs: Clear to auscultation bilaterally, no rales or crackles noted, no wheezes, good air entry Abdomen: Soft, nontender, nondistended Extremities: Normal to inspection Skin: No rashes noted, no lesions or wounds seen Psych: Euthymic, normal affect Objective Data Vital Signs Vital Signs: Vital Signs - 24 hr 11/08/22 09:05 11/08/22 09:15 11/08/22 09:16 Temperature Pulse Rate 61 68 67 Respiratory Rate 20 13 Blood Pressure 114/83 Pulse Oximetry 100 99 99 Oxygen Delivery 11/08/22 09:30 11/08/22 09:31 11/08/22 09:32 Temperature Pulse Rate 66 65 72 Respiratory Rate 13 14 19 Blood Pressure 110/78 Pulse Oximetry 100 99 99 Oxygen Delivery 11/08/22 09:45 11/08/22 09:46 11/08/22 10:00 Temperature Pulse Rate 65 68 62 Respiratory Rate 19 18 16 Blood Pressure 102/57 L Pulse Oximetry 99 98 100 Oxygen Delivery 11/08/22 10:01 11/08/22 10:15 11/08/22 11:52 Temperature 98.6 F 95.3 F L Pulse Rate 64 63 63 Respiratory Rate 18 16 18 Blood Pressure 122/64 99/56 L 107/66 Pulse Oximetry 99 99 99 Oxygen Delivery 11/08/22 10:15 11/08/22 12:00 11/08/22 14:00 Temperature 98.4 F Pulse Rate Respiratory Rate Blood Pressure Pulse Oximetry Oxygen Delivery Room Air Room Air 11/08/22 16:00 11/08/22 12:00 11/08/22 14:00 Temperature 98.4 F Pulse Rate 65 64 68 Respiratory Rate 18 Blood Pressure 110/60 Pulse Oximetry 92 Oxygen Delivery 11/08/22 16:00 11/08/22 18:00 11/08/22 10:23 Temperature Pulse Rate 75 77 69 Respiratory Rate Blood Pressure Pulse Oximetry Oxygen Delivery 11/08/22 16:00 11/08/22 20:00 11/08/22 20:00 Temperature 97.7 F Pulse Rate 76 76 Respiratory Rate 16 16 Blood Pressure 115/66 Pulse Oximetry 97 97 Oxygen Delivery Room Air Room Air 11/08/22 20:00 11/08/22 22:00 11/08/22 23:55 Temperature 97.4 F L Pulse Rate 78 70 77 Respiratory Rate
--- NOTE | 2022-11-09 11:08 | PC.NURSE ---
Patient off floor to stress test.
--- NOTE | 2022-11-09 11:42 | PM.PNCARD ---
Progress Note: A&P Assessment and Plan (1) Chest pain: Qualifiers: Chest pain type: precordial pain Qualified Code(s): R07.2 - Precordial pain <MARLYS Woo - Last Filed: 11/09/22 12:02> Code(s): R07.9 - Chest pain, unspecified <MARLYS Woo - Last Filed: 11/09/22 12:02> Status: Acute <MARLYS Woo - Last Filed: 11/09/22 12:02> Assessment and Plan: Occurrence of left sided chest pain yesterday morning while getting ready for work. Chest pain resolved spontaneously after about 30 minutes. She has been ruled out for [place] with negative troponin levels thus far and EKG without any acute ischemic changes. Underwent stress echo earlier this morning. Will follow up with results when available. <MARLYS Woo - Last Filed: 11/09/22 12:02> Assessment and Plan: Attending addendum: I agree with the above documentation plan of care as outlined. Patient has a history CAD with prior intervention better with chest pain ruled out for myocardial infarction. She underwent treadmill stress echocardiogram which was unremarkable for ischemia by ECG and or echocardiogram. Normal LV function. From a cardiac perspective patient stable for discharge home to follow-up manager produce outpatient. Continue aggressive atherosclerotic risk reduction with aspirin, statin and clopidogrel. Continue Toprol XL and lisinopril. <Bari Bonilla MD - Last Filed: 11/09/22 14:30> Subjective Date/time seen: 11/09/22 11:42 <MARLYS Woo - Last Filed: 11/09/22 12:02> Interval history: Cardiology follow up for chest pain Feeling well today. Denies any recurrent chest pain. <MARLYS Woo - Last Filed: 11/09/22 12:02> Review of Systems Review of Systems: All systems reviewed & are unremarkable except as noted in HPI and below <MARLYS Woo - Last Filed: 11/09/22 12:02> Exam Const: General: comfortable, no acute distress, alert and awake <MARLYS Woo Last Filed: 11/09/22 12:02> Orientation/consciousness: patient oriented x3 <MARLYS Woo - Last Filed: 11/09/22 12:02> HENMT: Head: normal to inspection <MARLYS Woo - Last Filed: 11/09/22 12:02> Eyes: General: appearance normal, both eyes and all related structures <CARMELITA WooC - Last Filed: 11/09/22 12:02> Pupils: Equal, round and reactive pupils present <CARMELITA WooC - Last Filed: 11/09/22 12:02> Neck: Neck: normal visual inspection, supple and no JVD <CARMELITA Woo - Last Filed: 11/09/22 12:02> Carotids: normal carotid upstroke and no bruits <MARLYS Woo - Last Filed: 11/09/22 12:02> Resp: Effort & Inspection: normal respiratory effort <CARMELITA Woo - Last Filed: 11/09/22 12:02> Auscultation: clear to auscultation bilaterally <MARLYS Woo - Last Filed: 11/09/22 12:02> Cardio: Rate: regular rate <MARLYS Woo - Last Filed: 11/09/22 12:02> Rhythm: regular rhythm <MARLYS Woo - Last Filed: 11/09/22 12:02> Heart sounds: S1 normal heart sound present, S2 normal heart sound present and no murmurs <MARLYS Woo - Last Filed: 11/09/22 12:02> GI: Auscultation: normal bowel sounds <MARLYS Woo - Last Filed: 11/09/22 12:02> Skin: General skin exam: normal color <MARLYS Woo - Last Filed: 11/09/22 12:02> Neuro: General: patient oriented x3 <MARLYS Woo - Last Filed: 11/09/22 12:02> Cranial nerves: Yes Equal, round and reactive pupils present <MARLYS Woo - Last Filed: 11/09/22 12:02> Extrem: General: normal to inspection <MARLYS Woo - Last Filed: 11/09/22 12:02> Psych: Appearance: grossly normal <MARLYS Woo - Last Filed: 11/09/22 12:02> Mental Status: mental status grossly normal <MARLYS Woo - Last Filed: 11/09/22 12:02> Objective Data Vital Signs Vital Signs: Vital
--- NOTE | 2022-11-09 11:46 | PC.NURSE ---
Back to the floor.
--- NOTE | 2022-11-10 09:42 | PM.DS ---
DS: Admitting Diagnosis Discharge Date 11/09/22 Admitting Diagnosis Chest pain DS: Discharge Diagnosis Discharge Diagnosis (1) Chest pain: Qualifiers: Chest pain type: precordial pain Qualified Code(s): R07.2 - Precordial pain Code(s): R07.9 - Chest pain, unspecified Status: Acute Assessment and Plan: Recent cardiac stent placement 3 months ago. Strong FH of early heart disease (MS @28 and 33). Described chest pain as worse than previous chest discomfort leading up to her stent placement. Discomfort was described as constant/achy with intermittent stabbing sensation, lasting 30 minutes. -given 324 of ASA this AM, continue home ASA 81 mg -Cardiology consulted - MD Chad. CHRISTIE Smith has seen patient. NPO at bednight Stress Echo in AM, no repeat angiogram recommended -Trop x3 negative -continue clopidogrel -Zofran PRN for nausea -TYL PRN for pain Plan Chronic Conditions -Psoriasis:no home medications listed, triamcinolone cream ordered PRN for skin irritation/discomfort. -HLD:continue home atorvastatin. Last lipid panel on file 05/18/21: triglycerides 132, cholesterol 209, LDL 141, HDL 38. -HTN:continue home amlodipine, lisinopril, metoprolol. Last BP 107/66. Continue to monitor. -Depression: continue Wellbutrin XR. -Chronic Low Back Pain: continue Tramadol BID. Blood glucose elevated in ED 185, 156. A1C ordered - 6.4, consistent with pre-diabetes. Recommend follow-up with PCP to reassess A1C. Diet: Heart Healthy DVT Prophylaxis: SCDs, on Plavix GI Prophylaxis: Pantoprazole 40 mg PO Code Status: Full Code. DS: Summary Hospital Course Hospital Course: 37 y/o F with PMH of CAD w/recent stent placement (3 months ago - [facility]), HTN, HLD, psoriasis, and psoratic arthritis presents here with chest pain. Pertinent FH: early heart disease, father had MS at 30 and brother had MS at 35. Occurrence of left sided chest pain yesterday morning while getting ready for work.? Chest pain resolved spontaneously after about 30 minutes.? She has been ruled out for [place] with negative troponin levels thus far and EKG without any acute ischemic changes.? Underwent stress echo earlier this morning. Stress testing came back negative. Right upper quadrant ultrasound for gallbladder pathology was mildly abnormal. Patient was stable, all symptoms resolved. She was discharged with close outpatient follow-up for further gallbladder pathology. Please see above and [facility] rec for details. Time Spent with Patient Time attestation: Total time spent providing and/or coordinating discharge services: Exam Narrative: General: No acute distress, alert and oriented per baseline HEENT: Atraumatic, normocephalic, mucous membranes moist CV: Regular rate and rhythm, S1, S2 Lungs: Clear to auscultation bilaterally, no rales or crackles noted, no wheezes, good air entry Abdomen: Soft, nontender, nondistended Extremities: Normal to inspection Skin: No rashes noted, no lesions or wounds seen Psych: Euthymic, normal affect Discharge Plan Discharge Attending physician on discharge: Marybeth Avelar Consulting providers: Bari Bonilla Discharging Clinician: Mraybeth Avelar Patient Disposition: Home, Self-Care Activity: as tolerated Diet: as tolerated Discharge Instructions: Please follow up with primary care provider regarding your ultrasound results Patient Instructions: Antibiotic Form, Clopidogrel (By mouth) Stand Alone Forms: General Discharge Information Follow-up/Referrals: Bari Bonilla MD [Physician] - Onel,Foreign Howard MD [Primary Care Provider] - Discharge Medications: Continued amlodipine 10 mg tablet 10 mg PO DAILY Mirena 20 mcg/24 hours (5 yrs) 52 mg Intrauterine Device 1 device INTRAUTERINE ONCE lisinopril 20 mg tablet 20 mg PO DAILY tramadol 50 mg tablet 100 mg PO USEASDIRECTD Rx Instructions: twice per day: 6 AM
== END 2022-11-09 17:04 | disposition home or self-care (01) ==
LOC: ANHED 09:30 → ANHIMU 10:07
PROVIDERS: Student in an Organized Health Care Education/Training Program; Admitting Provider Internal Medicine; Emergency Provider Emergency Medicine; PCP Family Medicine; Visit Provider Student in an Organized Health Care Education/Training Program
DX: R07.2 Precordial pain (principal); I10 Essential (primary) hypertension; E78.5 Hyperlipidemia, unspecified; I25.10 Atherosclerotic heart disease of native coronary artery without angina pectoris; Z95.5 Presence of coronary angioplasty implant and graft; I44.0 Atrioventricular block, first degree; R94.31 Abnormal electrocardiogram [ECG] [EKG]; G89.29 Other chronic pain; M54.9 Dorsalgia, unspecified; Z97.5 Presence of (intrauterine) contraceptive device; K76.0 Fatty (change of) liver, not elsewhere classified; I25.2 Old myocardial infarction; L40.50 Arthropathic psoriasis, unspecified; L40.9 Psoriasis, unspecified; Z87.891 Personal history of nicotine dependence; Z79.02 Long term (current) use of antithrombotics/antiplatelets; Z79.82 Long term (current) use of aspirin; Z79.891 Long term (current) use of opiate analgesic; Z79.899 Other long term (current) drug therapy; Z82.49 Family history of ischemic heart disease and other diseases of the circulatory system; Z84.0 Family history of diseases of the skin and subcutaneous tissue
CPT/HCPCS: 36415; 71046; 76705; 80053; 83036; 83690; 84484; 85025; 85610; 85730; 93005; 93351; 99285; A9270; G0378

== ENCOUNTER 2022-12-26 08:13 | Inpatient (IN) | payer OTHER, SELFPAY ==
[2022-12-26] VITALS (15 sets, daily range): BP systolic 110–149; BP diastolic 66–87; PULSE 70–92; RESP 16–20; TEMP 35.9–37.3; O2SAT 92–100; BMI 30.6
--- NOTE | ~2022-12-26 | XR_ITS ---
Clinical Indication: Chest pain AP and lateral views of the chest: Comparison: 11/08/2022 Findings: The lungs are clear, without evidence of focal consolidation or pleural effusion. Cardiome diastinal silhouette is within normal limits. Bones and soft tissues are unremarkable. Impression: Normal chest. Reviewed, dictated and finalized at location . Impression: Normal chest.
--- NOTE | 2022-12-26 08:23 | ECG_ITS ---
Measurements Intervals [place] Rate: 84 P: 20 CT: 169 QRS: -4 QRSD: 93 T: 55 QT: 378 QTc: 449 Interpretive Statements SINUS RHYTHM NONSPECIFIC T-WAVE ABNORMALITY INTERPRETATION BASED ON A DEFAULT AGE OF 40 YEARS COMPARED TO ECG 11/08/2022 06:53:04 NO SIGNIFICANT CHANGE Electronically Signed On 12-26-2022 20:22:39 CDT by Kristy Zapata M.D.
[2022-12-26 08:58] LABS: Basophils Percent Auto 0.3 % (0.2-1.2); Eosinophils Absolute Auto 0.1 K/mm3 (0-0.3); Eosinophils Percent Auto 1.1 % (0-4.4); Hematocrit 43.4 % (37.0-47.0); Hemoglobin 14.9 g/dL (12.0-15.0); Immature Granulocyte Absolute 0.02 K/mm3 (0.00-0.031); Immature Granulocyte Percent A 0.3 % (0-0.5); Lymphocytes Absolute Auto 1.69 K/mm3 (0.9-3.2); Lymphocytes Percent Auto 24.2 % (18.3-44.2); Mean Corpuscular HGB Conc 34.3 g/dl (32-36); Mean Corpuscular Hemoglobin 29.7 pg (26-34); Mean Corpuscular Volume 86.5 fl (80-100); Mean Platelet Volume 8.7 fl (7.4-10.4); Monocytes Absolute Auto 0.4 K/mm3 (0.1-0.6); Monocytes Percent Auto 5.2 % (2.6-8.5); Neutrophils Absolute Auto 4.8 K/mm3 (1.3-6.7); Neutrophils Percent Auto 68.9 % (45.5-73.1); Platelet Count Result 225 k/mm3 (150-375); Red Blood Count 5.02 M/mm3 (4.2-5.4); Red Cell Distribution Width 12.1 % (11.5-14.5)
[2022-12-26] MEDS: ASPIRIN 81 MG CHEWABLE TABLET 324 MG PO (09:00)
[2022-12-26 09:13] LABS: Prothrombin Time 13.2 Seconds (11.1-14.7)
[2022-12-26 09:14] LABS: Partial Thromboplastin Time 24.4 SECONDS (22.3-36.8)
[2022-12-26 09:30] LABS: Alanine Aminotransferase 27 U/L (6-35); Albumin Level 4.4 g/dL (3.5-5.1); Alkaline Phosphatase 79 U/L (38-126); Anion Gap 9 mmol/L (8-16); Aspartate Amino Transferase 30 U/L (14-36); Blood Urea Nitrogen 8 mg/dL (7-17); Calcium 9.3 mg/dL (8.4-10.2); Carbon Dioxide 26 mmol/L (22-30); Chloride 102 mmol/L (98-107); Estimated CRCL calculation 132 ml/min; Estimated Glomerular Filt Rate > 60; Glucose 149 mg/dL (65-110); Lipase 91 U/L (23-300); Potassium 4.1 mmol/L (3.4-5.0); Sodium 137 mmol/L (137-145)
[2022-12-26 09:44] LABS: Troponin I 0.041 ng/mL (0.000-0.034)
--- NOTE | 2022-12-26 10:03 | ED.CHESTPAIN ---
HPI - Chest Pain General Chief Complaint: Chest Pain Stated Complaint: chest pains Time Seen by Provider: 12/26/22 08:24 History of Present Illness HPI narrative: 37F h/o CT s/p stents p/w CP since 1am woke her out of sleep; seems to go down L arm, currently pain has subsided but is quite concerned; last episode a few months ago had neg workup but is quite concerned. Extensive cardiac history with strong family history, former smoker. No recent stressors, no history of anxiety Related Data Home Medications Medication Instructions Recorded Confirmed amlodipine 10 mg tablet 10 mg PO DAILY 01/22/19 11/08/22 levonorgestrel 21 mcg/24 hours (8 1 device intrauterine ONCE 01/22/19 11/08/22 yrs) 52 mg intrauterine device (Mirena) lisinopril 20 mg tablet 20 mg PO DAILY 05/18/21 11/08/22 tramadol 50 mg tablet 100 mg PO USEASDIRECTD 05/18/21 11/08/22 atorvastatin 40 mg tablet 80 mg PO DAILY 11/08/22 11/08/22 bupropion HCl 150 mg 24 hr tablet, 150 mg PO DAILY 11/08/22 11/08/22 extended release metoprolol succinate 50 mg 25 mg PO QAM 11/08/22 11/08/22 tablet,extended release 24 hr Allergies Allergy/AdvReac Type Severity Reaction Status Date / Time amoxicillin [From Augmentin] Allergy Itching Verified 11/08/22 07:01 clavulanic acid Allergy Itching Verified 11/08/22 07:01 [From Augmentin] Review of Systems Review of Systems: CONST: No fever. HEENT: No sore throat C/V: chest pain RESP: No cough GI: No nausea or vomiting : No dysuria. M/S: No joint pain. SKIN: No rash. NEURO: [No headache or focal numbness or weakness] PSYCH: [No depression] [facility] Past Medical History Medical History CAD (coronary artery disease) Chronic back pain HLD (hyperlipidemia) Hypertension NSTEMI (non-ST elevated myocardial infarction) (05/18/21) Psoriasis Psoriatic arthritis Surgical History Surgical History History of back surgery L5/S1 History of tonsillectomy Family History Family History Father Heart attack, Onset Age: 31 Three heart attacks Hx of CABG And valve surgery Sleep apnea Psoriasis Sibling Heart attack, Onset Age: 35 Grandparent Breast cancer COPD (chronic obstructive pulmonary disease) Mother Leukemia COPD (chronic obstructive pulmonary disease) Sleep apnea Psoriasis Social History Social History Social History: Currently works as a [employer]. Lives at home with boyfriend and two children. Smoking packs per day: 1 Smoking cigarettes per day: 20.0 Years smoked: 15 Smoking pack-years: 15.00 Smoking status: Former smoker Tobacco type: cigarettes Additional smoking assessment comments: Cessation 4 Yrs Ago (as of 11/08/22) Alcohol intake: current Alcohol use details: occasional, could not identify last time she drank (11/2022) Substance use: never Substance use type: does not use Lack of Transportation: No Lack of Food: Never True Current Housing: I Have Housing Concerned About Future Housing: No Difficulty Paying Gas/Electric Bills: No Difficulty Paying for Meds: No Currently Unemployed: No Education: High School Diploma/GED Difficulty w/ Childcare or Family Care: No Living arrangements: with family Occupation/Education: occupation Spiritual care concerns: No Exam Narrative: EXAMINATION OF ORGAN SYSTEMS/BODY AREAS: Constitutional: Vital signs per nursing GENERAL:[No acute distress, non-toxic appearing.] HEAD: Normal with no signs of head trauma. EYES: EOMI, conjunctiva normal ENT: Hearing grossly intact LUNGS: Nonlabored breathing. HEART: [Regular rate and rhythm], normal pulses ABD: [Soft], [nontender to palpation] EXT: Normal range of motion SKIN: [No rashes or lesions.] NEURO: [Al
[2022-12-26 10:33] LABS: Basophils Percent Auto 0.5 % (0.2-1.2); Eosinophils Absolute Auto 0.1 K/mm3 (0-0.3); Eosinophils Percent Auto 1.2 % (0-4.4); Hemoglobin 14.6 g/dL (12.0-15.0); Immature Granulocyte Absolute 0.02 K/mm3 (0.00-0.031); Immature Granulocyte Percent A 0.3 % (0-0.5); Lymphocytes Absolute Auto 1.75 K/mm3 (0.9-3.2); Lymphocytes Percent Auto 22.7 % (18.3-44.2); Mean Corpuscular Hemoglobin 29.6 pg (26-34); Mean Corpuscular Volume 87.2 fl (80-100); Mean Platelet Volume 8.7 fl (7.4-10.4); Monocytes Absolute Auto 0.5 K/mm3 (0.1-0.6); Monocytes Percent Auto 6.3 % (2.6-8.5); Neutrophils Absolute Auto 5.3 K/mm3 (1.3-6.7); Platelet Count Result 242 k/mm3 (150-375); Red Blood Count 4.93 M/mm3 (4.2-5.4); Red Cell Distribution Width 12.2 % (11.5-14.5); White Blood Count 7.7 K/mm3 (4.5-10.0)
[2022-12-26 10:47] LABS: Prothrombin Time 13.3 Seconds (11.1-14.7)
[2022-12-26 10:48] LABS: Partial Thromboplastin Time 23.8 SECONDS (22.3-36.8)
[2022-12-26] MEDS: HEPARIN SODIUM 5,000 UNITS/ML VIAL 4000 UNITS IV PUSH ×2 (11:03→18:01)
[2022-12-26] MEDS: HEPARIN SOD/D5W 100 UNITS/ML 25,000 UNITS/250 ML BAG 9 UNITS IV CONT (11:03)
[2022-12-26 12:45] LABS: Troponin I 0.072 ng/mL (0.000-0.034)
--- NOTE | 2022-12-26 13:22 | PM.IMHP ---
H&P: HPI History of Present Illness Date/Time: 12/26/22 13:22 Chief Complaint: Chest Pain Narrative: 37 y/o F presents here with chest pain with past medical history of CAD with 1 stent placed, HTN, psoriasis/psoriatic arthritis. Patient presents here with left-sided chest pain that began around 1:00 a.m. patient reports that the pain radiated to her left shoulder, LUE, and neck. She describes the pain as intense, strong. Pain would increase when she would lay down and with ease when she sat upright. She did not take any medication for the pain at home. Due to continuation of pain and becoming more constant patient sought care in the ED around 8:00 a.m.. Given total of 324 of aspirin and heparin gtt initiated due patient history, risk factors, and concern for ACS. Patient currently reporting chest pain that she describes as dull. Pain remains in the left side without radiation. No associated nausea, vomiting, shortness of breath, palpitations. One brief episode of diaphoresis after admission. +MAHER. Patient was admitted for similar symptoms in November of this year. Troponins were negative during that admission and she had a negative echo/stress test. +Troponin today. Review of Systems Review of Systems: All systems reviewed & are unremarkable except as noted in HPI and below PMFSH Past Medical History Medical History CAD (coronary artery disease) Chronic back pain Family history of premature CAD HLD (hyperlipidemia) Hypertension NSTEMI (non-ST elevated myocardial infarction) (05/18/21) Pre-diabetes Psoriasis Psoriatic arthritis Surgical History Surgical History History of back surgery L5/S1 History of tonsillectomy Family History Family History Father Heart attack, Onset Age: 31 Three heart attacks Hx of CABG And valve surgery Sleep apnea Psoriasis Sibling Heart attack, Onset Age: 35 Grandparent Breast cancer COPD (chronic obstructive pulmonary disease) Mother Leukemia COPD (chronic obstructive pulmonary disease) Sleep apnea Psoriasis Social History Social History (Updated 12/26/22 @ 23:31 by Mercedes Ayala APRN) Social History: 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 Lives at home with her and 2 children. Surrogate decision maker: . Code status: Full code. Smoking packs per day: 1 Smoking cigarettes per day: 20.0 Years smoked: 15 Smoking pack-years: 15.00 Smoking status: Former smoker Tobacco type: cigarettes and e-cigarettes/vaping Additional smoking assessment comments: pt now vapes Alcohol intake: never Alcohol use details: occasional, could not identify last time she drank (11/2022) Substance use: never Substance use type: does not use Lack of Transportation: No Lack of Food: Never True Current Housing: I Have Housing Concerned About Future Housing: No Difficulty Paying Gas/Electric Bills: No Difficulty Paying for Meds: No Currently Unemployed: No Education: High School Diploma/GED Difficulty w/ Childcare or Family Care: No Living arrangements: with family Occupation/Education: occupation Spiritual care concerns: No Meds Home Medications and Allergies Home Medications Medication Instructions Recorded Confirmed Type amlodipine 10 mg tablet 10 mg PO DAILY 01/22/19 12/26/22 History levonorgestrel 21 mcg/24 hours (8 1 device intrauterine ONCE 01/22/19 12/26/22 History yrs) 52 mg intrauterine device (Mirena) lisinopril 20 mg tablet 20 mg PO DAILY 05/18/21 12/26/22 History tramadol 50 mg tablet 100 mg PO USEASDIRECTD 05/18/21 12/26/22 History aspirin 81 mg capsule 81 mg PO DAILY #30 caps 05/19/21 12/26/22 Rx clopidogrel 75 mg tablet 75 mg PO DAILY #30 tabs 05/20/21 12/26/22 Rx atorvastatin 40 mg tablet 80 mg PO DAILY 09
--- NOTE | 2022-12-26 14:18 | ADMGEN ---
This patient, Antonia Kraft, was admitted to IMU Room 210-01 on 12/26/22 at 1132. Patient/family oriented to hospital policies and general routines including ID bracelet, bed and alarms, visiting hours, pain management, procedures, bathroom and other care routines, personal items, smoking policy, room service/diet, and visiting hours. Information on how to activate the Rapid Response Team has been discussed. Patient/Family are encouraged to report perceived risks to care and to ask questions if they do not understand what they are told or what they should do.
[2022-12-26] MEDS: ACETAMINOPHEN 500 MG TABLET 1000 MG PO (15:01)
[2022-12-26] MEDS: PANTOPRAZOLE SODIUM IV 40 MG VIAL IV PUSH (15:04)
[2022-12-26 17:18] LABS: Partial Thromboplastin Time 31.6 SECONDS (22.3-36.8)
--- NOTE | 2022-12-26 17:37 | PM.CNCAR ---
Assessment and Plan Assessment and plan (1) NSTEMI (non-ST elevated myocardial infarction): Onset Date: 05/18/21 Code(s): I21.4 - Non-ST elevation (NSTEMI) myocardial infarction Status: Acute Assessment and Plan: Patient presents with chest discomfort and now has elevated troponins up to 0.10. No EKG changes. In view of her elevated troponins and known CAD I think she has ACS and a NSTEMI, which is a potentially life-threatening eent. We need to evaluate further with heart catheterization tomorrow. Discussed with patient, who agrees. --continue heparin, aspirin, statin --cardiac catheterization tomorrow --repeat EKG in the morning --urine test (2) CAD (coronary artery disease): Code(s): I25.10 - Atherosclerotic heart disease of [place] coronary artery without angina pectoris Status: Acute Assessment and Plan: Had non-STEMI 6 11/2021 in found to have a diagonal lesion treated medically. Unstable angina August 2021 and found to have a significant proximal Left anterior descending lesion which was stented Patient unfortunately continues to have problems with CAD despite medication compliance etc.. --add colchicine, which has been recently approved by the FDA to prevent cardiovascular events --check lipoprotein(a). High levels can predispose patients to cardiovascular events and is a genetically transmitted problem. There are medications in clinical trials that may be available in the next few years which can lower lipoprotein (a) and hopefully reduce cardiovascular events. (3) Hypertension: Qualifiers: Hypertension type: primary hypertension Qualified Code(s): I10 - Essential (primary) hypertension Code(s): I10 - Essential (primary) hypertension Status: Acute Assessment and Plan: Controlled. --continue amlodipine, lisinopril, metoprolol (4) Pre-diabetes: Code(s): R73.03 - Prediabetes Status: Acute Assessment and Plan: A1c was apparently elveated in November 2022. --continue with heart healthy diet and exercise (5) Psoriatic arthritis: Code(s): L40.50 - Arthropathic psoriasis, unspecified Status: Acute Assessment and Plan: Psoriatic arthritis is another risk factor for coronary disease because of its contribution to chronic inflammation. (6) Family history of premature CAD: Code(s): Z82.49 - Family history of ischemic heart disease and other diseases of the circulatory system Status: Acute Assessment and Plan: Strong family history of premature CAD History of Present Illness History of Present Illness Consult date/time: 12/26/22 17:37 Reason For Visit: nstemi Narrative: Antonia Kraft is a 37-year-old female whom I was asked to see at the request of Dr. Juju Lopez for my advice and opinion regarding her chest pain and elevated troponins in consultation. She has history of CAD, hypertension, tobacco/nicotine use, prediabetes. Strong family history of premature CAD. History of psoriatic arthritis. Ms. Kraft has a history of coronary disease. She presented to [facility] in May 2021 with chest discomfort and elevated troponin up to 3.3. Cardiac catheterization showed a 90% stenosis of the ostium of a small diagonal branch but preserved LV function and she was started on medical therapy. She returned to [facility] with accelerating chest pain in August 2022. Cardiac catheterization was performed revealing a tight stenosis of the proximal Left anterior descending and LULY grade 2 flow. (Of note, the guide was unable to be advanced to the radial artery and she ended up with a femoral approach. A stent was placed in the proximal Left anterior descending because the diagonal was jailed, this underwent balloon angioplasty. Echo 08/2022 showed ejection fraction of 63%. When she was last seen by her brasswind instrument repairer there, Dr. Stepan Shahid she was doing well. Antonia was
[2022-12-26] MEDS: traMADol HCL (*CRX) 50 MG TABLET 100 MG PO (18:02)
[2022-12-26] MEDS: ACETAMINOPHEN 325 MG TABLET 650 MG PO (20:24)
[2022-12-27] VITALS (22 sets, daily range): BP systolic 92–110; BP diastolic 56–70; PULSE 59–99; RESP 14–20; TEMP 35.8–36.4; O2SAT 95–100
[2022-12-27 00:53] LABS: Partial Thromboplastin Time 47.4 SECONDS (22.3-36.8)
[2022-12-27] MEDS: HEPARIN SODIUM 5,000 UNITS/ML VIAL 4000 UNITS IV PUSH (01:54)
[2022-12-27 04:20] LABS: Pregnancy On Board Control Positive; Urine Pregnancy Test Negative
--- NOTE | 2022-12-27 07:00 | ECG_ITS ---
Measurements Intervals [place] Rate: 64 P: 44 VT: 206 QRS: 20 QRSD: 104 T: 90 QT: 442 QTc: 458 Interpretive Statements SINUS RHYTHM NONSPECIFIC T-WAVE ABNORMALITY COMPARED TO ECG 12/26/2022 08:27:06 NO SIGNIFICANT CHANGES Electronically Signed On 12-27-2022 12:57:31 CDT by Kristy Zapata M.D.
[2022-12-27 08:06] LABS: Basophils Percent Auto 0.6 % (0.2-1.2); Eosinophils Absolute Auto 0.1 K/mm3 (0-0.3); Eosinophils Percent Auto 1.2 % (0-4.4); Hematocrit 42.5 % (37.0-47.0); Hemoglobin 14.4 g/dL (12.0-15.0); Immature Granulocyte Absolute 0.02 K/mm3 (0.00-0.031); Immature Granulocyte Percent A 0.3 % (0-0.5); Lymphocytes Absolute Auto 2.11 K/mm3 (0.9-3.2); Lymphocytes Percent Auto 32.1 % (18.3-44.2); Mean Corpuscular HGB Conc 33.9 g/dl (32-36); Mean Corpuscular Hemoglobin 29.7 pg (26-34); Mean Corpuscular Volume 87.6 fl (80-100); Mean Platelet Volume 8.7 fl (7.4-10.4); Monocytes Absolute Auto 0.4 K/mm3 (0.1-0.6); Monocytes Percent Auto 6.1 % (2.6-8.5); Neutrophils Absolute Auto 3.9 K/mm3 (1.3-6.7); Neutrophils Percent Auto 59.7 % (45.5-73.1); Platelet Count Result 235 k/mm3 (150-375); Red Blood Count 4.85 M/mm3 (4.2-5.4); Red Cell Distribution Width 12.2 % (11.5-14.5); White Blood Count 6.6 K/mm3 (4.5-10.0)
[2022-12-27 08:18] LABS: Cholesterol 141 mg/dL (0-200); HDL Direct 35 mg/dL; Triglycerides 137 mg/dL (<150)
[2022-12-27 08:19] LABS: Anion Gap 7 mmol/L (8-16); Blood Urea Nitrogen 9 mg/dL (7-17); Carbon Dioxide 27 mmol/L (22-30); Chloride 103 mmol/L (98-107); Estimated CRCL calculation 131 ml/min; Estimated Glomerular Filt Rate > 60; Glucose 141 mg/dL (65-110); Potassium 4.1 mmol/L (3.4-5.0); Sodium 137 mmol/L (137-145)
[2022-12-27] MEDS: SODIUM CHLORIDE 0.9% IV 500 ML 100 ML IV CONT (08:27)
[2022-12-27] MEDS: HEPARIN SOD/D5W 100 UNITS/ML 25,000 UNITS/250 ML BAG 15 UNITS IV CONT (08:28)
[2022-12-27 08:29] LABS: LDL Cholesterol Direct 82 mg/dL
[2022-12-27 08:41] LABS: Troponin I 0.042 ng/mL (0.000-0.034)
[2022-12-27 08:42] LABS: Partial Thromboplastin Time 79.5 SECONDS (22.3-36.8)
[2022-12-27] MEDS: ASPIRIN 81 MG ENTERIC TABLET PO (09:04)
[2022-12-27] MEDS: ATORVASTATIN 40 MG TABLET 80 MG PO (09:04)
[2022-12-27] MEDS: buPROPion HCL XL (24 HR) 150 MG TABCR 300 MG PO (09:04)
[2022-12-27] MEDS: CLOPIDOGREL BISULFATE 75 MG TABLET PO (09:05)
[2022-12-27] MEDS: COLCHICINE 0.6 MG TABLET PO (09:05)
[2022-12-27] MEDS: METOPROLOL SUCCINATE EXT REL 25 MG TABCR PO (09:05)
[2022-12-27] MEDS: PANTOPRAZOLE 40 MG TABLET PO (09:06)
--- NOTE | 2022-12-27 10:17 | P.HPUP_ITS ---
History and Physical Update Update Date/Time: 12/27/22 10:17 History of Left anterior descending stent. Admitted with chest pain and a non- STEMI,. History and Physical has been reviewed, including an updated exam of the patient. There are NO changes in the patient's condition. Risks, benefits, and alternatives have been discussed and questions answered. Patient agrees to proceed with procedure.
--- NOTE | 2022-12-27 10:18 | WPDMODSED ---
Moderate Sedation Note-Pt Data Patient Data Diagnosis: NSTEMI, history of Left anterior descending stent Present Complaint: 37-year-old female with a history of Left anterior descending stent placed in August 2022 at [facility], with involvement and angioplasty of the 1st diagonal. Admitted with chest pain and elevated troponins consistent with a non-STEMI. Cardiac catheterization is recommended for further evaluation. Procedure to be performed/Plan: Conscious sedation Left heart catheterization Possible PCI Allergies Allergy/AdvReac Type Severity Reaction Status Date / Time amoxicillin [From Augmentin] Allergy Itching Verified 11/08/22 07:01 clavulanic acid Allergy Itching Verified 11/08/22 07:01 [From Augmentin] Home Medications Medication Instructions Recorded Confirmed Type amlodipine 10 mg tablet 10 mg PO DAILY 01/22/19 12/26/22 History levonorgestrel 21 mcg/24 hours (8 1 device intrauterine ONCE 01/22/19 12/26/22 History yrs) 52 mg intrauterine device (Mirena) lisinopril 20 mg tablet 20 mg PO DAILY 05/18/21 12/26/22 History tramadol 50 mg tablet 100 mg PO USEASDIRECTD 05/18/21 12/26/22 History aspirin 81 mg capsule 81 mg PO DAILY #30 caps 05/19/21 12/26/22 Rx clopidogrel 75 mg tablet 75 mg PO DAILY #30 tabs 05/20/21 12/26/22 Rx atorvastatin 40 mg tablet 80 mg PO DAILY 11/08/22 12/26/22 History bupropion HCl 150 mg 24 hr tablet, 300 mg PO DAILY 11/08/22 12/26/22 History extended release metoprolol succinate 50 mg 25 mg PO QAM 11/08/22 12/26/22 History tablet,extended release 24 hr Current Medications: Active Medications Acetaminophen (Acetaminophen 325 Mg Tablet) 650 mg PO Q4H PRN PRN Reason: Headache Last Admin: 12/26/22 20:24 Dose: 650 mg Amlodipine Besylate (Amlodipine Besylate 5 Mg Tablet) 10 mg PO DAILY [facility] Last Admin: 12/27/22 08:54 Dose: Not Given Aspirin (Aspirin 81 Mg Enteric Tablet) 81 mg PO QAM [facility] Last Admin: 12/27/22 09:04 Dose: 81 mg Atorvastatin Calcium (Atorvastatin 40 Mg Tablet) 80 mg PO DAILY [facility] Last Admin: 12/27/22 09:04 Dose: 80 mg Bupropion HCl (Bupropion Hcl Xl (24 Hr) 150 Mg Tabcr) 300 mg PO DAILY [facility] Last Admin: 12/27/22 09:04 Dose: 300 mg Clopidogrel Bisulfate (Clopidogrel Bisulfate 75 Mg Tablet) 75 mg PO DAILY [facility] Last Admin: 12/27/22 09:05 Dose: 75 mg Colchicine (Colchicine 0.6 Mg Tablet) [facility] Last Admin: 12/27/22 09:05 Dose: 0.6 mg Heparin Sodium (Porcine) (Heparin Sodium 5,000 Units/Ml Vial) 4,000 units IV PUSH PRN PRN PRN Reason: aPTT less than 55 seconds Last Admin: 12/27/22 01:54 Dose: 4,000 units Heparin Sodium (Porcine) (Heparin Sodium 5,000 Units/Ml Vial) 3,000 units IV PUSH PRN PRN PRN Reason: aPTT 55 - 70 seconds Heparin Sodium/Dextrose (Heparin Sodium/D5w 100 Units/Ml) 25,000 units in 250 mls @ 15 mls/hr IV CONT .[id number] [facility]; Protocol Last Admin: 12/27/22 08:28 Dose: 1,500 units/hr, 15 mls/hr Sodium Chloride (Normal Saline Iv) 500 mls @ 100 mls/hr IV CONT .Q5H [facility] Last Admin: 12/27/22 08:27 Dose: 100 mls/hr Lisinopril (Lisinopril 20 Mg Tablet) 20 mg PO DAILY [facility] Last Admin: 12/27/22 08:55 Dose: Not Given Melatonin (Melatonin 3 Mg Tablet) 3 mg PO HS PRN PRN Reason: Insomnia Metoprolol Succinate (Metoprolol Succinate Ext Rel 25 Mg Tabcr) [facility] Last Admin: 12/27/22 09:05 Dose: 25 mg Nitroglycerin (Nitroglycerin Sl 0.4 Mg Tablet) 0.4 mg SUBLINGUAL Q5MIN PRN PRN Reason: Chest Pain Nitroglycerin (Nitroglycerin Sl 0.4 Mg Tablet) 0.4 mg SUBLINGUAL Q5MIN PRN PRN Reason: Chest Pain Tramadol HCl (Tramadol Hcl (*Crx) 50 Mg Tablet) 100 mg PO 0600,1700 [facility] Last Admin: 12/27/22 06:10 Dose: Not Given Sedation/Anesthesia: No previous sedation/anesthesia problems (including family history). PMFSH Past Medical History Medical History CAD (coronary artery disease) Chronic back pain Family his
[2022-12-27] MEDS: ACETAMINOPHEN 325 MG TABLET 650 MG PO (11:01)
[2022-12-27] MEDS: SODIUM CHLORIDE 0.9% IV 1,000 ML 125 ML IV CONT (12:25)
--- NOTE | 2022-12-27 12:30 | WPDCARDPROC ---
Cardiac Cath Procedure Note Date of procedure:: 12/27/22 Performing physician:: Kristy Zapata MD Indication:: NSTEMI, CAD Brief clinical history:: 37-year-old female with history of NSTEMI in November 2021 and found to have a stenosis of a small diagonal treated medically. Crescendo angina and August 2022 resulted in an Left anterior descending stent at [place] with angioplasty of the jailed diagonal. Patient returned with a small non-STEMI and is here for heart catheterization. Procedure Procedure performed:: Procedure: 1. Conscious sedation 2. Left heart catheterization 3. Selective Coronary angiography 4. Left ventriculography 5. Angiography of the right common femoral artery Sedation/Medication given:: Conscious sedation: The patient has no known prior history of adverse affects of conscious sedation. Oropharynx was clear. The patient is deemed a good candidate for conscious sedation. Conscious sedation began at: 1146 Conscious sedation ended at: 12 18 Total conscious sedation time: 32 minutes Medications: % 3 mg, fentanyl 100 mcg IV push The patient had continuous hemodynamic monitoring, and was also continuously monitored by: Satish Richey RN The patient tolerated conscious sedation well. Access site:: right femoral artery Estimated blood loss:: 15 cc Procedure note:: Site: Right femoral artery Catheters: 5 Cypriot arterial sheath, 5 Cypriot 4 cm right and left Santosh catheters, 5 Cypriot pigtail catheter Detailed procedure: After informed consent the patient brought to the kiln labourer and the right femoral area was prepped and draped in the usual fashion. After conscious sedation and local anesthesia the right femoral artery was punctured and cannulated with the arterial sheath. Selective Coronary angiography was performed with the coronary catheters in multiple projections. These were withdrawn. The pigtail catheter was advanced into the central circulation and left ventricle for pressure measurements and left ventriculography which was performed in the RUIZ projection. This was withdrawn. angiography the right common femoral arteries performed sheath was not suitable position for vascular closure device. This was removed and Martha seal was attempted but there was a lot of scar tissue. Despite pre-dilated I could not pass the Angio-Seal sheath. Hemostasis was obtained using local pressure. The patient tolerated the procedure well with no complications. Estimated blood loss was 15 cc Findings:: Pressures: Pre angiographic aortic pressure was 122/94 at post was 126/76. LV pressure was 126/ 19 mmHg Left coronary artery left main was patent. The stent in the proximal to mid Left anterior descending was patent, with a 40% stenosis of the mid Left anterior descending after the stent. There was ?jailing? of the 1st septal and 1st diagonal which is a very small vessel, with significant ostial stenosis of the diagonal. There is some mild to moderate ostial disease of the first septal. There is a ramus vessel of moderate size which bifurcates and has a 40-50% stenosis just prior to the bifurcation involving 1 of the branches. The circumflex is large and widely patent. Right coronary artery: The codominant right coronary artery has no significant disease. Left ventriculogram: Left ventriculography revealed normal left ventricular systolic function, ejection fraction 60-65%. Conclusion:: Patent stent in the proximal to mid Left anterior descending. 40% stenosis of the mid Left anterior descending be on stent. Disease of the small vessels, particularly involving the 1st diagonal which is quite small and the ostium of the 1st septal. The ramus branch has a 40-50% stenosis involving it's bifurcation.. Normal left ventricular systolic function, ejection fraction 60-65% Assessment and Plan Assessment and plan (1) NSTEMI (non-ST elevated myocardial infarction): Onset Date: 05/18/21
[2022-12-27] MEDS: HYDROcodone/acetaminophen (*CRX) 5-325 MG TABLET 2 TAB PO ×2 (13:32→19:56)
--- NOTE | 2022-12-27 16:03 | PM.IMPN ---
Progress Note: A&P Assessment and Plan (1) Chest pain: Qualifiers: Chest pain type: precordial pain Qualified Code(s): R07.2 - Precordial pain Code(s): R07.9 - Chest pain, unspecified Status: Acute (2) Hypertension: Qualifiers: Hypertension type: primary hypertension Qualified Code(s): I10 - Essential (primary) hypertension Code(s): I10 - Essential (primary) hypertension Status: Acute (3) Chronic back pain: Qualifiers: Back pain location: low back pain Back pain laterality: midline Sciatica presence: without sciatica Qualified Code(s): M54.50 - Low back pain, unspecified; G89.29 - Other chronic pain Code(s): M54.9 - Dorsalgia, unspecified; G89.29 - Other chronic pain Status: Acute Plan Problem List 1. NSTEMI Continue GDMT, heparin drip for cardiac cath today monitor 2. hypertension continue amlodipine, lisinopril, metoprolol monitor BP significant other observed some snoring, possible apnea. apnea link ordered. 3. chronic back pain continue tramadol b.i.d. melatonin for insomnia related to back discomfort during admissions Chronic Conditions - pre-diabetic, last A1C 6.4 on 11/08/22 - mirena IUD in place - continue Wellbutrin for depressed mood - TYL prn for HAs/pain Diet: NPO for possible procedure, awaiting cards consult GI Prophylaxis: PPI started DVT Prophylaxis: SCDs, heparin gtt Lines: pIV Code Status: Full Code, confirmed on 12/26/22 Subjective Date/time seen: 12/27/22 16:03 Interval history: for cardiac today Review of Systems Review of Systems: All systems reviewed & are unremarkable except as noted in HPI and below Exam Narrative: Sitting in hospital bed with significant other at bedside. Const: General: comfortable and no acute distress HENMT: Mouth: Yes moist mucous membranes Eyes: General: appearance normal, both eyes and all related structures Sclera: sclerae normal Pupils: Equal, round and reactive pupils present Resp: Effort & Inspection: normal respiratory effort Auscultation: clear to auscultation bilaterally Cardio: Rate: regular rate Rhythm: regular rhythm Other: S1-S2 present without murmur, rub, ectopy GI: Auscultation: normal bowel sounds Skin: General skin exam: normal color and no rashes or lesions noted Wounds: no wounds Neuro: Cranial nerves: Yes Equal, round and reactive pupils present Speech: normal speech Motor exam (neuro): 5/5 motor strength present throughout Sensory Exam: normal sensation Other: A/Ox4 Extrem: General: normal to inspection Psych: Mental Status: mental status grossly normal Affect: normal affect Other: Good insight and judgment Objective Data Vital Signs Vital Signs: Vital Signs - 24 hr 12/26/22 16:30 12/26/22 18:00 12/26/22 19:57 Temperature 96.8 F L 97.1 F L Pulse Rate 70 84 76 Respiratory Rate 20 20 Blood Pressure 110/72 119/76 Pulse Oximetry 96 99 Oxygen Delivery 12/26/22 20:00 12/26/22 20:00 12/26/22 23:26 Temperature Pulse Rate 75 Respiratory Rate Blood Pressure Pulse Oximetry Oxygen Delivery Room Air Room Air 12/27/22 00:00 12/27/22 00:00 12/26/22 22:45 Temperature 97.1 F L Pulse Rate 67 73 Respiratory Rate 20 Blood Pressure 92/56 L Pulse Oximetry 99 96 Oxygen Delivery Room Air 12/27/22 03:42 12/27/22 03:54 12/27/22 04:00 Temperature 97.6 F Pulse Rate 63 59 L Respiratory Rate 20 Blood Pressure 101/58 L Pulse Oximetry 98 Oxygen Delivery Room Air 12/27/22 08:28 12/27/22 09:05 12/27/22 08:00 Temperature 96.4 F L Pulse Rate 70 70 70 Respiratory Rate 18 18 Blood Pressure 96/64 L Pulse Oximetry 99 99 Oxygen Delivery Room Air 12/27/22 08:00 12/27/22 10:00 12/27/22 12:55 Temperature Pulse Rate 72 80 70 Respiratory Rate 16 Blood Pressure 102/70 Pulse Oximetry 97 Oxygen Delivery Room Air
--- NOTE | 2022-12-27 16:44 | PC.NURSE ---
On 12/27/22, the student, Ioana [facility], provided care and completed [facility] documentation on this patient. I have reviewed the student's documentation and agree with the findings.
[2022-12-28] VITALS (12 sets, daily range): BP systolic 90–115; BP diastolic 57–81; PULSE 58–77; RESP 16–18; TEMP 36.3–36.8; O2SAT 98–100
[2022-12-28] MEDS: HYDROcodone/acetaminophen (*CRX) 5-325 MG TABLET 2 TAB PO ×3 (02:04→13:30)
[2022-12-28 05:37] LABS: Basophils Percent Auto 0.3 % (0.2-1.2); Eosinophils Absolute Auto 0.1 K/mm3 (0-0.3); Eosinophils Percent Auto 1.5 % (0-4.4); Hematocrit 38.3 % (37.0-47.0); Hemoglobin 12.7 g/dL (12.0-15.0); Immature Granulocyte Absolute 0.01 K/mm3 (0.00-0.031); Immature Granulocyte Percent A 0.2 % (0-0.5); Lymphocytes Absolute Auto 1.84 K/mm3 (0.9-3.2); Lymphocytes Percent Auto 31.6 % (18.3-44.2); Mean Corpuscular HGB Conc 33.2 g/dl (32-36); Mean Corpuscular Hemoglobin 29.7 pg (26-34); Mean Corpuscular Volume 89.5 fl (80-100); Monocytes Absolute Auto 0.5 K/mm3 (0.1-0.6); Monocytes Percent Auto 8.4 % (2.6-8.5); Neutrophils Absolute Auto 3.4 K/mm3 (1.3-6.7); Platelet Count Result 210 k/mm3 (150-375); Red Blood Count 4.28 M/mm3 (4.2-5.4); Red Cell Distribution Width 12.1 % (11.5-14.5); White Blood Count 5.8 K/mm3 (4.5-10.0)
[2022-12-28 05:43] LABS: Alanine Aminotransferase 25 U/L (6-35); Albumin Level 3.7 g/dL (3.5-5.1); Alkaline Phosphatase 73 U/L (38-126); Anion Gap 5 mmol/L (8-16); Aspartate Amino Transferase 23 U/L (14-36); Bilirubin,Total 0.5 mg/dL (0.2-1.3); Blood Urea Nitrogen 8 mg/dL (7-17); Calcium 8.5 mg/dL (8.4-10.2); Carbon Dioxide 29 mmol/L (22-30); Chloride 104 mmol/L (98-107); Estimated CRCL calculation 134 ml/min; Estimated Glomerular Filt Rate > 60; Glucose 132 mg/dL (65-110); Sodium 138 mmol/L (137-145)
--- NOTE | 2022-12-28 09:00 | PC.NURSE ---
Spoke with Arcelia Smith NP regarding pt's BP of 90/57. NEw order for 500 ml bolus and recheck BP. Hold oral BP medications at this time
[2022-12-28] MEDS: CLOPIDOGREL BISULFATE 75 MG TABLET PO (09:15)
[2022-12-28] MEDS: ASPIRIN 81 MG ENTERIC TABLET PO (09:15)
[2022-12-28] MEDS: COLCHICINE 0.6 MG TABLET PO (09:15)
[2022-12-28] MEDS: lisinopriL 20 MG TABLET PO (09:15)
[2022-12-28] MEDS: ATORVASTATIN 40 MG TABLET 80 MG PO (09:15)
[2022-12-28] MEDS: buPROPion HCL XL (24 HR) 150 MG TABCR 300 MG PO (09:16)
[2022-12-28] MEDS: METOPROLOL SUCCINATE EXT REL 25 MG TABCR PO (09:16)
--- NOTE | 2022-12-28 09:17 | PC.NURSE ---
RN entered room to assess pt. Pt states I feel fine. I don't feel like my BP is low. Can you recheck it and see? RN recheck's BP. BP is 115/81. Dr. Palma notified of new BP. New orders to proceed with medications but hold amlodipine. NS bolus cancelled. . Recheck BP this afternoon and hopefully d/c pt. Pt updated on plan for today, and in agreement.
--- NOTE | 2022-12-28 11:57 | PM.DS ---
DS: Admitting Diagnosis Discharge Date 12/28/22 Admitting Diagnosis NSTEMI DS: Discharge Diagnosis Discharge Diagnosis (1) NSTEMI (non-ST elevated myocardial infarction): Onset Date: 05/18/21 Code(s): I21.4 - Non-ST elevation (NSTEMI) myocardial infarction Status: Acute DS: Summary Hospital Course Hospital Course: 37 y/o F presents here with chest pain with past medical history of CAD with 1 stent placed, HTN, psoriasis/psoriatic arthritis. Patient presents here with left-sided chest pain that began around 1:00 a.m. patient reports that the pain radiated to her left shoulder, LUE, and neck.? She describes the pain as intense, strong.? Pain would increase when she would lay down and with ease when she sat upright.? She did not take any medication for the pain at home.? Due to continuation of pain and becoming more constant patient sought care in the ED around 8:00 a.m..? Given total of 324 of aspirin and heparin gtt initiated due patient history, risk factors, and concern for ACS.? Patient currently reporting chest pain that she describes as dull.? Pain remains in the left side without radiation.? No associated nausea, vomiting, shortness of breath, palpitations.? One brief episode of diaphoresis after admission. +MAHER.? Patient was admitted for similar symptoms in November of this year.? Troponins were negative during that admission and she had a negative echo/stress test. +Troponin today. underwent cardiac cath which showed some small disease in small blood vessels and likely the very small 1st diagonal. recommended Colchicine in addition to her current GDMT. BP is on the soft side, patietn advised to hold amlodipine until follow up with PCP Time Spent with Patient Time attestation: Total time spent providing and/or coordinating discharge services: DS: Data Data Completed and Pending Labs on day of discharge: Labs from last 24 hours 12/28/22 04:43 WBC 5.8 RBC 4.28 Hgb 12.7 Hct 38.3 MCV 89.5 MCH 29.7 MCHC 33.2 RDW 12.1 Plt Count 210 MPV 9.0 Immature Gran % (Auto) 0.2 Neut % (Auto) 58.0 Lymph % (Auto) 31.6 [place] % (Auto) 8.4 Eos % (Auto) 1.5 Baso % (Auto) 0.3 Lymph # (Auto) 1.84 [place] # (Auto) 0.5 Eos # (Auto) 0.1 Baso # (Auto) 0.0 Abs Immat Gran (auto) 0.01 Absolute Neuts (auto) 3.4 Absolute Nucleated RBC 0.0 Nucleated RBC % 0.0 Sodium 138 Potassium 4.0 Chloride 104 Carbon Dioxide 29 Anion Gap 5 L BUN 8 Creatinine 0.60 L Estim Creat Clear Calc 134 Estimated GFR > 60 Glucose 132 H Calcium 8.5 Magnesium 2.0 Total Bilirubin 0.5 AST 23 ALT 25 Alkaline Phosphatase 73 Total Protein 7.0 Albumin 3.7 Discharge Plan Discharge Attending physician on discharge: Dar Palma Consulting providers: Kristy Zapata Discharging Clinician: Dar Palma Anticipated Discharge Date/Time: 12/28/22 11:56 Patient Disposition: Home, Self-Care Activity: as tolerated Diet: heart healthy and diabetic Discharge Instructions: No driving, for 2-3 days, until the cardiac catheterization site is no longer tender. May return to work in 1 week. No lifting more than 10 lb for 1 week. No long walks, heavy exertion, sexual activity or exercise for 1 week. You may shower and dab the cardiac catheterization site dry with a clean towel, but no tub baths or swimming for 1 week. Call [facility] at [phone] if pain or unusual swelling at the cardiac catheterization site. If severe pain or bleeding, go to the emergency room. 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 Call [facility] for results of lipoprotein A level which will not be available for few days. [facility] [address]
[2023-01-02 06:33] LABS: Lipoprotein A <10 nmol/L (<75)
== END 2022-12-28 13:55 | disposition home or self-care (01) | DRG 282 ==
LOC: ANHED 10:09 → ANHIMU 10:44
PROVIDERS: Internal Medicine Cardiovascular Disease; Student in an Organized Health Care Education/Training Program; Admitting Provider Internal Medicine; Emergency Provider Emergency Medicine; PCP Family Medicine; Visit Provider Internal Medicine
PROC: 4A023N7 Measurement of Cardiac Sampling and Pressure, Left Heart, Percutaneous Approach (ICD-10-PCS; CPT 93452; principal; 2022-12-27 11:30)
DX: I21.4 Non-ST elevation (NSTEMI) myocardial infarction (principal); I25.10 Atherosclerotic heart disease of native coronary artery without angina pectoris; E78.5 Hyperlipidemia, unspecified; L40.50 Arthropathic psoriasis, unspecified; I10 Essential (primary) hypertension; R73.03 Prediabetes; M54.9 Dorsalgia, unspecified; G89.29 Other chronic pain; I25.2 Old myocardial infarction; Z87.891 Personal history of nicotine dependence; Z95.5 Presence of coronary angioplasty implant and graft
CPT/HCPCS: 36415; 71046; 80048; 80053; 80061; 81025; 83690; 83695; 83735; 84484; 85025; 85610; 85730; 93005; 93458; 94762; 99285; A9270; C1887; C1894; C9113; J1644; J2250; J3010; J7030; J7040

== ENCOUNTER 2023-09-02 03:26 | Emergency (ER) | payer OTHER, SELFPAY ==
[2023-09-02] VITALS (20 sets, daily range): BP systolic 135–185; BP diastolic 86–124; PULSE 72–101; RESP 13–18; TEMP 37; O2SAT 97–100
--- NOTE | ~2023-09-02 | CT_ITS ---
CT of the Abdomen and Pelvis: Indication: Abdominal pain Technique: 2.5 mm axial scans were obtained through the abdomen and pelvis following intravenous adm inistration of 100 cc of Omnipaque 350. Dose reduction technique was used on this scan by utilizing a utomated exposure control and iterative reconstruction technique. The dose-length product (DLP) was 7 34.62 mGy-cm. Findings: Scans through the lung bases are unremarkable. The liver, spleen, pancreas, gallbladder, adrenals and kidneys are within normal limits. There are at herosclerotic calcifications of the aorta. No lymphadenopathy. No bowel obstruction or bowel wall thickening. There is no evidence to suggest acute appendicitis. Images through the pelvis were performed. Urinary bladder unremarkable. IUD in place. 4.5 cm right ov elie cyst present. No ascites. Impression: 4.5 cm right ovarian cyst. IUD in place. Reviewed, dictated and finalized at [facility]. Impression: 4.5 cm right ovarian cyst. IUD in place.
--- NOTE | 2023-09-02 03:39 | ED.GENADULT ---
HPI - General Adult General Chief complaint: Abdominal Pain Stated complaint: ABD PAIN X5D Time Seen by Provider: 09/02/23 03:31 History of Present Illness HPI narrative: Patient year old female who presents emergency department with chief complaint of epigastric and right upper quadrant pain. Patient reports that she got back from [place] and reports that she is having pain in the epigastric region right upper quadrant. The patient reports that the pain is sharp reports she has not been able to eat or drink reports she has had diarrhea with this the patient denies fever reports no prior abdominal surgeries reports that she has an IUD Related Data Home Medications Medication Instructions Recorded Confirmed amlodipine 10 mg tablet 10 mg PO DAILY 01/22/19 12/26/22 levonorgestrel 21 mcg/24 hr (up to 1 device intrauterine ONCE 01/22/19 12/26/22 8 years) 52 mg intrauterine device (Mirena) lisinopril 20 mg tablet 20 mg PO DAILY 05/18/21 12/26/22 tramadol 50 mg tablet 100 mg PO USEASDIRECTD 05/18/21 12/26/22 atorvastatin 40 mg tablet 80 mg PO DAILY 11/08/22 12/26/22 bupropion HCl 150 mg 24 hr tablet, 300 mg PO DAILY 11/08/22 12/26/22 extended release metoprolol succinate 50 mg 25 mg PO QAM 11/08/22 12/26/22 tablet,extended release 24 hr Allergies Allergy/AdvReac Type Severity Reaction Status Date / Time amoxicillin [From Augmentin] Allergy Itching Verified 11/08/22 07:01 clavulanic acid Allergy Itching Verified 11/08/22 07:01 [From Augmentin] Review of Systems Review of Systems: A 10 system review of systems was completed on the patient and is negative except for what is stated in the HPI. Nursing and ancillary documentation was reviewed. [facility] Past Medical History Medical History CAD (coronary artery disease) Chronic back pain Family history of premature CAD HLD (hyperlipidemia) Hypertension NSTEMI (non-ST elevated myocardial infarction) (05/18/21) Pre-diabetes Psoriasis Psoriatic arthritis Surgical History Surgical History History of back surgery L5/S1 History of tonsillectomy Family History Family History Father Heart attack, Onset Age: 31 Three heart attacks Hx of CABG And valve surgery Sleep apnea Psoriasis Sibling Heart attack, Onset Age: 35 Grandparent Breast cancer COPD (chronic obstructive pulmonary disease) Mother Leukemia COPD (chronic obstructive pulmonary disease) Sleep apnea Psoriasis Social History Social History Social History: 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 Lives at home with her and 2 children. Surrogate decision maker: . Code status: Full code. Smoking packs per day: 1 Smoking cigarettes per day: 20.0 Years smoked: 15 Smoking pack-years: 15.00 Smoking status: Former smoker Tobacco type: cigarettes and e-cigarettes/vaping Additional smoking assessment comments: pt now vapes Alcohol intake: never Alcohol use details: occasional, could not identify last time she drank (11/2022) Substance use: never Substance use type: does not use Lack of Transportation: No Lack of Food: Never True Current Housing: I Have Housing Concerned About Future Housing: No Difficulty Paying Gas/Electric Bills: No Difficulty Paying for Meds: No Currently Unemployed: No Education: High School Diploma/GED Difficulty w/ Childcare or Family Care: No Living arrangements: with family Occupation/Education: occupation Spiritual care concerns: No Exam Narrative: GENERAL: Well-appearing, well-nourished, and in no acute distress. HEAD: Normocephalic, atraumatic. EYES: PERRLA and EOMI. ENT: Nares clear, no rhinorrhea or epistaxis. Mucous membranes
[2023-09-02] MEDS: ONDANSETRON INJ 4 MG/2 ML VIAL IV PUSH (03:42)
[2023-09-02] MEDS: MORPHINE SULFATE (*CRX) 4 MG/ML INJ IV PUSH (03:42)
[2023-09-02] MEDS: SODIUM CHLORIDE 0.9% IV 1,000 ML 999 ML IV CONT ×2 (03:42→04:49)
[2023-09-02 03:55] LABS: Basophils Percent Auto 0.1 % (0.2-1.2); Eosinophils Absolute Auto 0.1 K/mm3 (0-0.3); Eosinophils Percent Auto 1.8 % (0-4.4); Hemoglobin 15.6 g/dL (12.0-15.0); Immature Granulocyte Absolute 0.02 K/mm3 (0.00-0.031); Immature Granulocyte Percent A 0.3 % (0-0.5); Lymphocytes Absolute Auto 2.19 K/mm3 (0.9-3.2); Lymphocytes Percent Auto 29.6 % (18.3-44.2); Mean Corpuscular HGB Conc 35.5 g/dl (32-36); Mean Corpuscular Hemoglobin 30.2 pg (26-34); Mean Corpuscular Volume 85.3 fl (80-100); Mean Platelet Volume 9.1 fl (7.4-10.4); Monocytes Absolute Auto 0.6 K/mm3 (0.1-0.6); Monocytes Percent Auto 8.5 % (2.6-8.5); Neutrophils Absolute Auto 4.4 K/mm3 (1.3-6.7); Neutrophils Percent Auto 59.7 % (45.5-73.1); Platelet Count Result 312 k/mm3 (150-375); Red Blood Count 5.16 M/mm3 (4.2-5.4); Red Cell Distribution Width 11.9 % (11.5-14.5); White Blood Count 7.4 K/mm3 (4.5-10.0)
[2023-09-02 04:06] LABS: Lipase 125 U/L (23-300)
[2023-09-02 04:11] LABS: Alanine Aminotransferase 21 U/L (6-35); Albumin Level 4.5 g/dL (3.5-5.1); Alkaline Phosphatase 71 U/L (38-126); Anion Gap 9 mmol/L (4-12); Aspartate Amino Transferase 20 U/L (14-36); Blood Urea Nitrogen 6 mg/dL (7-17); Carbon Dioxide 29 mmol/L (22-30); Chloride 101 mmol/L (98-107); Estimated CRCL calculation 96 ml/min; Estimated Glomerular Filt Rate > 60; Glucose 111 mg/dL (65-110); Potassium 2.8 mmol/L (3.4-5.0); Sodium 139 mmol/L (137-145)
[2023-09-02] MEDS: KCL 20 MEQ/SW 100 ML 100 ML 50 MEQ IVPB (04:46)
[2023-09-02 05:42] LABS: Appearance Urine Clear (Clear); Bilirubin Urine Negative (Negative); Blood Urine Negative (Negative); Color Urine Yellow (Yellow); Glucose Urine UA Negative (Negative); Ketones Urine Trace mg/dL (Negative); Leukocyte Esterase Ur Negative LEU/UL (Negative); Nitrate Urine Negative (Negative); Protein Urine Negative (Negative); Urobilinogen Urine 0.2 mg/dL (<2.0)
[2023-09-02 05:46] LABS: Add Urine Microscopic? NO; Specific Grav Ur 1.015 (1.001-1.035)
[2023-09-02] MEDS: HYDROmorphone HCL INJ (*CRX) 1 MG/ML SYR IV PUSH (05:48)
== END 2023-09-02 07:01 | disposition home or self-care (01) ==
PROVIDERS: Emergency Provider Emergency Medicine; PCP Physician Assistant Medical
DX: R10.13 Epigastric pain (principal); R10.11 Right upper quadrant pain; E87.6 Hypokalemia; I25.10 Atherosclerotic heart disease of native coronary artery without angina pectoris; E78.5 Hyperlipidemia, unspecified; I10 Essential (primary) hypertension; I25.2 Old myocardial infarction; Z87.891 Personal history of nicotine dependence
CPT/HCPCS: 36415; 74177; 80053; 81003; 81025; 83690; 85025; 96365; 96366; 96367; 96375; 99284; J1170; J2270; J2405; J3480; J7030; Q9967

== ENCOUNTER 2023-09-03 12:26 | Observation (INO) | payer OTHER, SELFPAY ==
--- NOTE | ~2023-09-03 | CT_ITS ---
CT abdomen pelvis w con Ordering provider: Terrell Jovel MD History: . Generalized abdominal pain . Comparison: September 02, 2023 Technique: CT abdomen with IV and without oral contrast. Radiation reduction technique utilized. DLP is 651.76 mGy. 100 mL Omnipaque 350 was given IV. Findings: VISUALIZED LOWER CHEST: Normal. UPPER ABDOMINAL ORGANS: Liver: Normal. Gallbladder: Normal. Spleen: Normal. Stomach/duodenum: Normal. Pancreas: Normal. Adrenals: Normal. Kidneys: Tiny cysts in the right kidney upper and lower poles. Uterus: Normal. IUD is noted. Bilateral ovarian cysts are seen with the largest on the right side suzie suring 4 cm. VISUALIZED BOWEL AND MESENTERY: Fluid is seen in the right side of the colon to the right third of th e transverse colon. Normal appendix. Dilated small bowel loops with fluid content are seen in the rig ht side of the abdomen the differential includes enteritis versus diarrhea versus early obstruction. Follow-up advised. No free air or free fluid. No mesenteric lymphadenopathy. RETROPERITONEUM: Mild atheromatous disease of the abdominal aorta. No retroperitoneal lymphadenopathy . MUSCULOSKELETAL: The superficial soft tissues are normal. Age appropriate degenerative changes of the spine. Bilateral sacroiliacs. IMPRESSION: Fluid content in the right side of the colon and in the distal ileal loops with slight dilatation of the small bowel. The differential includes enteritis, diarrhea, and early obstruction. Follow-up advi sed. Bilateral ovarian cysts with the largest on the right side measures 4 cm. Reviewed, dictated and finalized at location A. IMPRESSION: Fluid content in the right side of the colon and in the distal ileal loops with slight dilatation of the small bowel. The differential includes enteritis, nereyda rrhea, and early obstruction. Follow-up advised. Bilateral ovarian cysts with the largest on the right side measures 4 cm.
[2023-09-03 12:38] VITALS: BP 186/102; PULSE 75; RESP 16; TEMP 36.2; O2SAT 100
[2023-09-03 13:00] LABS: Basophils Percent Auto 0.1 % (0.2-1.2); Eosinophils Absolute Auto 0.1 K/mm3 (0-0.3); Eosinophils Percent Auto 1.4 % (0-4.4); Hematocrit 40.1 % (37.0-47.0); Hemoglobin 14.1 g/dL (12.0-15.0); Immature Granulocyte Absolute 0.03 K/mm3 (0.00-0.031); Immature Granulocyte Percent A 0.4 % (0-0.5); Lymphocytes Absolute Auto 1.75 K/mm3 (0.9-3.2); Lymphocytes Percent Auto 22.5 % (18.3-44.2); Mean Corpuscular HGB Conc 35.2 g/dl (32-36); Mean Corpuscular Hemoglobin 30.4 pg (26-34); Mean Corpuscular Volume 86.4 fl (80-100); Mean Platelet Volume 8.9 fl (7.4-10.4); Monocytes Absolute Auto 0.4 K/mm3 (0.1-0.6); Monocytes Percent Auto 5.7 % (2.6-8.5); Neutrophils Absolute Auto 5.4 K/mm3 (1.3-6.7); Neutrophils Percent Auto 69.9 % (45.5-73.1); Platelet Count Result 280 k/mm3 (150-375); Red Blood Count 4.64 M/mm3 (4.2-5.4); Red Cell Distribution Width 12.1 % (11.5-14.5); White Blood Count 7.8 K/mm3 (4.5-10.0)
[2023-09-03 13:02] LABS: Appearance Urine Clear (Clear); Bilirubin Urine Negative (Negative); Blood Urine Negative (Negative); Color Urine Yellow (Yellow); Glucose Urine UA Negative (Negative); Ketones Urine Negative (Negative); Leukocyte Esterase Ur Negative LEU/UL (Negative); Nitrate Urine Negative (Negative); Protein Urine Negative (Negative); Specific Grav Ur 1.009 (1.001-1.035); Urobilinogen Urine 0.2 mg/dL (<2.0)
[2023-09-03 13:11] LABS: Add Urine Microscopic? NO
--- NOTE | 2023-09-03 13:36 | ED.ABDPAIN ---
HPI - Abdominal Pain General Chief Complaint: Abdominal Pain Stated Complaint: abd pain Time Seen by Provider: 09/03/23 13:36 Source: patient and family Mode of arrival: ambulatory Limitations: no limitations History of Present Illness HPI narrative: 38 years old white female came to the emergency room by private car with her complaining of intermittent upper abdominal pain, sharp, twist started 1 week ago while was in [place] for vacation, the symptoms continued and got worse after coming back home. The abdominal pain associated with low frequent watery stools, patient is telling me that she had 5 episodes of diarrhea over the last 2 hours. She denies any fever or chills. History of diabetes, hypertension, hyperlipidemia, coronary artery disease patient vapes and currently on aspirin. Patient lying in a bed, restless, her main complaint at this time is abdominal pain. She denies any radiation of pain. Patient's have the same food during the vacation and denies having any symptoms. Related Data Home Medications Medication Instructions Recorded Confirmed amlodipine 10 mg tablet 10 mg PO DAILY 01/22/19 12/26/22 levonorgestrel 21 mcg/24 hr (up to 1 device intrauterine ONCE 01/22/19 12/26/22 8 years) 52 mg intrauterine device (Mirena) lisinopril 20 mg tablet 20 mg PO DAILY 05/18/21 12/26/22 tramadol 50 mg tablet 100 mg PO USEASDIRECTD 05/18/21 12/26/22 atorvastatin 40 mg tablet 80 mg PO DAILY 11/08/22 12/26/22 bupropion HCl 150 mg 24 hr tablet, 300 mg PO DAILY 11/08/22 12/26/22 extended release metoprolol succinate 50 mg 25 mg PO QAM 11/08/22 12/26/22 tablet,extended release 24 hr Allergies Allergy/AdvReac Type Severity Reaction Status Date / Time amoxicillin [From Augmentin] Allergy Itching Verified 09/03/23 13:34 clavulanic acid Allergy Itching Verified 09/03/23 13:34 [From Augmentin] Review of Systems Review of Systems: All systems reviewed & are unremarkable except as noted in HPI and below PMFSH Past Medical History Medical History CAD (coronary artery disease) Chronic back pain Family history of premature CAD HLD (hyperlipidemia) Hypertension NSTEMI (non-ST elevated myocardial infarction) (05/18/21) Pre-diabetes Psoriasis Psoriatic arthritis Surgical History Surgical History History of back surgery L5/S1 History of tonsillectomy Family History Family History Father Heart attack, Onset Age: 31 Three heart attacks Hx of CABG And valve surgery Sleep apnea Psoriasis Sibling Heart attack, Onset Age: 35 Grandparent Breast cancer COPD (chronic obstructive pulmonary disease) Mother Leukemia COPD (chronic obstructive pulmonary disease) Sleep apnea Psoriasis Social History Social History Social History: 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 Lives at home with her and 2 children. Surrogate decision maker: . Code status: Full code. Smoking packs per day: 1 Smoking cigarettes per day: 20.0 Years smoked: 15 Smoking pack-years: 15.00 Smoking status: Former smoker Tobacco type: cigarettes and e-cigarettes/vaping Additional smoking assessment comments: pt now vapes Alcohol intake: never Alcohol use details: occasional, could not identify last time she drank (11/2022) Substance use: never Substance use type: does not use Lack of Transportation: No Lack of Food: Never True Current Housing: I Have Housing Concerned About Future Housing: No Difficulty Paying Gas/Electric Bills: No Difficulty Paying for Meds: No Currently Unemployed: No Education: High School Diploma/GED Difficulty w/ Childcare or Family Care: No Living arrangements: with family Occupation/Education: occupation [employer]
[2023-09-03 13:54] LABS: Alanine Aminotransferase 18 U/L (6-35); Albumin Level 4.2 g/dL (3.5-5.1); Alkaline Phosphatase 68 U/L (38-126); Anion Gap 8 mmol/L (4-12); Aspartate Amino Transferase 20 U/L (14-36); Bilirubin,Total 0.8 mg/dL (0.2-1.3); Blood Urea Nitrogen 5 mg/dL (7-17); Calcium 8.7 mg/dL (8.4-10.2); Carbon Dioxide 26 mmol/L (22-30); Chloride 105 mmol/L (98-107); Estimated CRCL calculation 96 ml/min; Estimated Glomerular Filt Rate > 60; Glucose 94 mg/dL (65-110); Lipase 95 U/L (23-300); Potassium 3.2 mmol/L (3.4-5.0); Sodium 139 mmol/L (137-145)
[2023-09-03] MEDS: MORPHINE SULFATE (*CRX) 4 MG/ML INJ IV PUSH ×2 (14:08→15:58)
[2023-09-03] MEDS: ONDANSETRON INJ 4 MG/2 ML VIAL IV PUSH ×2 (14:08→15:58)
[2023-09-03] MEDS: SODIUM CHLORIDE 0.9% IV 1,000 ML 999 ML IV CONT (14:08)
[2023-09-03 14:57] VITALS: PULSE 82; RESP 18; O2SAT 99
[2023-09-03 15:22] LABS: Toxigenic C. Diff NEGATIVE (NEGATIVE)
[2023-09-03 15:43] VITALS: BP 164/99; PULSE 82; RESP 18; O2SAT 97
--- NOTE | 2023-09-03 17:03 | ADMGEN ---
This patient, Antonia Kraft, was admitted to 2 Medical Room 261-01. Patient/family oriented to hospital policies and general routines including ID bracelet, bed and alarms, visiting hours, pain management, procedures, bathroom and other care routines, personal items, smoking policy, room service/diet, and visiting hours. Information on how to activate the Rapid Response Team has been discussed. Patient/Family are encouraged to report perceived risks to care and to ask questions if they do not understand what they are told or what they should do.
[2023-09-03] MEDS: SODIUM CHLORIDE 0.9% IV 1,000 ML 150 ML IV CONT ×2 (17:11→23:40)
[2023-09-03 17:18] VITALS: BP 139/89; PULSE 16; RESP 18; TEMP 36.3; O2SAT 100
[2023-09-03 18:14] VITALS: O2SAT 94
[2023-09-03 20:05] VITALS: BP 116/74; PULSE 69; RESP 17; TEMP 36.8; O2SAT 99
[2023-09-03] MEDS: POTASSIUM CHLORIDE 20 MEQ ER TABLET 40 MEQ PO (20:12)
--- NOTE | 2023-09-03 23:33 | PM.IMHP ---
H&P: HPI History of Present Illness Date/Time: 09/03/23 22:00 Chief Complaint: Abdominal pain and diarrhea. Narrative: This is a pleasant 38-year-old female with history of coronary artery disease status post stent, hypertension, hyperlipidemia, prediabetes, psoriasis, and psoriatic arthritis who presented to the emergency department for evaluation of abdominal pain and diarrhea. The patient provides the following history. She was in [place] last week and she returned home a couple of days ago. While she was there she had intermittent GI symptoms including upper abdominal discomfort and loose stools. Her symptoms got worse over the weekend and she was seen in the emergency department late Saturday/early Saturday morning with complaints of epigastric and right upper quadrant pain, poor appetite, and watery diarrhea. Potassium was 2.[address] of the abdomen and pelvis did not show any acute findings. She felt better with supportive care and was discharged home with Bentyl and Zofran. Unfortunately she is feeling worse with increasing diarrhea and ongoing abdominal pain. She had 1 episode of emesis in the emergency department but she believes that is due to the morphine that she was given. She denies fever, chills, sweats, chest pain, shortness of breath, cough, hematemesis, melena, hematochezia, and dysuria. She denies sick contacts. She has not been on any recent antibiotics. She has no history of peptic ulcers, gallbladder disease, or pancreatitis. It should be noted however that she was started on Mounjaro a couple of months ago and she reports tolerating that well without GI symptoms. Her dose was increased from 2.5 mg to 5 mg 1 month ago and her last injection was about a week ago. In the ED: She was afebrile on arrival with stable vital signs. Labs were significant for WBC count of 7.8, hemoglobin 14.1, sodium 139, potassium 3.2, BUN 5, creatinine 0.70, lipase 95. Urinalysis was unremarkable. Stool was negative for C diff. CT of the abdomen and pelvis showed fluid content in the right side of the colon in the distal ileal loops with slight dilatation of the small bowel and bilateral ovarian cyst. She is not feeling much better after receiving IV fluids and antiemetics and she is being admitted in this setting for further treatment. Review of Systems Review of Systems: 12 systems were reviewed and are negative except for as per HPI. PMFSH Past Medical History Medical History (Updated 09/03/23 @ 23:42 by Tamara Lazo PA-C) Chronic back pain Coronary artery disease Hyperlipidemia Hypertension NSTEMI (non-ST elevated myocardial infarction) (05/18/21) Pre-diabetes Psoriasis Psoriatic arthritis Surgical History Surgical History (Updated 09/03/23 @ 23:40 by Tamara Lazo PA-C) History of back surgery L5/S1 History of cardiac catheterization History of coronary artery stent placement History of tonsillectomy Family History Family History Father Heart attack, Onset Age: 31 Three heart attacks Hx of CABG And valve surgery Sleep apnea Psoriasis Sibling Heart attack, Onset Age: 35 Grandparent Breast cancer COPD (chronic obstructive pulmonary disease) Mother Leukemia COPD (chronic obstructive pulmonary disease) Sleep apnea Psoriasis Social History Social History (Updated 09/03/23 @ 23:41 by Tamara Lazo PA-C) Social History: Surrogate medical decision maker: Huey Alba, significant other. Code status: Full code. Smoking packs per day: 1 Smoking cigarettes per day: 20.0 Years smoked: 15 Smoking pack-years: 15.00 Smoking status: Current every day smoker Tobacco type: e-cigarettes/vaping Smokeless tobacco user: other Additional smoking assessment comments: pt now vapes Alcohol intake: never Alcohol use details: occasional, could not identify last time she drank (11/2022) Substance use:
[2023-09-04 05:12] LABS: Hemoglobin 12.1 g/dL (12.0-15.0); Mean Corpuscular HGB Conc 34.6 g/dl (32-36); Mean Corpuscular Hemoglobin 30.1 pg (26-34); Mean Corpuscular Volume 87.1 fl (80-100); Platelet Count Result 223 k/mm3 (150-375); Red Blood Count 4.02 M/mm3 (4.2-5.4); Red Cell Distribution Width 11.9 % (11.5-14.5); White Blood Count 5.6 K/mm3 (4.5-10.0)
[2023-09-04 05:20] LABS: Alanine Aminotransferase 14 U/L (6-35); Albumin Level 2.8 g/dL (3.5-5.1); Alkaline Phosphatase 48 U/L (38-126); Anion Gap 4 mmol/L (4-12); Aspartate Amino Transferase 17 U/L (14-36); Bilirubin,Total 0.6 mg/dL (0.2-1.3); Blood Urea Nitrogen 3 mg/dL (7-17); Calcium 7.8 mg/dL (8.4-10.2); Carbon Dioxide 24 mmol/L (22-30); Chloride 111 mmol/L (98-107); Estimated CRCL calculation 111 ml/min; Estimated Glomerular Filt Rate > 60; Glucose 75 mg/dL (65-110); Magnesium 1.7 mg/dL (1.6-2.3); Potassium 3.4 mmol/L (3.4-5.0); Sodium 139 mmol/L (137-145)
[2023-09-04 05:28] VITALS: BP 111/75; PULSE 74; RESP 17; TEMP 37.1; O2SAT 100
[2023-09-04] MEDS: SODIUM CHLORIDE 0.9% IV 1,000 ML 150 ML IV CONT ×2 (06:41→20:20)
[2023-09-04] MEDS: ATORVASTATIN 40 MG TABLET 80 MG PO (08:47)
[2023-09-04] MEDS: lisinopriL 20 MG TABLET PO (08:47)
[2023-09-04] MEDS: ASPIRIN 81 MG ENTERIC TABLET PO (08:48)
[2023-09-04] MEDS: CLOPIDOGREL BISULFATE 75 MG TABLET PO (08:48)
[2023-09-04] MEDS: POTASSIUM CHLORIDE 20 MEQ ER TABLET 40 MEQ PO ×2 (08:48→16:43)
[2023-09-04 08:51] VITALS: PULSE 86
[2023-09-04] MEDS: METOPROLOL SUCCINATE EXT REL 25 MG TABCR PO (08:51)
--- NOTE | 2023-09-04 09:07 | PC.NURSE ---
Per Dr. Cifuentes, verify patient's tramadol home dosage and then may order lower dose of tramadol 50mg PO TID.
[2023-09-04] MEDS: traMADol HCL (*CRX) 50 MG TABLET PO ×2 (09:15→22:46)
[2023-09-04 14:21] VITALS: BP 131/79; PULSE 72; RESP 17; TEMP 36.7; O2SAT 99
--- NOTE | 2023-09-04 16:34 | WPDPN ---
Progress Note: A&P Assessment and Plan (1) Gastroenteritis: Code(s): K52.9 - Noninfective gastroenteritis and colitis, unspecified Status: Acute (2) Hypokalemia: Code(s): E87.6 - Hypokalemia Status: Acute (3) Hypertension: Qualifiers: Hypertension type: primary hypertension Qualified Code(s): I10 - Essential (primary) hypertension Code(s): I10 - Essential (primary) hypertension Status: Acute (4) Bilateral ovarian cysts: Code(s): N83.201 - Unspecified ovarian cyst, right side; N83.202 - Unspecified ovarian cyst, left side Status: Acute Plan Interval history 09/04/2023: patient with abdominal pain, and diarrhea, etiology is uncertian however today patient symptoms have improved, patient was started with clear liquids which she tolerated well, and advance to regular diet which she just ate, will monitor patient over night, and reassess in the morning, possible discharge home. Subjective Date/time seen: 09/04/23 16:34 Interval history: Chief Complaint: Abdominal pain and diarrhea. [id number]: This is a pleasant 38-year-old female with history of coronary artery disease status post stent, hypertension, hyperlipidemia, prediabetes, psoriasis, and psoriatic arthritis who presented to the emergency department for evaluation of abdominal pain and diarrhea. The patient provides the following history. She was in [place] last week and she returned home a couple of days ago. While she was there she had intermittent GI symptoms including upper abdominal discomfort and loose stools. Her symptoms got worse over the weekend and she was seen in the emergency department late Saturday/early Saturday morning with complaints of epigastric and right upper quadrant pain, poor appetite, and watery diarrhea. Potassium was 2.[address] of the abdomen and pelvis did not show any acute findings. She felt better with supportive care and was discharged home with Bentyl and Zofran. Unfortunately she is feeling worse with increasing diarrhea and ongoing abdominal pain. She had 1 episode of emesis in the emergency department but she believes that is due to the morphine that she was given. She denies fever, chills, sweats, chest pain, shortness of breath, cough, hematemesis, melena, hematochezia, and dysuria. She denies sick contacts. She has not been on any recent antibiotics. She has no history of peptic ulcers, gallbladder disease, or pancreatitis. It should be noted however that she was started on Mounjaro a couple of months ago and she reports tolerating that well without GI symptoms. Her dose was increased from 2.5 mg to 5 mg 1 month ago and her last injection was about a week ago. In the ED: She was afebrile on arrival with stable vital signs. Labs were significant for WBC count of 7.8, hemoglobin 14.1, sodium 139, potassium 3.2, BUN 5, creatinine 0.70, lipase 95. Urinalysis was unremarkable. Stool was negative for C diff. CT of the abdomen and pelvis showed fluid content in the right side of the colon in the distal ileal loops with slight dilatation of the small bowel and bilateral ovarian cyst. She is not feeling much better after receiving IV fluids and antiemetics and she is being admitted in this setting for further treatment. Interval history 09/04/2023: patient with abdominal pain, and diarrhea, etiology is uncertian however today patient symptoms have improved, patient was started with clear liquids which she tolerated well, and advance to regular diet which she just ate, will monitor patient over night, and reassess in the morning, possible discharge home. Review of Systems Review of Systems: 12 systems were reviewed and are negative except for as per HPI. Exam Narrative: General: patient is comfortable NAD HEENT: eyes are clear nonicteric, normocephalic, atraumatic. Oral mucosa moist. ABD: obese SKIN: no obevious rash EXTREMITIES: no edema NEURO:A&O grossly intact
[2023-09-04 21:02] VITALS: BP 132/80; PULSE 64; RESP 18; TEMP 36.4; O2SAT 100
--- NOTE | 2023-09-04 21:45 | PC.NURSE ---
REPORT CALLED TO MEGAN RODGERS. TRANSFERRED PT FROM 261 TO ROOM [id number] IN BED. PT BELONGINGS MOVED WITH PT
[2023-09-04 21:50] VITALS: O2SAT 100
[2023-09-04 23:46] VITALS: TEMP 36.4
[2023-09-05 06:00] VITALS: BP 135/90; PULSE 69; RESP 16; TEMP 36.4; O2SAT 100
[2023-09-05 06:30] LABS: Hematocrit 35.3 % (37.0-47.0); Hemoglobin 11.8 g/dL (12.0-15.0); Mean Corpuscular HGB Conc 33.4 g/dl (32-36); Mean Corpuscular Hemoglobin 29.8 pg (26-34); Mean Corpuscular Volume 89.1 fl (80-100); Mean Platelet Volume 9.3 fl (7.4-10.4); Platelet Count Result 213 k/mm3 (150-375); Red Blood Count 3.96 M/mm3 (4.2-5.4); Red Cell Distribution Width 12.4 % (11.5-14.5); White Blood Count 4.8 K/mm3 (4.5-10.0)
[2023-09-05 06:42] LABS: Alanine Aminotransferase 13 U/L (6-35); Albumin Level 3.2 g/dL (3.5-5.1); Alkaline Phosphatase 53 U/L (38-126); Anion Gap 5 mmol/L (4-12); Aspartate Amino Transferase 15 U/L (14-36); Bilirubin,Total 0.5 mg/dL (0.2-1.3); Blood Urea Nitrogen 3 mg/dL (7-17); Calcium 8.3 mg/dL (8.4-10.2); Carbon Dioxide 25 mmol/L (22-30); Chloride 111 mmol/L (98-107); Estimated CRCL calculation 111 ml/min; Estimated Glomerular Filt Rate > 60; Glucose 84 mg/dL (65-110); Magnesium 1.8 mg/dL (1.6-2.3); Potassium 3.9 mmol/L (3.4-5.0); Sodium 141 mmol/L (137-145)
[2023-09-05] MEDS: SODIUM CHLORIDE 0.9% IV 1,000 ML 150 ML IV CONT (06:46)
[2023-09-05 08:43] VITALS: PULSE 66
[2023-09-05] MEDS: METOPROLOL SUCCINATE EXT REL 25 MG TABCR PO (08:43)
[2023-09-05] MEDS: ASPIRIN 81 MG ENTERIC TABLET PO (08:44)
[2023-09-05] MEDS: ATORVASTATIN 40 MG TABLET 80 MG PO (08:44)
[2023-09-05] MEDS: lisinopriL 20 MG TABLET PO (08:44)
[2023-09-05] MEDS: POTASSIUM CHLORIDE 20 MEQ ER TABLET 40 MEQ PO (08:44)
[2023-09-05] MEDS: CLOPIDOGREL BISULFATE 75 MG TABLET PO (08:44)
[2023-09-05] MEDS: traMADol HCL (*CRX) 50 MG TABLET PO (08:48)
[2023-09-05 09:05] VITALS: O2SAT 100
--- NOTE | 2023-09-05 11:24 | PM.DS ---
DS: Admitting Diagnosis Discharge Date 09/05/2023 Admitting Diagnosis Abdominal pain and diarrhea. DS: Discharge Diagnosis Discharge Diagnosis (1) Gastroenteritis: Code(s): K52.9 - Noninfective gastroenteritis and colitis, unspecified Status: Acute DS: Summary Hospital Course Hospital Course: [id number]: This is a pleasant 38-year-old female with history of coronary artery disease status post stent, hypertension, hyperlipidemia, prediabetes, psoriasis, and psoriatic arthritis who presented to the emergency department for evaluation of abdominal pain and diarrhea. The patient provides the following history. She was in [place] last week and she returned home a couple of days ago. While she was there she had intermittent GI symptoms including upper abdominal discomfort and loose stools. Her symptoms got worse over the weekend and she was seen in the emergency department late Saturday/early Saturday morning with complaints of epigastric and right upper quadrant pain, poor appetite, and watery diarrhea. Potassium was 2.[address] of the abdomen and pelvis did not show any acute findings. She felt better with supportive care and was discharged home with Bentyl and Zofran. Unfortunately she is feeling worse with increasing diarrhea and ongoing abdominal pain. She had 1 episode of emesis in the emergency department but she believes that is due to the morphine that she was given. She denies fever, chills, sweats, chest pain, shortness of breath, cough, hematemesis, melena, hematochezia, and dysuria. She denies sick contacts. She has not been on any recent antibiotics. She has no history of peptic ulcers, gallbladder disease, or pancreatitis. It should be noted however that she was started on Mounjaro a couple of months ago and she reports tolerating that well without GI symptoms. Her dose was increased from 2.5 mg to 5 mg 1 month ago and her last injection was about a week ago. In the ED: She was afebrile on arrival with stable vital signs. Labs were significant for WBC count of 7.8, hemoglobin 14.1, sodium 139, potassium 3.2, BUN 5, creatinine 0.70, lipase 95. Urinalysis was unremarkable. Stool was negative for C diff. CT of the abdomen and pelvis showed fluid content in the right side of the colon in the distal ileal loops with slight dilatation of the small bowel and bilateral ovarian cyst. She is not feeling much better after receiving IV fluids and antiemetics and she is being admitted in this setting for further treatment. Interval history 09/04/2023: patient with abdominal pain, and diarrhea, etiology is uncertian however today patient symptoms have improved, patient was started with clear liquids which she tolerated well, and advance to regular diet which she just ate, will monitor patient over night, and reassess in the morning, possible discharge home. today patient is able to tolerate her diet without any abdomen pain, nausea or vomiting, patient is clinically stable, will discharge patient home today. Time Spent with Patient Time attestation: Total time spent providing and/or coordinating discharge services: Exam Narrative: General: patient is comfortable NAD HEENT: eyes are clear nonicteric, normocephalic, atraumatic. Oral mucosa moist. ABD: obese SKIN: no obevious rash EXTREMITIES: no edema NEURO:A&O grossly intact PSYCH: Pleasant and cooperative with normal mood and affect DS: Data Data Completed and Pending Labs on day of discharge: Labs from last 24 hours 09/05/23 05:53 WBC 4.8 RBC 3.96 L Hgb 11.8 L Hct 35.3 L MCV 89.1 MCH 29.8 MCHC 33.4 RDW 12.4 Plt Count 213 MPV 9.3 Sodium 141 Potassium 3.9 Chloride 111 H Carbon Dioxide 25 Anion Gap 5 BUN 3 L Creatinine 0.60 L Estim Creat Clear Calc 111 Estimated GFR > 60 Glucose 84 Calcium 8.3 L Magnesium 1.8 Total Bilirubin 0.5 AST 15 ALT 13 Alkaline Phosphatase 53 Total Protein 6.0 L Albumin 3.2 L
== END 2023-09-05 13:40 | disposition home or self-care (01) ==
LOC: ANHED 15:44 → ANH3MEDSUR 09-05 11:24 → ANH2MED 09-09 07:37 → ANH3MEDSUR 09-09 07:37
PROVIDERS: Emergency Medicine; Physician Assistant; Admitting Provider Internal Medicine; Emergency Provider Emergency Medicine; PCP Physician Assistant Medical; Visit Provider Family Medicine
DX: K52.9 Noninfective gastroenteritis and colitis, unspecified (principal); E87.6 Hypokalemia; N83.201 Unspecified ovarian cyst, right side; N83.202 Unspecified ovarian cyst, left side; I10 Essential (primary) hypertension; I25.10 Atherosclerotic heart disease of native coronary artery without angina pectoris; I25.2 Old myocardial infarction; E78.5 Hyperlipidemia, unspecified; R73.03 Prediabetes; L40.50 Arthropathic psoriasis, unspecified; L40.9 Psoriasis, unspecified; F17.290 Nicotine dependence, other tobacco product, uncomplicated; Z79.85 Long-term (current) use of injectable non-insulin antidiabetic drugs; Z79.02 Long term (current) use of antithrombotics/antiplatelets; Z79.82 Long term (current) use of aspirin; Z95.5 Presence of coronary angioplasty implant and graft
CPT/HCPCS: 36415; 74177; 80053; 81003; 83690; 83735; 85025; 85027; 87493; 96361; 96374; 96375; 96376; 99285; A9270; G0378; J2270; J2405; J7030; Q9967

== ENCOUNTER 2024-08-10 08:16 | Emergency (ER) | payer OTHER, SELFPAY ==
--- NOTE | ~2024-08-10 | CT_ITS ---
EXAMINATION: CT lumbar spine wo con DATE: 08/10/2024 09:13 INDICATION: Worsening lumbar spine pain post fall TECHNIQUE: Computed tomography (CT) of the lumbar spine was performed without intravenous contrast. A utomated exposure control and iterative reconstruction technique were employed. The dose-length produ ct was 320.77 mGy-cm. COMPARISON: None FINDINGS: A degree lumbar levocurvature. Sagittal alignment is normal. Vertebral body heights are nor mal. No fracture. Moderate disc height loss with vacuum phenomena at L5-S1. Paravertebral soft tissue s are unremarkable. Moderate bilateral sacroiliac osteoarthritis. The following disc levels are speci fically discussed: T12-L1: There is mild bilateral facet joint osteoarthritis. There is no neural foraminal stenosis. Th ere is no central canal stenosis. L1-L2: There is mild bilateral facet joint osteoarthritis. There is no neural foraminal stenosis. The re is no central canal stenosis. L2-L3: Disc is mildly bulging There is mild bilateral facet joint osteoarthritis. There is minimal bi lateral neural foraminal stenosis. There is minimal central canal stenosis. L3-L4: Disc is bulging. There is mild bilateral facet joint osteoarthritis. There is mild left and mi nimal right neural foraminal stenosis. There is minimal central canal stenosis. L4-L5: Disc is bulging. There is mild to moderate bilateral facet joint osteoarthritis. There is mild bilateral neural foraminal stenosis. There is mild central canal stenosis. L5-S1: Posterior disc osteophyte complex. There is moderate bilateral facet joint osteoarthritis. The re is mild right and moderate left neural foraminal stenosis. There is mild central canal stenosis. IMPRESSION: 1. Lumbar spondylosis, moderate at L5-S1 and otherwise mild. Reviewed, dictated and finalized at location A.
[2024-08-10 08:24] VITALS: BP 116/88; PULSE 91; RESP 19; TEMP 36.8; O2SAT 100
--- OUTSIDE RECORDS SUMMARY | 2024-08-10 08:31 | XMS_ITS | Encounter Summary ---
Author Organization [facility] Healthcare Address [address] [place] [address] Care Team Providers Care Baking Powder Mixer Name Role Phone Foreign Sykes MD Primary Care Provider [phone] Sultan Johana Fox MD Unavailable [phone] Blaine Link Primary Care Provider [phone] Encounter Details Date Type Department Care Team (Late st Contact Info) Description 02/23/2020 Telephone [facility] Radiology [address] [place] [address] Antonia Cole MD [address] [place] [address] Social History Tobacco Use Types Packs/Day Years Used Date Smoking Tobacco: Former Cigarettes 0.5 23.1 S tarted: 07/13/2001 Vaping Smokeless Tobacco: Never Alcohol Use Standard Drinks/Week Comments Yes 0 (1 standard drink = 0.6 oz pur e alcohol) occasionally PHQ-2 Answer Date Recorded PHQ-2 Total Score (If total score is 3 or more points, staff should administer the PHQ-9) 0 01/21/2020 Comments Unknown Sex and Gender Information Value Date Recorded Sex Assigned at Not on file Legal 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 Gender Identity Not on file Sexual Orientation Straight 01/18/2020 7: 52 AM MUSIC PUBLISHER 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
--- OUTSIDE RECORDS SUMMARY | 2024-08-10 08:31 | XMS_ITS | Clinical Summary ---
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 Gender Identity Not on file Sexual Orientation Not on file Plan of Treatment Health Maintenance Due Date Last Done Comments Hepatitis C Virus (HCV) Screening 1985 TdaP Immunization 1985 Hepatitis B Immunization (1 of 3 - 19+ 3-dose series) 05/27/2002 Pap Smear 05/27/2004 Cervical Cancer Screening (CCS) 05/27/2013 HPV/Cotest 05/27/2013 Discussion re Starting/Frequency of Mammograms 2023 Influenza Immunization (#1) 2023 SARS-COV-2 Immunization ( season) 2023 Respiratory Syncytial Virus (RSV) Immunization (Adult) (1 - 1-dose 75+ series) 05/27/2058 DTaP/Tdap/Td Immunization Discontinued 1997, 11/07/1988, 02/15/1986, Additional history exists Meningococcal Immunization (ACWY) Aged Out No longer eligible based on patient's age to complete this topic Pneumococcal Immunization Combined Aged Out No longer eligible based on patient's age to complete this topic Rotavirus Immunization Aged Out No lo nger eligible based on patient's age to complete this topic
--- OUTSIDE RECORDS SUMMARY | 2024-08-10 08:31 | XMS_ITS | Clinical Summary ---
Author Organization [facility] [address] [facility] Address [address] [place] [address] Care Team Providers Care Brokerage Coordinator Name Role Phone Sultan Johana Fox MD Unavailable [phone] Blaine Link Primary Care Provider [phone] Allergies Active Allergy Reactions Criticality Noted Date Comments Amoxicillin-Pot Clavulanate Other (See comments) Low 07/08/2018 Yeast infection under arm pit Pt.is allergic to Augmentin Duloxetine Other (See comments) Low 01/06/2024 GI Intolerance Gabapentin Dizziness Low 01/06/2024 Pregabalin Dizziness Low 01/06/2024 Medications clopidogreL (PLAVIX) 75 mg tablet Take 1 tablet (75 mg total) by mouth daily 90 tablet 3 023 Active Additional Information Patient not taking.Reported on 08/03/2024 metoprolol XL (TOPROL-XL) 50 mg extended release tabletIndication s:Coronary artery disease involving la posta coronary artery of la posta heart without angina pectoris Take 1 tablet (50 mg total) by mouth daily 45 tablet 3 023 Active Additional Information Patient not taking.Reported on 08/03/2024 aspirin 81 mg enteric coated tablet Take 1 tablet (81 mg total) by mouth daily 30 tablet 11 023 Active atorvastatin (LIPITOR) 80 mg tablet Take 1 tablet (80 mg total) by mouth daily 30 tablet 3 023 Active Additional Information Patient not taking.Reported on 08/03/2024 nitroglycerin (NITROSTAT) 0.[address] 1 tablet (0.4 mg total) under the tongue every 5 (five) minutes as needed Active potassium chloride ER 20 mEq CR tablet Take 1 tablet (20 mEq total) by mouth Active apremilast 10 mg (4)-20 mg (4)-30 mg (47) tablets,dose pack Take 1 tablet by mouth 2 (two) times a day Active diclofenac sodium (VOLTAREN) 1 % gelIndications:A cute pain of left knee Apply 4 g topically 4 (four) times a day 100 g 024 Active lidocaine 5 % creamIndications :Acute pain of left knee,Acute pain of right knee Apply 1 Application topically 4 (four) times a day 45 g 1 Active predniSONE (DELTASONE) 10 mg tabletIndication s:Psoriatic arthritis (HCC) 60mg times 3 days, 40mg times 3 days, 20mg times 3 days, 10mg times 3 days 39 tablet 025 Active Additional Information Patient not taking.Reported on 08/03/2024 famotidine (PEPCID) 20 mg tabletIndication s:Psoriatic arthritis (HCC) Take 1 tablet (20 mg total) by mouth 2 (two) times a day for 14 days 28 tablet 025 Active Additional Information Patient not taking.Reported on 08/03/2024 traMADoL (ULTRAM) 50 mg tabletIndication s:Cervical spondylosis with radiculopathy Take 1 tablet (50 mg total) by mouth every 8 (eight) hours as needed for pain Must Last 30 Days 65 tablet 025 Active tirzepatide (Mounjaro) 5 mg/0.5 mL pen injector injectionIndicat ions:DM type 2 with diabetic dyslipidemia (HCC) Inject 0.5 mL (5 mg total) under the skin every 7 days 2 mL 1 025 Active ixekizumab (TALTZ) auto-injectorInd ications:Moderat e to Severe Plaque Psoriasis,Non-Ra diographic Axial Spondyloarthriti s,Psoriatic Arthritis Inject 1 mL (80 mg total) under the skin every 14 (fourteen) days for 6 doses 6 mL 024 2024 Discontinued secukinumab (COSENTYX SENSOREADY) pen injectorIndicati ons:Psoriatic arthritis (HCC) Inject 2 mL (300 mg total) under the skin every 28 (twenty-eight) days 6 mL 025 2024 Discontinued secukinumab (COSENTYX) 300 mg/2 mL (150 mg/mL) pen injector subcutaneous syringeIndicatio ns:Psoriatic arthritis (HCC) Inject 2 mL (300 mg total) under the skin once a week for 5 weeks - LOADING DOSE 10 mL 025 2024 Discontinued tirzepatide (Mounjaro) 5 mg/0.5 mL pen injector injectionIndicat ions:DM type 2 with diabetic dyslipidemia (HCC) Inject 0.5 mL (5 mg total) under the skin every 7 days 2 mL 1 025 2024 Discontinued(R eorder) traMADoL (ULTRAM) 50 mg tabletIndication s:Cervical spondylosis with radiculopathy Take 1 tablet (50 mg total) by mouth every 8 (eight) hours as needed for pain Must Last 30 Days 75 tablet 025 2024 Discontinued(R eorder) tirzepatide (Mounjaro) 5 mg/0.5 mL pen injector injectionIndicat ions:DM type 2 with diabetic dyslipidemia (HCC) Inject 0.5 mL (5 mg total) under the skin every 7 days 2 mL 1 025 2024 Discontinued(R eorder) Active Problems Problem Noted Date Diagnosed Date Immunosuppression 04/04/2023 DM type 2 with diabetic dyslipidemia 01/09/2023 Assessment & Plan (04/28/2024 10:07 AM EDITING CLERK): Chronic stable Continue Jose Will obtain A1c today Assessment & Plan (01/22/2024 3:58 PM EDITING CLERK): Chronic stable Continue Mounjaro Assessment & Plan (10/16/2023 5:10 PM CDT): Chronic stable Continue Mounjaro Assessment & Plan (07/15/2023 4:23 PM CDT): Chronic D/c jardiance Start mounjaro Assessment & Plan (01/09/2023 5:00 PM EDITING CLERK): Chronic Not at goal Start jardiance 10mg Unstable angina 08/16/2022 Moderate episode of recurrent major depressive d isorder 11/14/2021 Assessment & Plan (07/15/2023 4:19 PM CDT): Chronic and not well controlled D/c sertraline Start cymblata Assessment & Plan (01/09/2023 5:06 PM EDITING CLERK): Chronic not well controlled D/c wellbutrin Start zoloft 25mg Assessment & Plan (10/09/2022 9:53 AM CDT): Chronic uncontrolled Start wellbutrin xl 150mg Assessment & Plan (11/14/2021 5:06 PM CDT): Chronic Start cymbalta titration Carpal tunnel syndrome, right 10/09/2021 Assessment & Plan (11/14/2021 5:00 PM CDT): Chronic Persistent Failed splint Refer to ortho hand Assessment & Plan (10/09/2021 12:29 PM CDT): Chronic Order cock up wrist splint Chronic right shoulder pain 10/09/2021 Assessment & Plan (10/09/2021 12:27 PM CDT): Chronic > 6mo Order xray right shoulder Cervical spondylosis with radiculopathy 08/02/19 Assessment & Plan (10/16/2023 5:12 PM CDT): Chronic persistent waxes and wane Continue tramadol Assessment & Plan (04/03/2022 3:02 PM EDITING CLERK): Chronic not well controlled persistent symptoms Increase tramadol to 120 tablets for 30 day. Assessment & Plan (08/01/2021 5:14 PM CDT): Chronic uncontrolled cervical traction device evaluation of physical therapy Refer to meena cazares and treat Order emg/ncs jairo ue Trapezius muscle spasm 08/01/2021 Assessment & Plan (04/16/2023 4:21 PM EDITING CLERK): Chronic recurrent with acute jairo exacerbation New start Topical lidocaine To use heat To use tizanidine Assessment & Plan (08/01/2021 4:42 PM CDT): chornic and worsening D/c flexeril Start zanaflex 4mg tid prn Coronary artery disease invo lving la posta coronary artery of la posta heart without angina pectoris 05/23/2021 Assessment & Plan (01/09/2023 10:55 PM EDITING CLERK): Chronic stable and well controlled Medically treated with asa, plavix metoprolol and nitrogylcerin Continue f/u with caridiology Assessment & Plan (07/09/2022 9:28 AM CDT): Chronic and currently risk management treatment Refer to [facility] cardiology mica anthony. Assessment & Plan (05/23/2021 2:20 PM CDT): Chronic condition Recently found to have an acute UT cardiac catheterization demonstrated single- vessel CAD no stenting patient was placed on isosorbide which is making her headaches worse. Continue follow-up with Cardiology. Lumbosacral radiculopathy at S1 02/01/2021 Assessment & Plan (07/09/2022 9:38 AM CDT): Chronic and not well Controlled D/c tramadol Start tramadol er 300mg qd Assessment & Plan (02/20/2021 10:15 AM EDITING CLERK): Chronic conditon Refer to dr valdovinos. Mo bap. D/c norco Start percocet 5/325mg q6 hr prn Assessment & Plan (02/01/2021 3:34 PM EDITING CLERK): Chronic Start norco 5/325mg q8 hr prn #30 Awaiting evaluatio of neurosurgical Psoriatic arthritis 04/25/2020 Assessment & Plan (04/28/2024 10:13 AM EDITING CLERK): Chronic with acute exacerbation Start pred taper. Start zofran with nausea secondary to prednisone Start pepcid for 2 weeks Kenolog 80mg IM Continue tramadol Assessment & Plan (01/06/2024 9:50 AM EDITING CLERK): Chronic with likely acute exaerbation Elevated sed rate. Joint pain and swelling Give kenolog 80mg IM Assessment & Plan (10/09/2022 9:51 AM CDT): Chronic persistent not well controlled but will be seeing rheumatolgoy Assessment & Plan (04/03/2022 3:00 PM EDITING CLERK): Chronic condition persistent symptoms Increase tramadol 50 mg 1-2 tablets b.i.d. p.r.n. 120 Assessment & Plan (10/09/2021 12:34 PM CDT): Chronic uncontrolled Start diclofenac ec 75 Assessment & Plan (07/24/2021 4:49 PM CDT): Chronic condition with acute exacerbation Start prednisone taper. Psoriasis 10/16/2019 Assessment & Plan (10/16/2019 9:03 AM CDT): Refer to rheumatology. Refer to [facility] Start olux foam Precordial chest pain 07/14/2019 Assessment & Plan (07/14/2019 9:56 AM CDT): EKG today shows normal sinus rhythm, minor T-wave changes in 1 and aVL. Will get an echo Doppler study to assess the left ventricular systolic function and to look for any localized wall motion abnormalities. Stress echo to look for myocardial ischemia Family history of coronary artery disease 2019 Assessment & Plan (07/14/2019 9:56 AM CDT): Father has had coronary artery bypass surgery. A half brother underwent coronary stenting. Dyslipidemia 02/13/2019 Assessment & Plan (04/28/2024 10:11 AM EDITING CLERK): Chronic stable Ldl goal 55 Continue atorvastatin Assessment & Plan (10/09/2022 9:49 AM CDT): Chronic stable and well controlled Continue with atorvastatin Assessment & Plan (04/25/2020 8:05 AM EDITING CLERK): Chronic stable Continue lifestyle modifications. Pain liver in the lipid in 3 months Assessment & Plan (10/16/2019 9:10 AM CDT): Well controlled on current regimen, no rx changes needed. Continue lifestyle modifications Assessment & Plan (07/14/2019 10:01 AM CDT): On 01/10/2019 the total cholesterol is 193, HDL 29, triglyceride 171, LDL 133. The 10 year risk cannot be calculated as she is not between 40-79. Assessment & Plan (02/13/2019 11:14 AM EDITING CLERK): Refer to cardiology for stress test. Chronic daily headache 01/01/2019 Assessment & Plan (05/23/2021 12:52 PM CDT): Chronic and worse with imdur Start flexeril 0.5mg bid prn Assessment & Plan (03/24/2021 12:27 PM EDITING CLERK): Chronic uncontrolled with current 10 day exacerbation Start pred 20mg for 3 days 10mg for 3 days Start flexeril 5 mg tid prn #60 Start tramadol 1-2 q8 hrs prn #60 D/c percocet Essential (primary) hypertension 12/04/2016 Assessment & Plan (01/22/2024 3:58 PM EDITING CLERK): Chronic stable and well controlled Continue metoprolol Assessment & Plan (10/16/2023 5:11 PM CDT): Chronic stable and well controlled Continue metoprolol Assessment & Plan (10/09/2022 9:50 AM CDT): Chronic stable and well controlled Continue amlodipine and metoprolol Assessment & Plan (04/03/2022 3:01 PM EDITING CLERK): Chronic condition stable well controlled continue amlodipine lisinopril metoprolol for Assessment & Plan (10/09/2021 12:35 PM CDT): Chronic conditiion Stable and well contreolled Continue amlodipine and lisinopril metoprolol Assessment & Plan (07/24/2021 4:50 PM CDT): Chronic conditions which has been stable but today is elevated most likely secondary to pain. Will continue monitor closely as we get her pain under control to make sure this resumes to normal level. Otherwise continue with amlodipine metoprolol and lisinopril Assessment & Plan (05/23/2021 2:18 PM CDT): Chronic condition stable well controlled continue lisinopril Assessment & Plan (02/20/2021 10:16 AM EDITING CLERK): Chronic uncontrolled Patient to monitor at home for 2 weeks and call with avg >140/90 Assessment & Plan (04/25/2020 8:05 AM EDITING CLERK): Chronic stable Continue current regimen Assessment & Plan (10/16/2019 9:10 AM CDT): Well controlled on current regimen, no rx changes needed. Continue lifestyle modifications Assessment & Plan (07/14/2019 9:54 AM CDT): Blood pressure 150/100. Salt restriction. Continue the current regimen. Will add a diuretic if the blood pressure remains elevated. Lumbago 11/19/2016 Assessment & Plan (07/14/2019 9:53 AM CDT): Status post back surgery June 2017. 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 Continue lifestyle modifications Encounters Date Type Department Care Team Description 08/03/2024 3:00 PM CDT Office Visit [facility] at [address] [address] Blaine Link PA DM type 2 with diabetic dyslipidemia (HCC) (Primary Dx); Lumbosacral radiculopathy at S1; 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 from Last 3 Months Immunizations Immunization Administration Dates Next Due DTP 11/07/1988, 6,01/22/1984,1983, 4 Influenza, Unspecified 12/24/2023(Deferr ed: Patient Refused),01/09/2023(Deferred: Patient decision),11/02/2022(Deferred: Patient Refused),04/03/2022(Deferred: Patient Refused),11/02/2021(Deferred: Patient Refused),11/02/2021(Deferred: Patient decision) MMR 11/15/1992,06/04/1985 OPV 11/07/1988, 6,01/22/1984,1983, 4 Td, adsorbed 06/09/1997 Surgical History Surgery Date Site/Laterality Comments MI TONSILLECTOMY PRIMARY/SEC ONDARY <AGE 10 Tonsillectomy - (Added by TW Conv) BACK SURGERY CARDIAC CATHETERIZATION SPINE SURGERY Medical History Medical History Date Comments Hyperlipidemia Lumbago Psoriasis Hypertension Gestational diabetes Arthritis Heart attack (HCC) 05/18/2021 History of cardiac cath Small bowel obstruction (HCC) 09/2023 Family History Medical History Relation Name Comments Heart attack Brother 1 Brother and dad Heart disease Brother 1 Brother and dad Migraines Brother 2 No Known Problems Brother 3 No Known Problems Brother 4 No Known Problems Daughter 1 No Known Problems Daughter 2 Arthritis Father Dad Colon cancer Father Dad Heart disease Father Dad Hypertension Father Dad Psoriasis Father Dad B12 def Mother Mom COPD Mother Mom Psoriasis Mother Mom psoriatic arthritis Mother Mom Migraines Sister 1 No Known Problems Sister 2 Lupus Sister 3 Relation Name Status Comments Brother 1 Brother and dad Alive Brother 2 Alive Brother 3 Alive Brother 4 Alive Daughter 1 Alive Daughter 2 Alive Father Dad Alive Mother Mom Sister 1 Alive Sister 2 Alive Sister 3 Alive Social History Tobacco Use Types Packs/Day Years Used Date Smoking Tobacco: Former Cigarettes 0.5 18.3 0 07/13/2001 - 11/08/2019 Vaping Smokeless Tobacco: Never Tobacco Cessation:Counseling Given: Not Answered Alcohol Use Standard Drinks/Week Comments Yes 0 (1 standard drink = 0.6 oz pur e alcohol) occasionally AUDIT-C Answer Date Recorded Q1: How often do you have a drink containing alcohol? Never 04/28/2024 Q2: How many drinks containi ng alcohol do you have on a typical day when you are drinking? Patient does not drink Q3: How often do you have si x or more drinks on one occasion? Never 04/28/2024 PHQ-2 Answer Date Recorded PHQ-2 Total Score (If total score is 3 or more points, staff should administer the PHQ-9) 1 04/28/2024 Personal Safety Answer Date Recorded Have you ever been in or are you currently in a harmful physical or emotional relationship or is someone making you feel afraid or unsafe? 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 Not on file Not on file Not on file Obstetrics History Last Filed Vital Signs Vital Sign Reading Time Taken Comments Blood Pressure 120/84 08/03/2024 3:27 PM CDT Pulse 89 08/03/2024 3:27 PM CDT Temperature 36.1 C (97 F) 08/03/2024 3:27 PM CDT Respiratory Rate 16 08/03/2024 3:27 PM CDT Oxygen Saturation 98% 08/03/2024 3:27 PM CDT Inhaled Oxygen Concentration - - Weight 68.4 kg (150 lb 14.4 oz) 08/03/2024 3:27 PM CDT Height 175.3 cm (5' 9.02) 08/03/2024 3:27 PM CD T Body Mass Index 22.27 08/03/2024 3:27 PM CDT Plan of Treatment Health Maintenance Due Date Last Done Comments Breast Cancer Screening-Mammogram 1983 Cervical Cancer Screening 1983 Dilated Eye Exam 1983 Foot Exam 1983 DTaP/Tdap/Td Vaccine (6 - Tdap) 06/10/1997 06/09/1997, 11/07/1988, 02/15/1986, Additional history exists Hepatitis B Screening 05/27/2001 Pneumococcal vaccine <65 (1 of 2 - PCV) 05/27/2002 Zoster Vaccine (1 of 2) 05/27/2002 Hemoglobin A1C 01/15/2024 07/15/2023, 1110/2022, 01/21/2020, Additional history exists Lipid Panel 07/14/2024 07/15/2023, 0609/2022, 08/17/2022, Additional history exists eGFR 07/14/2024 07/15/2023, 02/0 08/2023, 03/11/2023, Additional history exists Influenza Vaccine (Season Ended) 2024 Albumin Creatinine Ratio, Urine 01/21/2025 01/22/2024 Regular Well Visit/Exam 18-64 01/21/2025 01/22/2024, 01/21/2020, 02/13/2019 Depression Screening 04/28/2025 04/28/2024, 07/15/2023, 04/03/2022, Additional history exists Hepatitis C Screening Completed 01/18/2020 HPV Vaccines Aged Out No longer eligi ble based on patient's age to complete this topic Varicella Vaccines Discontinued Medical Devices Implanted Type Area Trim Technician Device Identifier Shelf Expiration Date Model / Serial / Lot [employer] Angio-Seal Vip 6fr Closere Device [id number] - [id number] Implanted:Qty: 1 on 08/17/2022 by Driss Burleson MD at [facility] [employer] Brian 03/03/2023 [id number] / / [id number] [employer] Stent Coronary De Rx Cocr Ors Msn 3.0x40mm [id number] - [id number] Implanted:Qty: 1 on 08/17/2022 by Driss Burleson MD at [facility] [employer]ent [employer] 06/10/2024 [id number] / / [id number] Procedures Procedure Name Priority Date/Time Associated Diagnosis Comments ALBUMIN CREATININE RATIO, URINE Routine 01/22/2024 3:20 PM EDITING CLERK DM type 2 with diabetic dyslipidemia (HCC) EGFR Routine 07/15/2023 6:53 AM CDT DM type 2 with diabetic dyslipidemia (HCC) HEMOGLOBIN A1C Routine 07/15/2023 6:53 AM CDT DM type 2 with diabetic dyslipidemia (HCC) LIPID PANEL Routine 07/15/2023 6:53 AM CDT DM type 2 with diabetic dyslipidemia (HCC) HEPATITIS C ANTIBODY Routine 01/18/2020 10:42 AM EDITING CLERK Immunosuppression from Last 3 Months or Most Recently Relevant to Health Maintenance Results * Albumin Creatinine Ratio, Urine (01/22/2024 3:20 PM EDITING CLERK) Albumin Ur 29.5 mg/L Comment: Interpretive Data No reference range established. Current interpretive data was last revised 2018. Creatinine Ur 219.0 mg/dL RUBIN Comment: Interpretive Data No reference range established. Current interpretive data was last revised 2018. Albumin Creatinine Ratio, Ur 13 1 - 29 mg/g RUBIN Urine 01/22/2024 3:20 PM EDITING CLERK 01/22/2024 5:47 PM EDITING CLERK Blaine PENA LAB URINE ORDERABLES Final Resu lt Performing Organization Address [facility] Co de Phone Number RUBIN [address] [address] * eGFR (07/15/2023 6:53 AM CDT) eGFR >90 >=60 mL/min/1. 73 m2 Comment: Interpretive Data Reference Interval Normal >/= 90 mL/min/1.73m2 Mildly decreased* 60 - 89 mL/min/1.73m2 Mildly to moderately decreased 45 - 59 mL/min/1.73m2 Moderately to severely decreased 30 - 44 mL/min/1.73m2 Severely decreased 15 - 29 mL/min/1.73m2 Kidney Failure < 15 mL/min/1.73m2 *Relative to young adult level Estimated glomerular filtration rate is determined by the 2020 CKD-EPI equation recommended by the National Kidney Foundation (A Unifying Approach to GFR Estimation: Recommendations of the NKF-ASK Task Force on Reassessing the Inclusion of Race in Diagnosing Kidney Disease, JASN 1). The CKD-EPI equation should not be used for patients with unstable renal function and has not been validated in children and those over 70. Current interpretive data was last reviewed 2021. Blood 07/15/2023 6:53 AM CDT 07/15/2023 7:09 AM CDT us Blaine PENA LAB BLOOD ORDERABLES Final Resu lt Performing Organization Address City/[facility]/ZIP Co de Phone Number RUBIN [address] [place] [address] * (ABNORMAL) Hemoglobin A1c (07/15/2023 6:53 AM CDT) Hgb A1C 6.5(H) 4.0 - 5.6 % Estimated Average Glucose 140 mg/dL RUBIN VERMA Comment: The ADA recommends reporting an estimated Average Glucose (eAG) with all Hemoglobin A1c results using the equation derived from a study of 507 normal and diabetic adults. Minority populations were underrepresented and children were not included. (Diabetes Care 31:6176-7336, 2008). The eAG is not equivalent to a fasting glucose. Blood 07/15/2023 6:53 AM CDT 07/15/2023 7:09 AM CDT us Blaine PENA LAB BLOOD ORDERABLES Final Resu lt RUBIN VERMA [address] [facility] Department of Laboratories [place], [place] [id number] * (ABNORMAL) Lipid panel (07/15/2023 6:53 AM CDT) Cholesterol 123 30 - 199 mg/dL Comment: Interpretive Data Ages < or = 19 years Acceptable: <170 mg/dL Borderline high: 170-199 mg/dL High: >or= 200 mg/dL Ages > or = 20 years Desirable: <200 mg/dL Borderline high: 200-239 mg/dL High: >or= 240 mg/dL Literature References: 1. Expert Panel on Integrated Guidelines for Cardiovascular Health and Risk Reduction in Children and Adolescents. Pediatrics 2011;128:S213 2. NCEP Expert Panel. Circulation 2004;110:227 Current Interpretive Data was last revised on 2017. Triglycerides 117 <=149 mg/dL RUBIN VERMA Comment: Interpretive Data Ages < or = 9 years Acceptable: <75 mg/dL Borderline high: 75-99 mg/dL High: >or= 100 mg/dL Ages 10 to 20 years Acceptable: <90 mg/dL Borderline high: 90-129 mg/dL High: >or= 130 mg/dL Ages > or = 20 years Desirable: <150 mg/dL Borderline high: 150-199 mg/dL High: 200-499 mg/dL Very high: >or= 499 mg/dL Literature References: 1. Expert Panel on Integrated Guidelines for Cardiovascular Health and Risk Reduction in Children and Adolescents. Pediatrics 2011;128:S213 2. NCEP Expert Panel. Circulation 2004;110:227 Current Interpretive Data was last revised on 2017. HDL 28(L) >=40 mg/dL RUBIN VERMA Comment: Interpretive Data Ages < or = 19 years Acceptable: >45 mg/dL Borderline low: 40-45 mg/dL Low: <40 mg/dL Ages > or = 20 years Desirable: >or= 60 mg/dL Low: <40 mg/dL Literature References: 1. Expert Panel on Integrated Guidelines for Cardiovascular Health and Risk Reduction in Children and Adolescents. Pediatrics 2011;128:S213 2. NCEP Expert Panel. Circulation 2004;110:227 Current Interpretive Data was last revised on 2017. LDL, calculated 72 <=129 mg/dL RUBIN VERMA Comment: Interpretive Data Ages < or = 19 years Acceptable: <110 mg/dL Borderline high: 110-129 mg/dL High: >or= 130 mg/dL Ages > or = 20 years Optimal: <100 mg/dL Near optimal: 100-129 mg/dL Borderline high: 130-159 mg/dL High: >160 mg/dL Literature References: 1. Expert Panel on Integrated Guidelines for Cardiovascular Health and Risk Reduction in Children and Adolescents. Pediatrics 2011;128:S213 2. NCEP Expert Panel. Circulation 2004;110:227 Current Interpretive Data was last revised on 2017. Non-HDL Cholesterol 95 mg/dL RUBIN VERMA Comment: Interpretive Data Ages < or = 19 years Acceptable: <120 mg/dL Borderline high: 120-144 mg/dL High: >145 mg/dL Ages > or = 20 years When triglycerides are >200 mg/dL, Non-HDL cholesterol is a secondary target of therapy with treatment goals that are 30 mg/dL greater than the LDL cholesterol target. Literature References: 1. Expert Panel on Integrated Guidelines for Cardiovascular Health and Risk Reduction in Children and Adolescents. Pediatrics 2011;128:S213 2. NCEP Expert Panel. Circulation 2003;110:227 Current Interpretive Data was last revised on 2017. Chol/HDL ratio 4 RUBIN VERMA Blood 07/15/2023 6:53 AM CDT 07/15/2023 7:09 AM CDT us Blaine PENA LAB BLOOD ORDERABLES Final Resu lt RUBIN [address] [facility] Department [place] [address] * Hepatitis C antibody (01/18/2020 10:42 AM EDITING CLERK) Hep C Ab Nonreactive Nonreactive [facility] Comment:Antibodies to HCV no t detected. Does NOT exclude the possibility of recent exposure to HCV. Blood specimen (specimen) 01/18/2020 10:42 AM EDITING CLERK 01/18/2020 1:05 PM EDITING CLERK us Antonia Cole MD LAB MICROBIOLOGY - GENERAL O RDERABLES Edited Result - Final [facility] Department [place] [address] from Last 3 Months or Most Recently Relevant to Health Maintenance Insurance [facility] H[facility]/PP[facility] Address[facility] [address] [place] [address] [facility] CHOICE [facility] H[facility]/PPO Address: [address] [place] [address] [facility] CHOICE [facility] H[facility]/PPO Address: [address] [place] [address] Advance Directives For more information, please contact: [phone] * Full Code (Latest Code Status on File) Date Activated Date Inactivated Comments 08/16/2022 5:46 PM 08/18/2022 6:21 PM Care Teams Brokerage Coordinator Relationship Specialty Start Date End Date Blaine Link PA [address] [facility] [place] [address] PCP - General Family Medicine 11/14/21 Sultan Johana Fox MD [address] [facility] [place] [address] Stereo Equipment Salesperson Cardiovascular Disease 07/31/19
--- OUTSIDE RECORDS SUMMARY | 2024-08-10 08:31 | XMS_ITS | Referral Summary ---
Author Organization [facility] [address] [facility] Address [address] [place] [address] Care Team Providers Care Lace Inspector Name Role Phone Sultan Johana Fox MD Unavailable [phone] Blaine Link Primary Care Provider [phone] Encounters Date Type Department Care Team Description 08/03/2024 3:00 PM CDT Office Visit [facility] [place] [address] [facility] [address] [place] [phone] Blaine Link PA DM type 2 with diabetic dyslipidemia (HCC) (Primary Dx); Lumbosacral radiculopathy at S1; 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 from Last 3 Months Allergies Active Allergy Reactions Criticality Noted Date [...] extended release tabletIndication s:Coronary artery disease involving osage coronary artery of osage heart without angina pectoris Take 1 tablet [...] tongue every 5 (five) minutes as needed 023 Active potassium chloride ER 20 mEq CR tablet Take 1 tablet (20 mEq total) by mouth 024 Active apremilast 10 mg (4)-20 mg (4)-30 [...] (four) times a day 45 g 1 024 Active predniSONE (DELTASONE) 10 mg tabletIndication s:Psoriatic [...] 01/09/2023 Assessment & Plan (04/28/2024 10:07 AM OPTICAL LENS MANUFACTURING TECH): Chronic stable Continue Jose Will obtain A1c today Assessment & Plan (01/22/2024 3:58 PM OPTICAL LENS MANUFACTURING TECH): Chronic stable Continue Mounjaro Assessment & Plan (10/16/2023 5:10 PM CDT): Chronic stable Continue Mounjaro Assessment & Plan (07/15/2023 4:23 PM CDT): Chronic D/c jardiance Start mounjaro Assessment & Plan (01/09/2023 5:00 PM OPTICAL LENS MANUFACTURING TECH): Chronic Not at goal Start jardiance 10mg Unstable angina 08/16/2022 Moderate episode of recurrent major depressive d isorder 11/14/2021 Assessment & Plan (07/15/2023 4:19 PM CDT): Chronic and not well controlled D/c sertraline Start cymblata Assessment & Plan (01/09/2023 5:06 PM OPTICAL LENS MANUFACTURING TECH): Chronic not well controlled D/c wellbutrin Start [...] tramadol Assessment & Plan (04/03/2022 3:02 PM OPTICAL LENS MANUFACTURING TECH): Chronic not well controlled persistent symptoms Increase tramadol to 120 tablets for 30 day. Assessment & Plan (08/01/2021 5:14 PM CDT): Chronic uncontrolled cervical traction device evaluation of physical therapy Refer to meena cazares and treat Order emg/ncs jairo ue Trapezius muscle spasm 08/01/2021 Assessment & Plan (04/16/2023 4:21 PM OPTICAL LENS MANUFACTURING TECH): Chronic recurrent with acute jairo exacerbation New start Topical lidocaine To use heat To use tizanidine Assessment & Plan (08/01/2021 4:42 PM CDT): chornic and worsening D/c flexeril Start zanaflex 4mg tid prn Coronary artery disease invo lving osage coronary artery of osage heart without angina pectoris 05/23/2021 Assessment & Plan (01/09/2023 10:55 PM OPTICAL LENS MANUFACTURING TECH): Chronic stable and well controlled Medically treated with asa, plavix metoprolol and nitrogylcerin Continue f/u with caridiology Assessment & Plan (07/09/2022 9:28 AM CDT): Chronic and currently risk management treatment Refer to [facility] cardiology mica anthony. Assessment & Plan (05/23/2021 2:20 PM CDT): Chronic condition Recently found to have an acute WI cardiac catheterization demonstrated single- vessel CAD no stenting patient was placed on isosorbide which is making her headaches worse. Continue follow-up with Cardiology. Lumbosacral radiculopathy at S1 02/01/2021 Assessment & Plan (07/09/2022 9:38 AM CDT): Chronic and not well Controlled D/c tramadol Start tramadol er 300mg qd Assessment & Plan (02/20/2021 10:15 AM OPTICAL LENS MANUFACTURING TECH): Chronic conditon Refer to dr valdovinos. Mo bap. D/c norco Start percocet 5/325mg q6 hr prn Assessment & Plan (02/01/2021 3:34 PM OPTICAL LENS MANUFACTURING TECH): Chronic Start norco 5/325mg q8 hr prn #30 Awaiting evaluatio of neurosurgical Psoriatic arthritis 04/25/2020 Assessment & Plan (04/28/2024 10:13 AM OPTICAL LENS MANUFACTURING TECH): Chronic with acute exacerbation Start pred taper. Start zofran with nausea secondary to prednisone Start pepcid for 2 weeks Kenolog 80mg IM Continue tramadol Assessment & Plan (01/06/2024 9:50 AM OPTICAL LENS MANUFACTURING TECH): Chronic with likely acute exaerbation Elevated sed rate. Joint pain and swelling Give kenolog 80mg IM Assessment & Plan (10/09/2022 9:51 AM CDT): Chronic persistent not well controlled but will be seeing rheumatolgoy Assessment & Plan (04/03/2022 3:00 PM OPTICAL LENS MANUFACTURING TECH): Chronic condition persistent symptoms Increase tramadol 50 [...] 02/13/2019 Assessment & Plan (04/28/2024 10:11 AM OPTICAL LENS MANUFACTURING TECH): Chronic stable Ldl goal 55 Continue atorvastatin Assessment & Plan (10/09/2022 9:49 AM CDT): Chronic stable and well controlled Continue with atorvastatin Assessment & Plan (04/25/2020 8:05 AM OPTICAL LENS MANUFACTURING TECH): Chronic stable Continue lifestyle modifications. Pain liver [...] 40-79. Assessment & Plan (02/13/2019 11:14 AM OPTICAL LENS MANUFACTURING TECH): Refer to cardiology for stress test. Chronic daily headache 01/01/2019 Assessment & Plan (05/23/2021 12:52 PM CDT): Chronic and worse with imdur Start flexeril 0.5mg bid prn Assessment & Plan (03/24/2021 12:27 PM OPTICAL LENS MANUFACTURING TECH): Chronic uncontrolled with current 10 day exacerbation Start pred 20mg for 3 days 10mg for 3 days Start flexeril 5 mg tid prn #60 Start tramadol 1-2 q8 hrs prn #60 D/c percocet Essential (primary) hypertension 12/04/2016 Assessment & Plan (01/22/2024 3:58 PM OPTICAL LENS MANUFACTURING TECH): Chronic stable and well controlled Continue metoprolol Assessment & Plan (10/16/2023 5:11 PM CDT): Chronic stable and well controlled Continue metoprolol Assessment & Plan (10/09/2022 9:50 AM CDT): Chronic stable and well controlled Continue amlodipine and metoprolol Assessment & Plan (04/03/2022 3:01 PM OPTICAL LENS MANUFACTURING TECH): Chronic condition stable well controlled continue amlodipine [...] lisinopril Assessment & Plan (02/20/2021 10:16 AM OPTICAL LENS MANUFACTURING TECH): Chronic uncontrolled Patient to monitor at home for 2 weeks and call with avg >140/90 Assessment & Plan (04/25/2020 8:05 AM OPTICAL LENS MANUFACTURING TECH): Chronic stable Continue current regimen Assessment & [...] 07/17/2016 Assessment & Plan (02/20/2021 10:12 AM OPTICAL LENS MANUFACTURING TECH): Chronic worsening Refer to dr [facility]inos at [facility] Assessment & Plan (12/06/2020 11:17 AM CDT): Chronic with acute exacerbation kenolog 80mg im toradol 60mg im Start vicodin 5/325mg q6 hours prn #45 Start mdp Mri l/s spine Assessment & Plan (04/25/2020 8:05 AM OPTICAL LENS MANUFACTURING TECH): Chronic condition uncontrolled required increased medication regimen Increase tramadol 2 tabs tid prn Assessment & Plan (10/16/2019 9:11 AM CDT): Well controlled on current regimen, no rx changes needed. Continue lifestyle modifications Immunizations Immunization Administration Dates Next Due DTP 11/07/1988, 6,01/22/1984,1983, 4 Influenza, Unspecified 12/24/2023(Deferr ed: Patient Refused),01/09/2023(Deferred: Patient decision),11/02/2022(Deferred: Patient Refused),04/03/2022(Deferred: Patient Refused),11/02/2021(Deferred: Patient Refused),11/02/2021(Deferred: Patient decision) MMR 11/15/1992,06/04/1985 OPV 11/07/1988, 6,01/22/1984,1983, 4 Td, adsorbed 06/09/1997 Social History Tobacco Use Types Packs/Day Years [...] on file Legal Sex Female 9:07 AM OPTICAL LENS MANUFACTURING TECH Gender Identity Not on file Sexual Orientation Straight 01/18/2020 7: 52 AM OPTICAL LENS MANUFACTURING TECH 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 Not on file Not on file Not on file Last Filed Vital Signs Vital Sign Reading [...] 08/03/2024 3:27 PM CDT Plan of Treatment Not on file Medical Devices Implanted Type Area Shed Workers Supervisor Device Identifier Shelf Expiration Date Model / Serial / Lot [employer] Angio-Seal Vip 6fr Closere Device [id number] - [id number] Implanted:Qty: 1 on 08/17/2022 by Driss Burleson MD at [facility] Collagen [employer] 03/03/2023 [id number] / / [id number] [employer] Stent Coronary De Rx Cocr Ors Msn 3.0x40mm [id number] - [id number] Implanted:Qty: 1 on 08/17/2022 by Driss Burleson MD at [facility] Stent [employer] 06/10/2024 [id number] / / [id number] Procedures Procedure Name Priority Date/Time Associated Diagnosis Comments ALBUMIN CREATININE RATIO, URINE Routine 01/22/2024 3:20 PM OPTICAL LENS MANUFACTURING TECH DM type 2 with diabetic dyslipidemia (HCC) EGFR Routine 07/15/2023 6:53 AM CDT DM type 2 with diabetic dyslipidemia (HCC) HEMOGLOBIN A1C Routine 07/15/2023 6:53 AM CDT DM type 2 with diabetic dyslipidemia (HCC) LIPID PANEL Routine 07/15/2023 6:53 AM CDT DM type 2 with diabetic dyslipidemia (HCC) HEPATITIS C ANTIBODY Routine 01/18/2020 10:42 AM OPTICAL LENS MANUFACTURING TECH Immunosuppression from Last 3 Months or Most Recently Relevant to Health Maintenance Results * Albumin Creatinine Ratio, Urine (01/22/2024 3:20 PM OPTICAL LENS MANUFACTURING TECH) Albumin Ur 29.5 mg/L Comment: Interpretive Data No reference range established. Current interpretive data was last revised 2018. Creatinine Ur 219.0 mg/dL R[facility]IN [facility] Comment: Interpretive Data No reference range established. Current interpretive data was last revised 2018. Albumin Creatinine Ratio, Ur 13 1 - 29 mg/g RUBIN [facility] Urine 01/22/2024 3:20 PM OPTICAL LENS MANUFACTURING TECH 01/22/2024 5:47 PM OPTICAL LENS MANUFACTURING TECH Blaine PENA LAB URINE ORDERABLES Final Resu lt Performing Organization Address [facility]/ZIP Co de Phone Number RUBIN [address] [place] [address] * eGFR (07/15/2023 6:53 AM CDT) eGFR [...] of Race in Diagnosing Kidney Disease, JASN 2020). The CKD-EPI equation should not be used for patients with unstable renal function and has not been validated in children and those over 70. Current interpretive data was last reviewed 2021. Blood 07/15/2023 6:53 AM CDT 07/15/2023 7:09 AM CDT Blaine PENA LAB BLOOD ORDERABLES Final Resu lt Performing Organization Address City/[facility] Co de Phone Number RUBIN [facility] [facility] [place] [address] * (ABNORMAL) Hemoglobin A1c (07/15/2023 6:53 AM CDT) Hgb A1C 6.5(H) 4.0 - 5.6 % Estimated Average Glucose 140 mg/dL RUBIN Comment: The ADA recommends reporting an estimated Average Glucose (eAG) with all Hemoglobin A1c results using the equation derived from a study of 507 normal and diabetic adults. Minority populations were underrepresented and children were not included. (Diabetes Care 31:6808-1380, 2008). The eAG is not equivalent to a fasting glucose. Blood 07/15/2023 6:53 AM CDT 07/15/2023 7:09 AM CDT us Blaine PENA LAB BLOOD ORDERABLES Final Resu lt RUBIN [address] [facility] Department [place] [address] * (ABNORMAL) Lipid panel (07/15/2023 6:53 AM [...] on 2017. Triglycerides 117 <=149 mg/dL RUBIN Comment: Interpretive Data Ages < or = [...] on 2017. HDL 28(L) >=40 mg/dL RUBIN Comment: Interpretive Data Ages < or = [...] BLOOD ORDERABLES Final Resu lt RUBIN [facility] [address] [facility] Department [place] [address] * Hepatitis C antibody (01/18/2020 10:42 AM OPTICAL LENS MANUFACTURING TECH) Hep C Ab Nonreactive Nonreactive [facility] Comment:Antibodies to HCV no t detected. Does NOT exclude the possibility of recent exposure to HCV. Blood specimen (specimen) 01/18/2020 10:42 AM OPTICAL LENS MANUFACTURING TECH 01/18/2020 1:05 PM OPTICAL LENS MANUFACTURING TECH us Antonia Cole MD LAB MICROBIOLOGY - GENERAL O RDERABLES Edited Result - Final [facility] [address] [facility] Department [place] [address] from Last 3 Months or Most Recently Relevant to Health Maintenance Insurance [facility] CHOICE PLUS [facility] CHO[facility] PL[facility] CHO[facility] PLUS Advance Directives For more information, please contact: [phone] * Full Code (Latest Code Status on File) Date Activated Date Inactivated Comments 08/16/2022 5:46 PM 08/18/2022 6:21 PM Care Teams Lace Inspector Relationship Specialty Start Date End Date Blaine Link PA [address] [facility] [address] [place] [address] PCP - General Family Medicine 11/14/21 Sultan Johana Fox MD [address] [facility] [address] [place] [address] Gimp Buttonhole Machine Operator Cardiovascular Disease 07/31/19
[2024-08-10] MEDS: CYCLOBENZAPRINE HCL 10 MG TABLET PO (08:52)
[2024-08-10 08:53] VITALS: BP 118/89; PULSE 106; RESP 18; O2SAT 100
--- NOTE | 2024-08-10 09:16 | PC.NURSE ---
Pt refused Toradol due to having heart issues and was told by her enterprise architect not to take any NSAID
--- OUTSIDE RECORDS SUMMARY | 2024-08-10 09:27 | XMS_ITS | Clinical Summary ---
Author Organization [facility] Care Team Providers Care Mainspring Strip Inspector Name Role Phone Unavailable Primary Care Provider Unavailabl e Social History Tobacco Use Types Packs/Day Years Used Date Smoking Tobacco: Never Assessed Comments Unknown Sex and Gender Information Value Date Recorded Sex Assigned at Not on file Legal Sex Female 1:30 PM TRANSPLANT CASE MANAGER Gender Identity Not on file Sexual Orientation [...]
--- NOTE | 2024-08-10 09:33 | ED.BACK ---
HPI - Back Pain/Injury General Chief Complaint: Back Pain/Injury Stated Complaint: back pain Time Seen by Provider: 08/10/24 08:25 Source: patient, RN notes reviewed and old records reviewed Mode of arrival: ambulatory Limitations: no limitations History of Present Illness HPI Narrative: This is a 39 year old female with history of chronic back pain who presents for evaluation of low back pain. Patient reports having back pain for over a year. She is currently under that care of her PCP for lower back pain . She had MRI 1 year ago that shows compression at L5. She states today she fell and she landed on her buttocks. She reports having an exacerbation of her right lower back pain after the fall. She reports tingling to right foot. She last took tramadol 100 mg 12 hours ago. She denies saddle anesthesia, urinary or bowel incontinence. She denies urinary retention. MD elicited complaint: back pain Related Data Home Medications ?Medication ?Instructions ?Recorded ?Confirmed ?Last Taken ?Type levonorgestrel (Mirena) 1 device intrauterine ONCE 01/22/19 08/10/24 05/18/21 History tramadol 50 mg tablet 100 mg PO TID 05/18/21 08/10/24 09/03/23 History tirzepatide 2.5 mg/0.5 mL 5 mg subcut WEEKLY 09/03/23 08/10/24 Unknown History subcutaneous pen injector (Mounjaro) Allergies Allergy/AdvReac Type Severity Reaction Status Date / Time amoxicillin (From Augmentin) Allergy Itching Verified 08/10/24 08:31 clavulanic acid (From Allergy Itching Verified 08/10/24 08:31 Augmentin) Review of Systems Genitourinary: Genitourinary: Denies nocturia and Denies urinary incontinence Musculoskeletal: Musculoskeletal: Reports back pain Neurologic: Denies focal weakness and Denies weakness PMFSH Past Medical History Medical History Hyperlipidemia Coronary artery disease Pre-diabetes Psoriasis Hypertension NSTEMI (non-ST elevated myocardial infarction) (05/18/21) Chronic back pain Psoriatic arthritis Surgical History Surgical History History of coronary artery stent placement History of cardiac catheterization History of back surgery L5/S1 History of tonsillectomy Family History Family History Father Heart attack, Onset Age: 31 Three heart attacks Hx of CABG And valve surgery Sleep apnea Psoriasis Sibling Heart attack, Onset Age: 35 Grandparent Breast cancer COPD (chronic obstructive pulmonary disease) Mother Leukemia COPD (chronic obstructive pulmonary disease) Sleep apnea Psoriasis Social History Social History Social History: Surrogate medical decision maker: Huey Alba, significant other. Code status: Full code. Smoking packs per day: 1 Smoking cigarettes per day: 20.0 Years smoked: 15 Smoking pack-years: 15.00 Smoking status: Current every day smoker Tobacco type: e-cigarettes/vaping Smokeless tobacco user: other Additional smoking assessment comments: pt now vapes Alcohol intake: never Alcohol use details: occasional, could not identify last time she drank (11/2022) Substance use: never Substance use type: does not use Do You Feel Safe in your Home?: Yes Lack of Transportation: No Lack of Food: Never True Current Housing: I Have Housing Concerned About Future Housing: No Difficulty Paying Gas/Electric Bills: No Difficulty Paying for Meds: No Currently Unemployed: No Education: Trade/Vocational Certificate Difficulty w/ Childcare or Family Care: No Living arrangements: with family Additional living arrangements comments: Lives in [place] with significant other and children. 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 Spiritual care concerns: No Exam Const: General: healthy appearing and no acute distress Nutritional Appearance: well nourished Orientation/consciousness: patient oriented x3 HENMT: Head: normal to inspection Eyes: EOM: EOMs intact bilaterally Neck: Neck: normal visual inspection Resp: Effort & Inspection: normal respiratory effort Auscultation: clear to auscultation bilaterally Cardio: Rate: regular rate Rhythm: regular rhythm Heart sounds: no murmurs GI: GI Palp: Yes Soft to palpation, No Tenderness to palpation present (GI), No Guarding due to palpation present (GI) and No Rigid due to palpation Auscultation: normal bowel sounds Back/Spine/Pelvis: Back: no CVA tenderness Thoracic/Lumbar Spine: paraspinal muscle tenderness Skin: General skin exam: normal color Rashes: no rashes Neuro: General: patient oriented x3 and moves all extremities Cranial nerves: Yes Nystagmus not present Speech: normal speech Extrem: General: normal to inspection Psych: Mental Status: mental status grossly normal Affect: normal affect Attitude: cooperative Course Reevaluation(s) Reevaluation #1: Patient is sitting in bed in no acute distress. I discussed CT results with no acute fracture. She does not have signs of cord compression. I discussed discharge plan and pain managment. She denies any other issues or concerns. Date: 08/10/24 Time: 10:26 Vital Signs Vital signs: Vital Signs Temperature 98.2 F 08/10/24 08:24 Pulse Rate 91 08/10/24 08:24 Respiratory Rate 19 08/10/24 08:24 Blood Pressure 116/88 08/10/24 08:24 Pulse Oximetry 100 08/10/24 08:24 Oxygen Delivery Room Air 08/10/24 08:24 Temperature 98.2 F 08/10/24 08:24 Pulse Rate 98 08/10/24 10:43 Respiratory Rate 16 08/10/24 10:43 Blood Pressure 129/78 08/10/24 10:43 Pulse Oximetry 100 08/10/24 10:43 Oxygen Delivery Room Air 08/10/24 08:24 MDM - Back Pain/Injury Differential Diagnosis Differential diagnosis: Likely lumbar radiculopathy, sciatica and strain of lumbar region Medical Records Attestation: I reviewed the patient's medical records. Lab Data Attestation: I reviewed the patient's lab results. Imaging Data Radiologist's impression: ITS Impressions Lumbar Spine CT 08/10/24 09:19 IMPRESSION: 1. Lumbar spondylosis, moderate at L5-S1 and otherwise mild. Discharge Plan Discharge Clinical Impression: Lumbar radiculopathy Patient Disposition: Home Condition: Improved Instructions: Antibiotic Form, Acute Low Back Pain (ED), Lumbar Radiculopathy (ED) Additional Instructions: Please follow up with your primary care provider Patient Language: Kazakh Prescriptions: New methylprednisolone [Medrol (Atul)] 4 mg tablets,dose pack See Rx Instructions .ROUTE .COMPLEX Qty: 21 0RF Rx Instructions: for 6 days methocarbamol 750 mg tablet 750 mg PO TID PRN (Reason: pain (scale score 4-6)) Qty: 14 0RF hydrocodone-acetaminophen 5-325 mg tablet 1 tablet PO Q6H PRN (Reason: pain) Qty: 7 0RF naloxone [Narcan] 4 mg/actuation spray,non-aerosol 4 mg intranasal Q2M PRN (Reason: opioid overdose) Qty: 2 0RF Rx Instructions: spray 1 dose into ONE nostril; alternate nostrils w each dose until help arrives No Action Mirena 20 mcg/24 hours (5 yrs) 52 mg Intrauterine Device 1 device INTRAUTERINE ONCE nitroglycerin [Nitrostat] 0.4 mg Tablet, Sublingual 0.4 mg sublingual Q5MIN PRN (Reason: Chest Pain) Qty: 30 0RF tramadol 50 mg tablet 100 mg PO TID Mounjaro 2.5 mg/0.5 mL pen injector 5 mg SUBCUT WEEKLY Rx Instructions: Saturday Follow-up/Referrals: Nikolay,BECKY Valladares [Primary Care Provider] -
[2024-08-10] MEDS: HYDROmorphone HCL INJ (*CRX) 2 MG/ML VIAL 0.5 MG IV PUSH (09:37)
[2024-08-10] MEDS: LIDOCAINE 5% PATCH 1 PATCH TRANSDERM (09:53)
[2024-08-10 10:43] VITALS: BP 129/78; PULSE 98; RESP 16; O2SAT 100
== END 2024-08-10 10:49 | disposition home or self-care (01) ==
PROVIDERS: Emergency Provider General Practice; PCP Physician Assistant Medical
DX: M54.16 Radiculopathy, lumbar region (principal); F17.210 Nicotine dependence, cigarettes, uncomplicated; E78.5 Hyperlipidemia, unspecified; I25.10 Atherosclerotic heart disease of native coronary artery without angina pectoris; I10 Essential (primary) hypertension; I25.2 Old myocardial infarction; L40.50 Arthropathic psoriasis, unspecified
CPT/HCPCS: 72131; 96374; 99284; A9270; J1171